=== PATIENT | male | born 1965 | race Caucasian/White ===

== ENCOUNTER → 2020-01-16 08:22 | Outpatient (BNVA) | payer MEDICARE, SELFPAY | PROVIDERS: PCP Family Medicine; Referring Provider Family Medicine; Visit Provider Anesthesiology Pain Medicine | DX: M50.90 Cervical disc disorder, unspecified, unspecified cervical region (principal); M43.12 Spondylolisthesis, cervical region; M54.12 Radiculopathy, cervical region; M54.16 Radiculopathy, lumbar region; K59.03 Drug induced constipation; T40.2X5A Adverse effect of other opioids, initial encounter; X58.XXXA Exposure to other specified factors, initial encounter; G37.3 Acute transverse myelitis in demyelinating disease of central nervous system; Z79.891 Long term (current) use of opiate analgesic | CPT/HCPCS: 99205 ==

== ENCOUNTER → 2020-02-06 08:55 | Outpatient (BNVA) | payer MEDICARE, SELFPAY | PROVIDERS: PCP Family Medicine; Visit Provider Anesthesiology Pain Medicine | DX: M54.12 Radiculopathy, cervical region (principal); M50.90 Cervical disc disorder, unspecified, unspecified cervical region; M54.42 Lumbago with sciatica, left side; M54.41 Lumbago with sciatica, right side; M54.16 Radiculopathy, lumbar region; G37.3 Acute transverse myelitis in demyelinating disease of central nervous system; K59.03 Drug induced constipation; T40.2X5A Adverse effect of other opioids, initial encounter; X58.XXXA Exposure to other specified factors, initial encounter; Z79.891 Long term (current) use of opiate analgesic | CPT/HCPCS: 99213 ==

== ENCOUNTER 2020-02-12 11:24 | Outpatient (RCR) | payer MEDICARE, SELFPAY | END 2020-02-17 23:59 | disposition home or self-care (01) | LOC: SPT 11:24 | PROVIDERS: PCP Family Medicine; Referring Provider Anesthesiology Pain Medicine; Visit Provider Anesthesiology Pain Medicine | DX: G37.3 Acute transverse myelitis in demyelinating disease of central nervous system (principal) | CPT/HCPCS: 97110; 97162 ==

== ENCOUNTER 2020-02-18 06:00 | Outpatient (RCR) | payer MEDICARE, SELFPAY | END 2020-03-19 23:59 | disposition home or self-care (01) | LOC: SPT 06:00 | PROVIDERS: PCP Family Medicine; Referring Provider Anesthesiology Pain Medicine; Visit Provider Anesthesiology Pain Medicine | DX: G37.3 Acute transverse myelitis in demyelinating disease of central nervous system (principal) | CPT/HCPCS: 97110 ==

== ENCOUNTER 2020-03-04 08:31 | Outpatient (CLI) | payer MEDICARE, SELFPAY ==
--- NOTE | 2020-03-04 08:45 | MR_ITS ---
WS: [id number] MRI CERVICAL SPINE HISTORY: M54.12 - Radiculopathy, cervical region COMPARISON: None available. Straightening of the normal cervical lordosis. 2 mm retrolisthesis of C3. Prior anterior cervical fusion from C5 to C7. Anterior fusion with complete ankylosis at the C5-6 dis c level. Signal within the cord is normal. No inferior displacement of cerebellar tonsils. Craniocervical junction, C1 and C2 relationship, odontoid process and soft tissues are normal. C2-C3: Normal. C3-C4: Shallow central disc protrusion with slight contact on the ventral thecal sac with no stenosis . Bilateral foraminal osteophytes resulting in mild central and bilateral foraminal stenosis. C4-C5: Mild osteophytic ridging and mild facet arthritis. Mild central and LEFT foraminal stenosis. D isc osteophyte complex slightly larger in the RIGHT foramen with moderate RIGHT foraminal narrowing. C5-C6: No significant stenosis. C6-C7: Mild annular disc bulging and osteophytic ridging. Mild bilateral foraminal narrowing. C7-T1: Mild annular disc bulging and osteophytic ridging. Mild central and bilateral foraminal stenos is. Paraspinal soft tissue are normal. MR/MR cervical spin wo con* [id number] IMPRESSION: 1. Prior anterior cervical fusion from C5 to C7. Complete ankylosis at the C5- 6 disc level. 2. No severe central or foraminal stenosis. 3. Mild central and bilateral foraminal stenosis at C3-4 predominantly due to osteophytic ridging. 4. Moderate RIGHT foraminal stenosis at C4-5 due to disc osteophyte complex. O therwise mild central LEFT foraminal stenosis at C4-5. 5. Mild bilateral foraminal stenosis at C6-7 and C7-T1. Mild central stenosis at C7-T1.
--- NOTE | 2020-03-04 09:30 | MR_ITS ---
WS: [id number] MRI LUMBAR SPINE NONCONTRAST HISTORY: M54.16 - Radiculopathy, lumbar region COMPARISON: None available. TECHNIQUE: Sagittal and axial multisequence imaging is submitted. Normal lumbar alignment with no compression fractures or marrow edema. Mild disc desiccation throughout. No fractures. Conus terminates normally at L1-2 disc level. L1-L2: Normal. L2-L3: Normal. L3-L4: Mild ligamentum flavum arthritis. Mild annular disc bulging and encroachment upon the thecal s ac. There is slight narrowing of the LEFT subarticular recess and central canal. Moderate LEFT forami nal stenosis. Mild LEFT subarticular recess and central stenosis. L4-L5: Mild annular disc bulging with moderate facet arthritis. Mild ligamentum flavum hypertrophy. M ild encroachment into the subarticular recesses resulting in mild to moderate bilateral foraminal alexandre nosis. L5-S1: Very slight annular disc bulging with facet and ligamentum flavum hypertrophy. Mild bilateral foraminal narrowing. MR/MR lumbar spine wo con* [id number] IMPRESSION: 1. No severe central or foraminal stenosis. 2. Moderate LEFT foraminal stenosis at L3-4 with mild LEFT subarticular recess and central stenosis at L3-4. 3. Mild to moderate bilateral foraminal stenosis at L4-5 and mild bilateral fo raminal stenosis at L5-S1. Stenoses predominantly due to facet and ligamentum f lavum arthritis.
== END 2020-03-04 08:32 | disposition home or self-care (01) ==
LOC: RADSHAW 08:35
PROVIDERS: PCP Family Medicine; Visit Provider Anesthesiology Pain Medicine
DX: M54.12 Radiculopathy, cervical region (principal); M54.16 Radiculopathy, lumbar region; M48.061 Spinal stenosis, lumbar region without neurogenic claudication
CPT/HCPCS: 72141; 72148

== ENCOUNTER → 2020-03-27 09:25 | Outpatient (BNVA) | payer MEDICARE, SELFPAY | PROVIDERS: PCP Family Medicine; Visit Provider Anesthesiology Pain Medicine | DX: M54.12 Radiculopathy, cervical region (principal); M50.90 Cervical disc disorder, unspecified, unspecified cervical region; G37.3 Acute transverse myelitis in demyelinating disease of central nervous system; M54.16 Radiculopathy, lumbar region; M54.9 Dorsalgia, unspecified; K59.03 Drug induced constipation; T40.2X5A Adverse effect of other opioids, initial encounter; X58.XXXA Exposure to other specified factors, initial encounter; Z79.899 Other long term (current) drug therapy; Z79.891 Long term (current) use of opiate analgesic | CPT/HCPCS: 99214; 99215 ==

== ENCOUNTER → 2020-04-24 10:59 | Outpatient (BNVA) | payer MEDICARE, SELFPAY | PROVIDERS: PCP Family Medicine; Visit Provider Anesthesiology Pain Medicine | DX: G37.3 Acute transverse myelitis in demyelinating disease of central nervous system (principal); M54.16 Radiculopathy, lumbar region; M54.12 Radiculopathy, cervical region; M50.90 Cervical disc disorder, unspecified, unspecified cervical region; M54.9 Dorsalgia, unspecified; K59.03 Drug induced constipation; T40.2X5A Adverse effect of other opioids, initial encounter; X58.XXXA Exposure to other specified factors, initial encounter; Z79.899 Other long term (current) drug therapy; Z79.891 Long term (current) use of opiate analgesic | CPT/HCPCS: 99214 ==

== ENCOUNTER 2020-06-24 10:47 | Outpatient (CLI) | payer MEDICARE, SELFPAY ==
--- NOTE | 2020-06-24 11:04 | MR_ITS ---
WS: [id number] MRI LEFT WRIST without CONTRAST. COMPARISON: None Multiplanar, multisequence imaging is performed without contrast. Marker is placed along the dorsal surface of the wrist at the area of pain. There is a small amount o f edema within the proximal scaphoid and adjacent lunate. The abnormal signal involves only focal are as of the bone. Abnormal signal also extends into the scapholunate ligament. Very mild widening of th e scapholunate interval. No additional marrow signal abnormalities. There is a small amount of soft t issue edema adjacent to the hamate. Very mild degenerative changes at the TFCC. No definite tear is identified. No appreciable fluid in t he distal radial ulnar joint. There is mild narrowing of the radiocarpal joint. MR/MR wrist LT wo con* [id number] IMPRESSION: 1. Edema in the proximal scaphoid consistent with a very small cortical fractu re with tear extending into the scapholunate ligament. 2. Small amount of marrow edema in the lunate. 3. No dislocation or separation.
== END 2020-06-24 10:48 | disposition home or self-care (01) ==
LOC: RADWPI 10:56
PROVIDERS: PCP Family Medicine; Visit Provider Nurse Practitioner Family
DX: M25.532 Pain in left wrist (principal); R60.0 Localized edema
CPT/HCPCS: 73221

== ENCOUNTER → 2020-07-08 10:07 | Outpatient (BNVA) | payer MEDICARE, SELFPAY | PROVIDERS: PCP Family Medicine; Referring Provider Nurse Practitioner Family; Visit Provider Specialist | DX: M25.532 Pain in left wrist (principal) | CPT/HCPCS: 73110 ==

== ENCOUNTER 2020-07-08 14:03 | Outpatient (CLI) | payer MEDICARE, SELFPAY | END 2020-07-08 14:04 | disposition home or self-care (01) | LOC: SPT 14:04 | PROVIDERS: PCP Family Medicine; Visit Provider Specialist | DX: Z46.89 Encounter for fitting and adjustment of other specified devices (principal); G37.3 Acute transverse myelitis in demyelinating disease of central nervous system | CPT/HCPCS: 97760; L3807 ==

== ENCOUNTER 2020-10-12 11:47 | Outpatient (RCR) | payer MEDICARE, SELFPAY | END 2020-10-17 23:59 | disposition home or self-care (01) | LOC: SOT 11:47 | PROVIDERS: PCP Family Medicine; Visit Provider Orthopaedic Surgery Hand Surgery | DX: S62.002D Unspecified fracture of navicular [scaphoid] bone of left wrist, subsequent encounter for fracture with routine healing (principal); X58.XXXD Exposure to other specified factors, subsequent encounter | CPT/HCPCS: 97110; 97165; 97530 ==

== ENCOUNTER 2020-10-18 06:00 | Outpatient (RCR) | payer MEDICARE, SELFPAY | END 2020-11-17 23:59 | disposition home or self-care (01) | LOC: SOT 06:00 | PROVIDERS: PCP Family Medicine; Visit Provider Orthopaedic Surgery Hand Surgery | DX: S62.002D Unspecified fracture of navicular [scaphoid] bone of left wrist, subsequent encounter for fracture with routine healing (principal); X58.XXXD Exposure to other specified factors, subsequent encounter | CPT/HCPCS: 97110; 97530 ==

== ENCOUNTER → 2021-05-06 08:49 | Outpatient (BNVA) | payer MEDICARE, SELFPAY | PROVIDERS: PCP Family Medicine; Visit Provider Internal Medicine | DX: E66.9 Obesity, unspecified (principal); Z68.42 Body mass index [BMI] 45.0-49.9, adult; Z87.891 Personal history of nicotine dependence | CPT/HCPCS: 99204; 99214 ==

== ENCOUNTER → 2021-05-24 10:19 | Outpatient (BNVA) | payer MEDICARE, SELFPAY | PROVIDERS: PCP Family Medicine; Visit Provider Podiatrist Foot & Ankle Surgery | DX: M79.671 Pain in right foot (principal); M77.31 Calcaneal spur, right foot | CPT/HCPCS: 73630 ==

== ENCOUNTER → 2021-06-21 09:44 | Outpatient (BNVA) | payer MEDICARE, SELFPAY | PROVIDERS: PCP Family Medicine; Visit Provider Podiatrist Foot & Ankle Surgery | DX: M21.621 Bunionette of right foot (principal); Z87.891 Personal history of nicotine dependence | CPT/HCPCS: 99214; 99215 ==

== ENCOUNTER 2021-06-25 08:59 | Day surgery (SDC) | payer MEDICARE, SELFPAY ==
[2021-06-24 14:28] VITALS: BMI 46.0
[2021-06-25] VITALS (9 sets, daily range): BP systolic 104–127; BP diastolic 51–82; PULSE 45–62; RESP 13–20; TEMP 36.1–36.6; O2SAT 95–99
--- NOTE | 2021-06-25 | SCC_ITS ---
Procedure done: Right tailor's bunionectomy CPT code 60773 1 seconds of fluoroscopic guidance, for a cumulative dose of 0.02mGy, was provided to Dr. Lange by the radiology department. C-arm images of the RIGHT foot were saved for the patient's permanent record. JUAN ANTONIO
[2021-06-25] MEDS: sodium chloride 0.9% 1,000 ML 30 ML IV (10:01)
[2021-06-25] MEDS: CELEcoxib 200 mg Capsule 400 MG PO (10:02)
--- NOTE | 2021-06-25 10:14 | ANES.PREANE2 ---
Pre-Anesthetic Assessment Height/Weight: Height 1.68 m Weight 129.274 kg Temp Pulse Resp BP Pulse Ox 97.5 F L 52 L 18 127/81 95 06/25/21 09:38 06/25/21 09:38 06/25/21 09:38 06/25/21 09:38 06/25/21 09:38 Preop Diagnosis: Painful right tailor's bunion Operation Date: 06/25/21 10:45 Proposed Procedures p Bunionectomy Tailors [id number]/[id number](Right) - Leon Lange DPM s Hammertoe Correction(Right) - Leon Lange DPM Familial anesthetic complications: none Was Beta Lori taken within 24 hours: Yes Was Clonidine taken within 24 hours: N/A Last intake: Intake Last Liquid Date 06/24/21 Last Liquid Time 20:00 Last Solid Date 06/24/21 Last Solid Time 20:00 Social Tobacco (chews) and No alcohol Exam alert, oriented x 3, clear to auscultation bilaterally and regular rate & rhythm Airway Mallampati: Class III Dentition: other (missing) Pulmonary Sleep Apnea (severe) CV/HEM Atrial Fibrillation and Hypertension s/p ablation GI Gastroesophageal Reflux Disease Metabolic Morbid Obesity Neuropsych transverse myelitis Anesthetic Plan ASA status: 3 Anesthesia: MAC Risk of > 500 ml blood loss (7ml/kg in children): No Medications/Allergies Home Medications Medication Instructions Recorded Confirmed Last Taken Type albuterol sulfate 90 mcg/actuation 2 puff INHALATION Q6H PRN 01/16/20 06/25/21 1 Day Ago History aerosol inhaler (Ventolin HFA) ~06/24/21 baclofen 5 mg tablet 20 mg PO DAILY 01/16/20 06/25/21 1 Day Ago History ~06/24/21 epinephrine 0.3 mg/0.3 mL 0.3 mg IM Q15M PRN 01/16/20 06/24/21 Unknown History injection, auto-injector ezetimibe 10 mg tablet 10 mg PO DAILY 01/16/20 06/25/21 1 Day Ago History ~06/24/21 fluticasone propionate 50 2 spray INTRANASAL DAILY 01/16/20 06/25/21 1 Day Ago History mcg/actuation nasal ~06/24/21 spray,suspension (Allergy Relief (fluticasone)) levocetirizine 5 mg tablet 5 mg PO DAILY 01/16/20 06/25/21 1 Day Ago History ~06/24/21 multivitamin with iron-mineral 1 tab PO DAILY 01/16/20 06/25/21 1 Day Ago History ~06/24/21 olopatadine 0.2 % eye drops 1 drop OPHTHALMIC (EYE) DAILY 01/16/20 06/25/21 2 Days Ago History ~06/23/21 pantoprazole 40 mg granules 40 mg PO DAILY 01/16/20 06/25/21 1 Day Ago History delayed-release for susp in packet ~06/24/21 sennosides 8.6 mg-docusate sodium 1 tab-cap PO DAILY 01/16/20 06/25/21 1 Day Ago History 50 mg tablet (Senexon-S) ~06/24/21 zolpidem 10 mg tablet (Ambien) 10 mg PO .1 hs tab 02/06/20 06/25/21 1 Day Ago History ~06/24/21 FAST FORM COCK UP SPLINT #1 ea NS 07/08/20 06/21/21 Unknown Rx zinc 50 mg tablet 50 mg PO DAILY 11/17/20 06/25/21 1 Day Ago History ~06/24/21 flecainide 150 mg tablet 150 mg PO Q12H #60 tab 04/12/21 06/25/21 1 Day Ago Rx ~06/24/21 metoprolol succinate 25 mg 25 mg PO DAILY #30 tab 04/12/21 06/25/21 1 Day Ago Rx tablet,extended release 24 hr ~06/24/21 meloxicam 15 mg tablet 15 mg PO DAILY 05/06/21 06/25/21 1 Day Ago History ~06/24/21 pen needle, diabetic 31 gauge x #100 ea 05/06/21 06/21/21 Unknown Rx 1/4 pregabalin 100 mg capsule (Lyrica) 150 mg PO BID 06/24/21 06/25/21 1 Day Ago History ~06/24/21 Allergies Allergy/AdvReac Type Severity Reaction Status Date / Time insect venom Allergy Severe ALGY-Anaphy Verified 06/25/21 09:48 laxis mirtazapine Allergy Intermediate ITCHING Verified 06/25/21 09:48 gabapentin Allergy UNKNOWN Verified 06/25/21 09:48 Current Medications Generic Name Dose Route Start Last Admin Trade Name Kendall PRN Reason Stop Dose Admin Sodium Chloride 1,000 mls @ 30 mls/hr 06/25/21 09:45 06/25/21 10:01 Sodium Chloride 0.9% IV 06/26/21 09:44 30 mls/hr .Q24H MARGE Administration PFSH Anesthesia Medical History Combined hyperlipidemia JESUS (generalized anxiety disorder) GERD (gastroesophageal reflux disease) History of myelitis HTN (hypertension) Low back pain Obesity Sleep apnea Surgical History History of cardiac radiofrequency ablation (RFA) History of cholecystectomy Hx of hernia repair Family History Sister Cancer Father Cancer Diabetes Mother CAD (coronary artery disease) Diabetes Sister Diabetes Social History Smoking and tobacco status: former smoker Quit status (tobacco): has quit using tobacco Second hand smoke exposure: No Smoking risk assessment/counseling performed?: No Alcohol intake: current Alcohol intake frequency: holidays/special occasions only Alcohol type: beer and hard liquor Desire information about alcohol rehabilitation?: No Counseling given: No Desire information about substance/drug rehabilitation?: No Counseling given: No Adopted: No Caregiver/support person: No Lives independently: Yes Household members: spouse Housing: House Marital status: Number of children: 2 Highest education level completed: High School Graduate service: No Current occupational status: disabled Pets and animals: Yes History of recent travel: No Leisure activites: hunting and fishing Sexually active: Yes Current gender identity: Male Fabby/Congregational: Muslim Special fabby needs: No Agree to transfusion: Yes Data Anesthesia Cardiac Studies: Cardiac Event Monitor 11/18/20
--- NOTE | 2021-06-25 11:03 | W.PM.OPSUD ---
Surgery/Procedure H&P Update DATE OF PROCEDURE: June 25, 2021 DATE H&P PERFORMED: 06/21/21 CHANGES TO PREVIOUS DOCUMENTATION: None PREOP DIAGNOSIS: Painful right tailor's bunion PLANNED PROCEDURE: Operation Date: 06/25/21 10:45 Proposed Procedures p Bunionectomy Tailors [id number]/m79.673(Right) - Leon Lange DPM s Hammertoe Correction(Right) - Leon Lange DPM
[2021-06-25] MEDS: ceFAZolin 3,000 MG in sodium chloride 0.9% (100 ml) 100 ML 200 MG IV (11:10)
--- NOTE | 2021-06-25 11:53 | P.OP_ITS ---
Operative Report Date of procedure: June 25, 2021 Pre-op diagnosis: Right tailor's bunion Post-op diagnosis: Same Procedure done: Right tailor's bunionectomy CPT code 68603 Implants: Right medical now [place] ProStep Specimens removed/disposition: None Pathology: None Surgeon: Leon Lange D.P.M. Smash Fixer: Shana Estimated blood loss: 5 23 IV fluids: 0 Urine output: None Complications: None Brief History: Progressive pain at the right lateral foot associated with the patient's mao's bunion, has a sharp stabbing pain on a daily basis no longer alleviated by wide accommodative shoes, padding, bracing and anti-inflammatories or activity modification. Would like to proceed with surgical correction with efforts of reducing his pain. Risks include pain, bleeding, numbness, infection, hardware failure, hardware rotation, delayed union, malunion, nonunion, recurrence of deformity, overcorrection deformity, failure to correct formally, chronic swelling, paresthesias, permanent numbness. Deep vein thrombosis, heart attack, stroke and . Patient is agreeable wishes to proceed. Informed consent signed by patient and myself. Patient n.p.o. since midnight. I initialed his right foot. No guarantees written, expressed or implied. Procedure: Under mild sedation the patient was brought to the operating room and remained on the gurney in supine position. A timeout was performed. Anesthesia was then administered by the anesthesia service. Local anesthesia injected by myself consisting of 20 cc of 0.25% Marcaine plain and a reverse Huizar block fashion to the right foot. Well-padded pneumatic tourniquet applied to the right ankle. The right lower extremity was then scrubbed, prepped and draped utilizing normal aseptic technique. Right foot was exanguinated with an Esmarch bandage and the tourniquet inflated to 250 mmHg. Attention was directed to the dorsal lateral aspect of the right fifth metatarsal phalangeal joint where a linear longitudinal incision was made medial and parallel to the extensor tendons. Dissection was carried down through the skin and subcutaneous tissue with care taken to retract and preserve neurovascular and tendinous structures. All bleeders were ligated and cauterized as necessary. Head of the fifth metatarsal dorsally, laterally and medially was freed from its soft tissue attachments followed by osteotomy at the metaphyseal flare in a transverse fashion and the head of the fifth metatarsal shifted medially and in more anatomically corrected position. Utilizing broaching small ProStep intramedullary implant was sized and implanted followed by fixation utilizing standard AO technique and professor of religious studies recommendations with a locking screw. Lateral shelf was transected and all rough edges were smoothed. Intraoperative fluoroscopy confirmed reduction of the intermetatarsal angle and excellent medial shift of the fifth metatarsal head which was fixated utilizing intramedullary implant and locking screw. Incision site was flushed with saline solution. Closed in a layered fashion with 3-0 Vicryl and 4-0 nylon. Exparel injected this was 10 cc of Exparel expanded with 10 cc of 0.25% Marcaine plain diffuse about the operative site in a grid like fashion subcutaneously. Incision was dressed with Adaptic, sterile 4 x 4, Kerlix, Javy wrap followed by application of a cam boot. Tourniquet was deflated and a prompt hyperemic response was noted to the distal digits of the right foot. Patient tolerated the procedure and anesthesia well and was transferred to the PACU with vital signs stable and vascular status intact. Following a period of postop monitoring he will be discharged home was prescribed oxycodone 10/325 mg to be taken every 6 hours as needed for pain. His elevate his right foot while resting. May be protected weightbearing with a cam boot. He is to keep his surgical dressing clean, dry and intact until follow-up next Monday in clinic for his first dressing change.
--- NOTE | 2021-06-25 12:07 | XR_ITS ---
WS: [id number] RIGHT FOOT: 3 VIEW(S) TECHNIQUE: AP, oblique and lateral. HISTORY: POST OP COMPARISON: 05/24/2021 Osteotomy involving the distal fifth metatarsal. Orthopedic fixation across the distal fifth metatars al ostomy site. Postoperative changes in the soft tissues. Better alignment involving the fifth metat arsal head. XR/XR foot RT min 3V* [id number] IMPRESSION: Status post fifth metatarsal osteotomy with screw and fixation across the osteo zain site.
--- NOTE | 2021-06-26 07:19 | ANE.PACU2 ---
Inpatient post-anesthesia follow up: Airway intact: Yes Vital signs: Temperature 97 F Pulse Rate 45 Respiratory Rate 18 Blood Pressure 127/82 Pulse Oximetry 98 Oxygen Delivery Me thod Room Air Oxygen Flow Rate 6.0 Fraction of Inspir ed Oxygen Hydration adequate: Yes Nausea and vomiting: No Pain level: 2 Mental status: Baseline
== END 2021-06-25 13:21 | disposition home or self-care (01) ==
PROVIDERS: PCP Family Medicine; Visit Provider Podiatrist Foot & Ankle Surgery
PROC: 0QBP0ZZ Excision of Left Metatarsal, Open Approach (ICD-10-PCS; CPT 28110; principal; 2021-06-25 10:45)
DX: M21.621 Bunionette of right foot (principal); F17.220 Nicotine dependence, chewing tobacco, uncomplicated; G47.30 Sleep apnea, unspecified; I48.91 Unspecified atrial fibrillation; I10 Essential (primary) hypertension; K21.9 Gastro-esophageal reflux disease without esophagitis; E66.01 Morbid (severe) obesity due to excess calories; Z68.42 Body mass index [BMI] 45.0-49.9, adult; E78.2 Mixed hyperlipidemia; E66.9 Obesity, unspecified; Z87.891 Personal history of nicotine dependence
CPT/HCPCS: 28110; 73630; 76000; C1713; C9290; J0690; J2250; J2704; J3010; J3490; J7030

== ENCOUNTER → 2021-07-02 09:15 | Outpatient (BNVA) | payer MEDICARE, SELFPAY | PROVIDERS: PCP Family Medicine; Visit Provider Podiatrist Foot & Ankle Surgery | DX: Z98.890 Other specified postprocedural states (principal) | CPT/HCPCS: 73630 ==

== ENCOUNTER → 2021-07-08 13:05 | Outpatient (BNVA) | payer MEDICARE, SELFPAY | PROVIDERS: PCP Family Medicine; Visit Provider Podiatrist Foot & Ankle Surgery | DX: M21.621 Bunionette of right foot (principal); Z98.890 Other specified postprocedural states | CPT/HCPCS: 73630 ==

== ENCOUNTER → 2021-07-22 13:03 | Outpatient (BNVA) | payer MEDICARE, SELFPAY | PROVIDERS: PCP Family Medicine; Visit Provider Podiatrist Foot & Ankle Surgery | DX: Z98.890 Other specified postprocedural states (principal); M21.621 Bunionette of right foot | CPT/HCPCS: 73630 ==

== ENCOUNTER → 2021-08-05 13:09 | Outpatient (BNVA) | payer MEDICARE, SELFPAY | PROVIDERS: PCP Family Medicine; Visit Provider Podiatrist Foot & Ankle Surgery | DX: Z98.890 Other specified postprocedural states (principal) | CPT/HCPCS: 73630 ==

== ENCOUNTER → 2021-08-30 10:29 | Outpatient (BNVA) | payer MEDICARE, SELFPAY | PROVIDERS: PCP Family Medicine; Visit Provider Internal Medicine Cardiovascular Disease | DX: R07.9 Chest pain, unspecified (principal); R00.2 Palpitations; I48.0 Paroxysmal atrial fibrillation; I10 Essential (primary) hypertension; E66.9 Obesity, unspecified; Z68.42 Body mass index [BMI] 45.0-49.9, adult; I45.10 Unspecified right bundle-branch block; G47.33 Obstructive sleep apnea (adult) (pediatric) | CPT/HCPCS: 93005; 99214 ==

== ENCOUNTER 2021-09-02 10:33 | Outpatient (CLI) | payer MEDICARE, SELFPAY ==
--- NOTE | 2021-09-02 10:43 | NMCV_ITS ---
NM nito perf SPECT r/s* [id number] Weeks, Cal Age: 55 Gender: M : 1965 Exam Date: 09/02/2021 12:04 Ordering Phys: Leesa Chaney MD ([email or web address]) Technologist: VIVIAN Shanks Exam Location: [facility] Indications: CHEST PAIN STRESS TEST Please see separate stress test report in [facility] for full findings IMAGE PROTOCOL Rest/Stress 1 Lexiscan Day Radiopharmaceutical Dose (mCi) Administration Site Administered by Rest: Tc-99m 11.0 IV VIVIAN Garcia Sestamibi Stress:Tc-99m 32.9 IV VIVIAN Garcia Sestamibi Rest: 02-Sep-2021 60 Discovery 630 Stress: 02-Sep-2021 30 Discovery 630 0.4mg Lexiscan. Images obtained in supine and prone position. SPECT RESULTS Technical Quality: Excellent Raw Data Analysis: Normal Image Corrections: No attenuation or motion correction applied Summed Stress Score: 6 Summed Rest Score: 3 Summed Difference Score: 3 PERFUSION FINDINGS Small size perfusion abnormality of mild severity of mid to apical inferolateral wall on rest images with reversibility in mid to apical inferior linton on supine stress images. Prone stress images with improved tracer uptake in inferior and mid inferolateral linton. FUNCTIONAL RESULTS (calculated via Gated SPECT) Stress Image LV EF (%): 67 Stress EDV (mL):153 TID: 0.95 Stress ESV (mL):51 FUNCTIONAL FINDINGS: The left ventricle is normal in size. Transient Ischemia Dilatation of 0.95. There is normal left ventricular systolic function. The left ventricular ejection fraction is normal with a value of 67%. There is normal left ventricular wall thickening. IMPRESSIONS 1. Small sized perfusion abnormality of mild severity of mid to apical inferolateral wall with reversibility in mid to apical inferior linton. 2. This may represent small area of ischemia in right coronary artery/circumflex artery territory. However, attenuation artifact cannot be completely ruled out. 3. Overall left ventricular systolic function is normal without regional wall motion abnormalities, LVEF=67%. 4. EKG portion of the study will be reported separately. Leesa Chaney MD (Electronically Signed) Final Date: 06 September 2021 15:18 S
--- NOTE | 2021-09-02 10:43 | ECG_ITS ---
[facility] Test Date: 2021-09-02 Pat Name: Cal Thapa Department: Room: Gender: Male Digital Product Manager: Marielos Ashley : 1965 Requested By: Leesa Chaney Order Number: [id number] Madhav MD: Leesa Chaney M.D. Interpretive Statements NAME OF STUDY: LEXISCAN SESTAMIBI STRESS TEST INDICATION: Chest Pain PROCEDURE: At the baseline, the blood pressure was 158/100 mmHg with a heart rate of 59 bpm. The electrocardiogram showed normal sinus rhythm with leftward axis. Incomplete right bundle branch block. Interpretation limited by baseline artifact. The Lexiscan was infused over a period of 20 seconds. A total of 0.4 milligrams of Lexiscan was infused. The stress phase was continued for a total of 5 minutes. Heart rate at the end of the stress phase was 69 bpm with a blood pressure of 151/96 mmHg. The EKG at the peak infusion revealed sinus rhythm with no significant ST-T wave changes. Sestamibi was injected 20 seconds after the Lexiscan infusion. Blood pressure at the end of the recovery phase was 152/95 mmHg with a heart rate of 65 beats per minute. CONCLUSION: 1. No significant EKG changes with the LexiScan infusion. 2. No LexiScan induced chest pain or cardiac arrhythmia. 3. Baseline hypertension with normal blood pressure and heart rate response. 4. Sestamibi/sestamibi perfusion scan pending; see separate report. Electronically Signed On 09-12-2021 12:08:06 CDT by Leesa Chaney M.D. [id number]
[2021-09-02 11:06] VITALS: BMI 45.1
[2021-09-02] MEDS: regadenoson 0.4 Mg/5 ml Syringe IVP (12:35)
[2021-09-02 12:52] VITALS: BP 152/95; PULSE 67
== END 2021-09-02 10:34 | disposition home or self-care (01) ==
PROVIDERS: PCP Family Medicine; Visit Provider Internal Medicine Cardiovascular Disease
DX: R07.9 Chest pain, unspecified (principal)
CPT/HCPCS: 78452; 93017; A9500; J2785

== ENCOUNTER → 2021-09-16 13:48 | Outpatient (BNVA) | payer MEDICARE, SELFPAY | PROVIDERS: PCP Family Medicine; Visit Provider Podiatrist Foot & Ankle Surgery | DX: Z98.890 Other specified postprocedural states (principal) | CPT/HCPCS: 73630; 99024 ==

== ENCOUNTER → 2021-09-24 08:17 | Outpatient (BNVA) | payer MEDICARE, SELFPAY | PROVIDERS: PCP Family Medicine; Visit Provider Nurse Practitioner Family | DX: R07.9 Chest pain, unspecified (principal); I10 Essential (primary) hypertension | CPT/HCPCS: 99213 ==

== ENCOUNTER → 2021-09-28 10:03 | Outpatient (BNVA) | payer MEDICARE, SELFPAY | PROVIDERS: PCP Family Medicine; Visit Provider Podiatrist Foot & Ankle Surgery | DX: Z98.890 Other specified postprocedural states (principal); M96.0 Pseudarthrosis after fusion or arthrodesis; M79.671 Pain in right foot; S92.901K Unspecified fracture of right foot, subsequent encounter for fracture with nonunion; X58.XXXD Exposure to other specified factors, subsequent encounter | CPT/HCPCS: 73610; 99214 ==

== ENCOUNTER → 2021-12-09 13:48 | Outpatient (BNVA) | payer MEDICARE, SELFPAY | PROVIDERS: PCP Family Medicine; Visit Provider Podiatrist Foot & Ankle Surgery | DX: M20.41 Other hammer toe(s) (acquired), right foot (principal); M96.89 Other intraoperative and postprocedural complications and disorders of the musculoskeletal system; T84.84XA Pain due to internal orthopedic prosthetic devices, implants and grafts, initial encounter; Y79.2 Prosthetic and other implants, materials and accessory orthopedic devices associated with adverse incidents | CPT/HCPCS: 73630; 99214 ==

== ENCOUNTER 2021-12-16 09:35 | Outpatient (CLI) | payer MEDICARE, SELFPAY ==
--- NOTE | 2021-12-16 10:15 | USCV_ITS ---
Cal Thapa Age: 55 Gender: M : 1965 Exam Date: 12/16/2021 10:28 Ordering Phys: Leesa Chaney MD ([email or web address]) Technologist: Abby Garcia Exam Location: [facility] [place] Indication: Chest Pain, HTN BP: 140 / 77 HR: 51 Rhythm: Sinus Technical Quality: Suboptimal MEASUREMENTS (Male / Female) Normal Values 2D ECHO LV Diastolic Diameter PLAX 5.3 cm 4.2 - 5.9 / 3.9 - 5.3 cm LV Systolic Diameter PLAX 3.4 cm IVS Diastolic Thickness 1.2 cm 0.6 - 1.0 / 0.6 - 0.9 cm IVS Systolic Thickness 2.1 cm LVPW Diastolic Thickness 1.1 cm 0.6 - 1.0 / 0.6 - 0.9 cm LVPW Systolic Thickness 1.4 cm LV Ejection Fraction 2D Teich 65.1 % LV Ejection Fraction MOD 2C 64.0 % LV Ejection Fraction 2C AL 65.3 % LA Diameter 3.9 cm LA Width 3.4 cm LA Height 4.5 cm RA Width 2.8 cm RA Height 5.4 cm Aorta at Sinotubular Diameter 3.6 cm IVC Diameter 2.2 cm M-MODE MV E Point Septal Separation 1.1 cm DOPPLER AV Peak Velocity 83.0 cm/s LVOT Peak Velocity 81.0 cm/s MV Peak Velocity 120.0 cm/s MV Area PHT 2.7 cm squared Mitral E to A Ratio 0.9 MV E' Velocity 48.5 cm/s Mitral E to MV E' Ratio 7.8 Mitral E to LV E' Lateral Ratio 8.0 Mitral E to LV E' Septal Ratio 7.8 TR Peak Velocity 77.0 cm/s TR Peak Gradient 2.4 mmHg Right Atrial Pressure 3.0 mmHg Pulmonary Artery Systolic Pressu 5.4 mmHg PV Peak Velocity 82.0 cm/s RV Acceleration Time 0.1 s RV Ejection Time 0.3 s RV AcT/ET 0.4 FINDINGS Left Ventricle Normal left ventricular size and systolic function. Left ventricular ejection fraction is estimated at 55-60 %. Although no diagnostic regional wall motion abnormality could be identified, this possibility cannot be completely excluded. Normal diastolic function. Right Ventricle Normal right ventricular size and systolic function. RVSP could not be calculated due to incomplete tricuspid regurgitation velocity profile. Right Atrium Right atrium not well visualized. Left Atrium Normal left atrial size. Mitral Valve Structurally normal mitral valve. No mitral valve stenosis. No mitral valve regurgitation. Aortic Valve Structurally normal trileaflet aortic valve. No aortic valve stenosis. No aortic valve regurgitation. Tricuspid Valve Tricuspid valve not well visualized. Pulmonic Valve Pulmonic valve not well visualized. Pericardium No pericardial effusion. Aorta Normal size aortic root and proximal ascending aorta. IVC Normal IVC dimension with <50% respiratory change of the inferior vena cava. CONCLUSIONS 1. Normal left ventricular size and systolic function. Left ventricular ejection fraction is estimated at 55-60 %. Although no diagnostic regional wall motion abnormality could be identified, this possibility cannot be completely excluded. Normal diastolic function. 2. Normal right ventricular size and systolic function. 3. No prior similar studies to compare. Leesa Chaney MD (Electronically Signed) Final Date: 21 December 2021 20:24 S
== END 2021-12-16 09:36 | disposition home or self-care (01) ==
PROVIDERS: PCP Family Medicine; Visit Provider Internal Medicine Cardiovascular Disease
DX: R07.9 Chest pain, unspecified (principal); I48.91 Unspecified atrial fibrillation; I10 Essential (primary) hypertension
CPT/HCPCS: 93306

== ENCOUNTER 2021-12-24 07:42 | Day surgery (SDC) | payer MEDICARE, SELFPAY ==
[2021-12-23 12:37] VITALS: BMI 41.9
[2021-12-24] VITALS (9 sets, daily range): BP systolic 112–144; BP diastolic 77–102; PULSE 66–75; RESP 16–18; TEMP 36.6–36.7; O2SAT 94–99
--- NOTE | 2021-12-24 | SCC_ITS ---
Procedure done: Deep hardware removal, fifth metatarsal head resection and fifth hammertoe correction all right foot. CPT codes 38851,87896,10014 8 seconds of fluoroscopic guidance, for a cumulative dose of 0.1 mGy, was provided to Dr. Lange by the radiology department. C-arm images of the RIGHT foot were saved for the patient's permanent record. [facility]
--- NOTE | 2021-12-24 | XR_ITS ---
WS: [id number] INTRAOPERATIVE TECHNIQUE: 2 Spot fluoroscopic images for intraoperative purposes. FLUOROSCOPY TIME: 8 seconds CLINICAL INFORMATION: Deep hardware removal, fifth metatarsal head resection and f COMPARISON: None. FINDINGS: 5th metatarsal head resection with hardware removal. 5th hammertoe correction. External fixation nicole extends through the 5th metatarsal. XR/XR foot RT 2V [id number] IMPRESSION: Images obtained for intraoperative purposes.
--- NOTE | 2021-12-24 06:13 | P.ANESASSM_ITS ---
Pre-Anesthetic Assessment Height/Weight: Height 1.68 m Weight 117.934 kg Preop Diagnosis: Painful right tailor's bunion Operation Date: 12/24/21 09:20 Proposed Procedures p Deep hardware removal, fifth metatarsal head resection and fifth hammertoe correction all right foot,[id number],12939,M20.41,T84.213A,M96.82(Right) - Leon Lange DPM s Metarsal Head Resection(Right) - ZAYDA Malhotra Hammertoe Correction(Right) - Leon Lange DPM Familial anesthetic complications: None Was Beta Lori taken within 24 hours: N/A Was Clonidine taken within 24 hours: N/A Last intake: 12/23/21 Social Tobacco (Chews nothing today ) and No alcohol Exam alert, oriented x 3, clear to auscultation bilaterally and regular rate & rhythm Airway Submandibular: within normal limits Cervical ROM: within normal limits Mallampati: Class I Dentition: full History/ROS No significant complaints Pulmonary Sleep Apnea (Severe) CV/HEM Atrial Fibrillation (s/p ablation 2013) and Hypertension METS > 4 Denies CAD TTE 12/16/21 CONCLUSIONS ?1. Normal left ventricular size and systolic function. Left ?ventricular ejection fraction is estimated at 55-60 %. Although ?no diagnostic regional wall motion abnormality could be ?identified, this possibility cannot be completely excluded. ?Normal diastolic function. ?2. Normal right ventricular size and systolic function. ?3. No prior similar studies to compare. Stress test 08/2021 CONCLUSION: 1. No significant EKG changes with the LexiScan infusion. 2. No LexiScan induced chest pain or cardiac arrhythmia. 3. Baseline hypertension with normal blood pressure and heart rate response. 4. Sestamibi/sestamibi perfusion scan pending; see separate report. None reported Hepatic None reported GI Gastroesophageal Reflux Disease (Denies GERD , in problem hx ) Metabolic Hyperlipidemia and Morbid Ob[place] [facility] [place] None reported Neuropsych Anxiety Hx of transverse myelitis Anesthetic Plan ASA status: 3 Anesthesia: Anesthesia Evaluation and General Other: We discussed risk and benefits of general anesthesia including PONV, sore throat (sometimes severe), corneal abrasion, positioning and peripheral nerve injuries, life threatening allergic reaction, post operative ICU admission requiring prolonged intubation, stroke, heart attack, , and rare incidences of recall. Patient consents to proceed with general anesthesia. Risk of > 500 ml blood loss (7ml/kg in children): No Medications/Allergies Home Medications Medication Instructions Recorded Confirmed Last Taken Type albuterol sulfate 90 mcg/actuation 2 puff inhalation Q6H PRN sob 01/16/20 12/23/21 1 Day Ago History aerosol inhaler (Ventolin HFA) ~06/24/21 baclofen 5 mg tablet 20 mg PO DAILY 01/16/20 12/24/21 12/23/21 History epinephrine 0.3 mg/0.3 mL 0.3 mg IM Q15M PRN Allergic 01/16/20 12/23/21 Unknown History injection, auto-injector Reaction ezetimibe 10 mg tablet 10 mg PO DAILY 01/16/20 12/24/21 12/23/21 History fluticasone propionate 50 2 spray intranasal DAILY 01/16/20 12/24/21 12/23/21 History mcg/actuation nasal spray,suspension (Allergy Relief (fluticasone)) levocetirizine 5 mg tablet 5 mg PO DAILY 01/16/20 12/24/21 12/23/21 History multivitamin with iron-mineral 1 tab PO DAILY 01/16/20 12/24/21 12/23/21 History olopatadine 0.2 % eye drops 1 drop ophthalmic (eye) DAILY 01/16/20 12/24/21 12/23/21 History pantoprazole 40 mg granules 40 mg PO DAILY 01/16/20 12/24/21 12/23/21 History delayed-release for susp in packet zolpidem 10 mg tablet (Ambien) 10 mg PO .1 hs 02/06/20 12/24/21 12/23/21 History zinc 50 mg tablet 50 mg PO DAILY 11/17/20 12/23/21 1 Day Ago History ~06/24/21 meloxicam 15 mg tablet 15 mg PO DAILY 05/06/21 12/24/21 12/23/21 History pregabalin 100 mg capsule (Lyrica) 150 mg PO BID radicular pain 06/24/21 12/24/21 12/23/21 History flecainide 150 mg tablet 150 mg PO Q12H #180 tabs 07/23/21 12/24/21 12/24/21 Rx ibuprofen 200 mg tablet 200 mg PO Q6H PRN Pain 08/30/21 12/23/21 Unknown History lidocaine 4 % topical gel 1 applic topical BID PRN Pain 08/30/21 12/23/21 Unknown History nitroglycerin 0.4 mg sublingual 0.4 mg sublingual Q5M PRN chest 08/30/21 12/23/21 Unknown Rx tablet (Nitrostat) pain #25 tabs sennosides 8.6 mg-docusate sodium 1 tab-cap PO DAILY PRN Constipation 08/30/21 12/24/21 12/23/21 History 50 mg tablet (Senexon-S) buspirone 5 mg tablet 5 mg PO TID #272 tabs 09/24/21 12/24/21 12/23/21 Rx metoprolol succinate 25 mg 25 mg PO DAILY 09/24/21 12/24/21 12/23/21 History tablet,extended release 24 hr hydrocodone 5 mg-acetaminophen 325 1 tab PO Q8H PRN pain 7 days #21 11/04/21 12/23/21 Unknown Rx mg tablet tabs Allergies Allergy/AdvReac Type Severity Reaction Status Date / Time insect venom Allergy Severe ALGY-Anaphy Verified 11/03/21 08:26 laxis mirtazapine Allergy Intermediate ITCHING Verified 11/03/21 08:26 gabapentin Allergy UNKNOWN Verified 11/03/21 08:26 [facility] Anesthesia Medical History Combined hyperlipidemia JESUS (generalized anxiety disorder) GERD (gastroesophageal reflux disease) History of myelitis HTN (hypertension) Left arm numbness Left shoulder pain Low back pain Obesity Sleep apnea Surgical History History of cardiac radiofrequency ablation (RFA) History of cholecystectomy Hx of hernia repair S/P foot surgery Family History Sister Cancer Father Cancer Diabetes Mother CAD (coronary artery disease) Diabetes Sister Diabetes Social History Smoking and tobacco status: never smoked Quit status (tobacco): has quit using tobacco Second hand smoke exposure: No Smoking risk assessment/counseling performed?: No Alcohol intake: current Alcohol intake frequency: holidays/special occasions only Alcohol type: beer and hard liquor Desire information about alcohol rehabilitation?: No Counseling given: No Desire information about substance/drug rehabilitation?: No Counseling given: No Adopted: No Caregiver/support person: No Lives independently: Yes Household members: spouse Housing: House Marital status: Number of children: 2 Highest education level completed: High School Graduate service: No Current occupational status: disabled Pets and animals: Yes History of recent travel: No Leisure activites: hunting and fishing Sexually active: Yes Current gender identity: Male Fabby/Jainism: Spiritism Special fabby needs: No Agree to transfusion: Yes Data Anesthesia Cardiac Studies: Echocardiogram 12/16/21 Sestamibi Stress Test (Cardiology) 09/02 Cardiac Event Monitor 11/18/20
[2021-12-24] MEDS: CELEcoxib 200 mg Capsule 400 MG PO (08:50)
[2021-12-24] MEDS: sodium chloride 0.9% 1,000 ML 30 ML IV (08:50)
[2021-12-24] MEDS: ceFAZolin 3,000 MG in sodium chloride 0.9% (100 ml) 100 ML 200 MG IV (09:12)
--- NOTE | 2021-12-24 09:16 | W.PM.OPSUD ---
Surgery/Procedure H&P Update DATE OF PROCEDURE: December 24, 2021 DATE H&P PERFORMED: 12/09/21 CHANGES TO PREVIOUS DOCUMENTATION: none PREOP DIAGNOSIS: Painful hardware, fifth hammertoe, nonunion all right foot PLANNED PROCEDURE: Operation Date: 12/24/21 09:20 Proposed Procedures p Deep hardware removal, fifth metatarsal head resection and fifth hammertoe correction all right foot,[id number],M20.41,T84.213A,M96.82(Right) - Leon Lange DPM s Metarsal Head Resection(Right) - Leon Lange DPM s Hammertoe Correction(Right) - Leon Lange DPM
[2021-12-24 09:30] LABS: Alanine Aminotransferase 61 U/L (0-41); Albumin Level 3.7 g/dL (3.5-5.2); Alkaline Phosphatase 99 U/L (40-130); Blood Urea Nitrogen 14 mg/dL (6-20); Calcium 8.4 mg/dL (8.5-10.5); Carbon Dioxide 25 mmol/L (22-29); Chloride 109 mmol/L (98-107); Globulin 2.8 g/dL (1.3-4.6); Glomerular Filtration Rate 139.4 mL/min (90-130); Glucose 114 mg/dL (65-115); Osmolality Calculated 297 mOsm/kg (285-295); Sodium 143 mmol/L (136-145); Total Bilirubin 0.2 mg/dL (0.15-1.2); Total Protein 6.5 g/dL (6.6-8.7)
[2021-12-24 09:33] LABS: Anion Gap 13.4 (5-19); Aspartate Amino Transferase 37 U/L (0-40); Potassium 4.4 mmol/L (3.5-5.1)
[2021-12-24] MEDS: fentaNYL 50 mcg/mL INJ 2mL IVP (10:40)
[2021-12-24] MEDS: oxyCODONE-APAP 10-325 mg Tablet 1 TAB PO (11:33)
--- NOTE | 2021-12-24 15:27 | ANE.PACU2 ---
Inpatient post-anesthesia follow up: Airway intact: Yes Vital signs: Temperature 97.8 F Pulse Rate 72 Respiratory Rate 18 Blood Pressure 124/78 Pulse Oximetry 96 Oxygen Delivery Me thod Room Air Oxygen Flow Rate 3 Fraction of Inspir ed Oxygen Hydration adequate: Yes Nausea and vomiting: No Pain level: 4 Mental status: Baseline
--- NOTE | 2021-12-24 16:19 | PM.OP ---
Operative Report Date of procedure: December 24, 2021 Pre-op diagnosis: Preop Diagnosis Painful hardware, fifth hammertoe, nonunion all right foot Post-op diagnosis: Same Procedure done: Deep hardware removal, fifth metatarsal head resection and fifth hammertoe correction all right foot. CPT codes 33391,56352,48202 Implants: 0.062 K wire, 4-0 Vicryl, 4-0 nylon, 0.25% Marcaine plain total of 20 cc, 10 cc of Exparel Specimens removed/disposition: Rachel Varela Surgeon: Leon Lange D.P.M. Brewing Director: Bethany Estimated blood loss: 5 See intraoperative documentation IV fluids: None Urine output: None Complications: None Findings: Nonunion right fifth met tarsal Brief History: Patient is a pleasant 55-year-old male who has had persistent pain to the right fifth metatarsal, fifth metatarsal phalangeal joint and hammertoe deformity.? I performed a tailor's bunionectomy June 25, 2021, unfortunately his osteotomy failed to go on to bony union.? Underwent a extensive period of immobilization with Cam boot, [id number] supplementation of vitamin C, D3 and calcium, also utilized a bone stimulator for greater than 6 weeks.? He continues to have a symptomatic nonunion that causes pain with standing, walking and everyday activities this affects his overall quality of life.? He also has pain at the hardware and a painful transverse plane dominant hammertoe deformity of the right fifth toe.? X-rays taken at today's visit 12/09/2021 right foot 3 view shows resorption at the osteotomy site without bony callus formation or interval of osseous healing at the osteotomy right fifth metatarsal head metaphyseal region.? There is lucency at the screw fixation within the head of the right fifth metatarsal and medullary canal down the right fifth metatarsal.? Transverse plane dominant with deviation medially at the right fifth toe. Discussed a variety of surgical options both conservative and nonconservative treatments were discussed.? Patient would like to proceed with surgical intervention feels like he is only getting worse.? I reviewed at length with the patient, the risks, potential complications, benefits, alternatives, expectations, and typical outcomes associated with the surgery. The risks and potential complications were explained in detail, including but not limited to infection, wound dehiscence or soft tissue complications, bleeding and hematoma, chronic edema, neuritis or nerve damage producing numbness or chronic pain, CRPS, failure to relieve pain or worsening pain, thick / painful / unsightly scar, limited motion / stiffness, malposition, delayed union, malunion, or nonunion, fracture, reaction to implants, anesthetic complications, venous thromboembolism, and deformity recurrence.? I discussed the notion of no regrets with the patient as it pertains to complications and outcomes. The patient seemed to understand the nature of the proposed care and required convalescence. They asked appropriate questions, answered to their satisfaction. They are aware no guarantees can be made as to a satisfactory outcome and they understand there may be other possible unforeseen complications or outcomes not listed here that will be treated accordingly if they arise. There were no written or implied guarantees given to the patient. They gave informed consent to proceed.? Recommended hardware removal, resection of the right fifth metatarsal head, right fifth hammertoe correction with K wire fixation planning on 6 weeks postoperatively.? Procedure: It wasUnder mild sedation the patient was brought to the operating room and remained on the gurney in supine position. A timeout was performed. Anesthesia was then administered by the anesthesia service. Local anesthesia was then injected by myself consisting of 20 cc of 0.25% Marcaine plain in a reverse Huizar block fashion to the right foot. Well-padded pneumatic tourniquet was applied to the right ankle. The right lower extremity was then scrubbed, prepped and draped utilizing normal aseptic technique. Exsanguinated with an Esmarch bandage and the tourniquet inflated to 250 mmHg. Attention was then directed to the previous cicatrix of the right foot dorsal lateral aspect of the right fifth metatarsal phalangeal joint, directly over the previous incision and #15 blade was utilized to incise skin with dissection carried down through subcutaneous tissue to the layer of hardware and fifth metatarsal, joint capsule. Care was taken to retract and preserve neurovascular and tendinous structures. All bleeders were ligated and cauterized as necessary. Titanium intramedullary implant, locking screw were explanted and passed from the operative field in toto without any remaining hardware. Of note a nonunion was appreciated with incomplete osseous healing at the fifth metatarsal. The incision was flushed with copious amounts of sterile skin solution. Attention was then directed to the head of the right fifth metatarsal which was freed from its soft tissue and capsular attachments and excised in total and passed from the operative field. Attention was then directed to the proximal interphalangeal joint dorsally at the right fifth toe where 2 semielliptical incisions were performed converging over the dorsal aspect of the right proximal interphalangeal joint, skin bridge was excised and passed off the field. Transverse capsulotomy and tenotomy was performed of the extensor tendons to gain access to the proximal to phalangeal joint, the head of the fifth toe proximal phalanx was transected and passed from operative field. The incision was flushed with saline solution and a 0.062 K wire was driven from proximal to distal starting at the base of the intermediate phalanx at the distal aspect of the right fifth toe and then driven from distal to proximal through the proximal phalanx and into the fifth metatarsal. While doing so fifth toe was held rectus in all 3 planes. Incisions were then flushed with copious amounts of sterile saline solution. Extensor tendon at the right fifth toe was reapproximated with 4-0 Vicryl. Joint capsule and periosteum at the right lateral forefoot incision was reapproximated utilizing 4-0 Vicryl. Subcutaneous tissue reapproximated utilizing 4-0 Vicryl and skin with 4-0 nylon. A Sergei ball was applied to the K wire distally. The incisions were then dressed with Adaptic, sterile 4 x 4, Kerlix and Javy wrap. Cam boot was applied. Tourniquet was then deflated and a prompt hyperemic response was noted to the distal digits of the right foot. Patient tolerated the procedure and anesthesia well and was transferred to the PACU with vital signs stable and vascular status intact. Following a period of postoperative monitoring he will be discharged home may be weightbearing as tolerated in the cam boot. Was given a prescription for hydrocodone 10/325 mg to be taken judiciously as needed every 6 hours as needed for pain. Was given at home care instructions and follow-up.
[2021-12-29 12:22] LABS: Vit D 1,25 (Oh)2, Total 43 pg/mL (18-72); Vit D2 1,25 (Oh)2 10 pg/mL; Vit D3 1,25 (Oh)2 33 pg/mL
== END 2021-12-24 11:50 | disposition home or self-care (01) ==
PROVIDERS: PCP Family Medicine; Visit Provider Podiatrist Foot & Ankle Surgery
PROC: (CPT 20680; principal; 2021-12-24 09:10)
PROC: (CPT 20680; 2021-12-24 09:10)
PROC: (CPT 28285; 2021-12-24 09:10)
DX: T84.84XA Pain due to internal orthopedic prosthetic devices, implants and grafts, initial encounter (principal); S92.901K Unspecified fracture of right foot, subsequent encounter for fracture with nonunion; M96.0 Pseudarthrosis after fusion or arthrodesis; F17.220 Nicotine dependence, chewing tobacco, uncomplicated; G47.30 Sleep apnea, unspecified; I48.91 Unspecified atrial fibrillation; I10 Essential (primary) hypertension; K21.9 Gastro-esophageal reflux disease without esophagitis; E78.5 Hyperlipidemia, unspecified; E66.01 Morbid (severe) obesity due to excess calories; Z68.41 Body mass index [BMI] 40.0-44.9, adult; F41.9 Anxiety disorder, unspecified
CPT/HCPCS: 20680; 28113; 28285; 73620; 76000; 80053; 82652; C1713; C9290; J0690; J1100; J2370; J2405; J2704; J3010; J3490; J7030

== ENCOUNTER → 2021-12-29 10:21 | Outpatient (BNVA) | payer MEDICARE, SELFPAY | PROVIDERS: PCP Family Medicine; Visit Provider Specialist | DX: S62.035A Nondisplaced fracture of proximal third of navicular [scaphoid] bone of left wrist, initial encounter for closed fracture (principal); S63.592A Other specified sprain of left wrist, initial encounter; X58.XXXA Exposure to other specified factors, initial encounter | CPT/HCPCS: 73130; 99214 ==

== ENCOUNTER 2022-01-06 08:09 | Outpatient (CLI) | payer MEDICARE, SELFPAY ==
--- NOTE | 2022-01-06 09:00 | MR_ITS ---
WS: [id number] MRI LEFT HAND without CONTRAST. COMPARISON: Prior wrist MRI 06/24/2020. Hand radiographs 12/29/2021 Multiplanar, multisequence imaging is performed without contrast. Extremely limited evaluation of the LEFT hand. Significant motion artifact. Patient was unable to rem ain still for this examination. Mild interphalangeal joint space narrowing throughout the hand. No fractures or dislocations. Limited evaluation of the carpal bones due to the motion artifact. There are a few small subchondral cysts n oted throughout the bones of the wrist including the trapezium, trapezoid, navicular, capitate and barclay mate. The lunate is poorly visualized. It would be difficult to exclude fractures or collapse. No soft tissue edema or hematoma is identified. The flexor tendons and sheaths appear appropriately p osition. No retraction of the tendons. The extensor tendons as visualized also appear normal course. There is a marker placed along the dorsal surface of the hand at the level of the proximal metacarpal s. No abnormality is noted within the extensor tendon sheath at this location. MR/MR hand LT wo con* [id number] IMPRESSION: 1. Significantly compromised MRI of the LEFT hand due to motion artifact. Jami ent was unable to remain still for this examination. 2. The flexor and extensor tendons and sheaths appear appropriate. There is no retraction or edema or tear identified on the imaging submitted. 3. Degenerative changes in the carpal bones from subchondral cystic changes an d joint space narrowing. 4. No significant amount of soft tissue edema. No Nena synovitis.
== END 2022-01-06 08:10 | disposition home or self-care (01) ==
LOC: RAD 08:10
PROVIDERS: PCP Family Medicine; Visit Provider Specialist
DX: M79.642 Pain in left hand (principal); Z98.890 Other specified postprocedural states; M20.41 Other hammer toe(s) (acquired), right foot; M96.89 Other intraoperative and postprocedural complications and disorders of the musculoskeletal system; T84.84XA Pain due to internal orthopedic prosthetic devices, implants and grafts, initial encounter; Y79.2 Prosthetic and other implants, materials and accessory orthopedic devices associated with adverse incidents
CPT/HCPCS: 73218; 73630; 99024

== ENCOUNTER → 2022-01-26 11:49 | Outpatient (BNVA) | payer MEDICARE, SELFPAY | PROVIDERS: PCP Family Medicine; Referring Provider Orthopaedic Surgery Hand Surgery; Visit Provider Specialist | DX: M54.12 Radiculopathy, cervical region (principal); M50.90 Cervical disc disorder, unspecified, unspecified cervical region | CPT/HCPCS: 95908; 95910 ==

== ENCOUNTER → 2022-02-02 09:58 | Outpatient (BNVA) | payer MEDICARE, SELFPAY | PROVIDERS: PCP Family Medicine; Visit Provider Specialist | DX: M77.8 Other enthesopathies, not elsewhere classified (principal); S62.03 Fracture of proximal third of navicular [scaphoid] bone of wrist; S63.592S Other specified sprain of left wrist, sequela; X58.XXXS Exposure to other specified factors, sequela | CPT/HCPCS: 20610; 99214; J1100; J2795; J3301 ==

== ENCOUNTER → 2022-02-03 13:57 | Outpatient (BNVA) | payer MEDICARE, SELFPAY | PROVIDERS: PCP Family Medicine; Visit Provider Podiatrist Foot & Ankle Surgery | DX: T84.84XA Pain due to internal orthopedic prosthetic devices, implants and grafts, initial encounter (principal); Y79.2 Prosthetic and other implants, materials and accessory orthopedic devices associated with adverse incidents; M20.41 Other hammer toe(s) (acquired), right foot; M96.89 Other intraoperative and postprocedural complications and disorders of the musculoskeletal system | CPT/HCPCS: 73630; 99024 ==

== ENCOUNTER → 2022-03-04 10:38 | Outpatient (BNVA) | payer MEDICARE, SELFPAY | PROVIDERS: PCP Family Medicine; Visit Provider Otolaryngology | DX: H72.01 Central perforation of tympanic membrane, right ear (principal) | CPT/HCPCS: 99203 ==

== ENCOUNTER → 2022-03-15 10:39 | Outpatient (BNVA) | payer MEDICARE, SELFPAY | PROVIDERS: PCP Family Medicine; Visit Provider Family Medicine Adult Medicine | DX: R68.89 Other general symptoms and signs (principal); B34.9 Viral infection, unspecified | CPT/HCPCS: 87400 ==

== ENCOUNTER 2022-03-28 12:38 | Emergency (ER) | payer MEDICARE, SELFPAY ==
[2022-03-28 14:06] VITALS: BP 155/93; PULSE 55; RESP 16; TEMP 36.7; O2SAT 97; BMI 44.4
== END 2022-03-28 14:57 | disposition left against medical advice (07) ==
PROVIDERS: Emergency Provider Physician Assistant; PCP Family Medicine
DX: Z53.21 Procedure and treatment not carried out due to patient leaving prior to being seen by health care provider (principal)

== ENCOUNTER → 2022-03-31 08:36 | Outpatient (BNVA) | payer MEDICARE, SELFPAY | PROVIDERS: PCP Family Medicine; Referring Provider Specialist; Visit Provider Specialist | DX: M54.12 Radiculopathy, cervical region (principal); M43.22 Fusion of spine, cervical region | CPT/HCPCS: 95860; 99202 ==

== ENCOUNTER → 2022-04-14 13:00 | Outpatient (BNVA) | payer MEDICARE, SELFPAY | PROVIDERS: PCP Family Medicine; Visit Provider Podiatrist Foot & Ankle Surgery | DX: Z98.890 Other specified postprocedural states (principal); M20.41 Other hammer toe(s) (acquired), right foot; M96.89 Other intraoperative and postprocedural complications and disorders of the musculoskeletal system | CPT/HCPCS: 99024 ==

== ENCOUNTER 2022-05-26 08:35 | Outpatient (CLI) | payer MEDICARE, SELFPAY ==
--- NOTE | 2022-05-26 09:30 | MR_ITS ---
WS: [id number] MRI CERVICAL SPINE NONCONTRAST HISTORY: M54.12 - Radiculopathy, cervical region, LEFT radiculopathy. COMPARISON: 03/04/2020 Technique: Multiplanar, multisequence noncontrast imaging of the cervical spine. Mild straightening of the normal cervical lordosis. Prior anterior cervical fusion from C5 to C7. Int erbody spacer at C5-6. Signal within the cervical cord is normal. Visualized posterior fossa is unremarkable. Craniocervical junction, C1 and C2 relationship, odontoid process and soft tissues are normal. C2-C3: Normal. C3-C4: Increasing annular disc bulging and central protrusion. There is now contact with mild deformi ty on the ventral cervical cord. Moderate central and bilateral foraminal stenosis, RIGHT greater darleen n LEFT. C4-C5: Mild osteophytic ridging and annular disc bulge. Small disc osteophyte complexes and the neura l foramina. Moderate central and bilateral foraminal stenosis, RIGHT greater than LEFT. C5-C6: Mild osteophytic ridging with mild central and foraminal stenosis. C6-C7: Mild osteophytic ridging with mild facet disease. Mild central and foraminal narrowing predomi nantly due to osteophyte ridging. C7-T1: Mild central and bilateral foraminal stenosis. Small disc osteophytes in the neural foramina. Paraspinal soft tissue are normal. MR/MR cervical spin wo con* [id number] IMPRESSION: 1. Interval progression of stenosis at C3-4. Increasing disc osteophyte contac t on the ventral cervical cord with slight displacement. Moderate central and b ilateral foraminal stenosis, RIGHT greater than LEFT. 2. Anterior cervical fusion from C5 to C7 is unchanged. 3. Moderate central and bilateral frontal stenosis, RIGHT greater than LEFT at C4-5. Mild progression since the prior study. 4. Mild central and foraminal stenosis at C5-6, C6-7 and C7-T1.
== END 2022-05-26 08:36 | disposition home or self-care (01) ==
LOC: RAD 08:38
PROVIDERS: PCP Family Medicine; Visit Provider Specialist
DX: M54.12 Radiculopathy, cervical region (principal); G37.3 Acute transverse myelitis in demyelinating disease of central nervous system; M50.90 Cervical disc disorder, unspecified, unspecified cervical region; M48.02 Spinal stenosis, cervical region; M43.22 Fusion of spine, cervical region; M48.03 Spinal stenosis, cervicothoracic region
CPT/HCPCS: 72141

== ENCOUNTER → 2022-08-19 07:59 | Outpatient (BNVA) | payer MEDICARE, SELFPAY | PROVIDERS: PCP Family Medicine; Visit Provider Otolaryngology | DX: H66.91 Otitis media, unspecified, right ear (principal); H72.01 Central perforation of tympanic membrane, right ear | CPT/HCPCS: 99213 ==

== ENCOUNTER → 2022-08-26 10:38 | Outpatient (BNVA) | payer MEDICARE, SELFPAY | PROVIDERS: PCP Family Medicine; Visit Provider Internal Medicine | DX: R00.2 Palpitations (principal); I48.0 Paroxysmal atrial fibrillation; I10 Essential (primary) hypertension; Z68.42 Body mass index [BMI] 45.0-49.9, adult; E66.9 Obesity, unspecified; G47.33 Obstructive sleep apnea (adult) (pediatric) | CPT/HCPCS: 99214 ==

== ENCOUNTER → 2022-09-13 12:53 | Outpatient (BNVA) | payer MEDICARE, SELFPAY | PROVIDERS: PCP Family Medicine; Visit Provider Podiatrist Foot & Ankle Surgery | DX: M19.172 Post-traumatic osteoarthritis, left ankle and foot (principal) | CPT/HCPCS: 73630; 99214 ==

== ENCOUNTER → 2022-09-30 11:56 | Outpatient (BNVA) | payer MEDICARE, SELFPAY | PROVIDERS: PCP Family Medicine; Visit Provider Otolaryngology | DX: H66.91 Otitis media, unspecified, right ear (principal) | CPT/HCPCS: 99212 ==

== ENCOUNTER → 2022-10-14 12:17 | Outpatient (BNVA) | payer MEDICARE, SELFPAY | PROVIDERS: PCP Family Medicine; Visit Provider Podiatrist Foot & Ankle Surgery | DX: M19.172 Post-traumatic osteoarthritis, left ankle and foot (principal) | CPT/HCPCS: 20600 ==

== ENCOUNTER 2022-10-28 13:08 | Outpatient (CLI) | payer MEDICARE, SELFPAY ==
[2022-11-02 16:21] LABS: Rocky Mountain IgG DETECTED; Rocky Mountain IgM NOT DETECTED
== END 2022-10-28 13:09 | disposition home or self-care (01) ==
PROVIDERS: PCP Family Medicine; Visit Provider Family Medicine
DX: T14.8XXA Other injury of unspecified body region, initial encounter (principal); W57.XXXA Bitten or stung by nonvenomous insect and other nonvenomous arthropods, initial encounter
CPT/HCPCS: 86618; 86666; 86757

== ENCOUNTER → 2022-11-16 14:00 | Outpatient (BNVA) | payer MEDICARE, SELFPAY | PROVIDERS: PCP Family Medicine; Visit Provider Dermatology | DX: D17.22 Benign lipomatous neoplasm of skin and subcutaneous tissue of left arm (principal); B07.8 Other viral warts; L72.0 Epidermal cyst; L57.0 Actinic keratosis; L57.8 Other skin changes due to chronic exposure to nonionizing radiation; Z85.828 Personal history of other malignant neoplasm of skin | CPT/HCPCS: 10060; 17000; 17110; 99213 ==

== ENCOUNTER → 2023-01-12 09:58 | Outpatient (BNVA) | payer MEDICARE, SELFPAY | PROVIDERS: PCP Family Medicine; Visit Provider Podiatrist Foot & Ankle Surgery | DX: M19.172 Post-traumatic osteoarthritis, left ankle and foot; M19.072 Primary osteoarthritis, left ankle and foot | CPT/HCPCS: 99213 ==

== ENCOUNTER → 2023-02-20 08:16 | Outpatient (BNVA) | payer MEDICARE, SELFPAY | PROVIDERS: PCP Family Medicine; Referring Provider Family Medicine; Visit Provider Surgery | DX: K21.9 Gastro-esophageal reflux disease without esophagitis (principal); R10.9 Unspecified abdominal pain | CPT/HCPCS: 99204 ==

== ENCOUNTER 2023-03-07 09:35 | Outpatient (CLI) | payer MEDICARE, SELFPAY ==
[2023-03-07 10:58] LABS: 25 Hydroxy Vitamin D 33 ng/mL (30-100); Chol HDL Ratio 5.26 mg/dL (1.0-5.00); Cholesterol 200 mg/dL (0-200); HDL Cholesterol 38 mg/dL (60-100); LDL Cholesterol Calculated 152 mg/dL (50-129); Triglycerides 52 mg/dL (0-150); Vitamin B12 1062 pg/mL (232-1245)
[2023-03-07 11:19] LABS: Prostate Specific Antigen Scr 0.61 ng/mL (0-4)
== END 2023-03-07 09:36 | disposition home or self-care (01) ==
PROVIDERS: PCP Family Medicine; Visit Provider Family Medicine
DX: E55.9 Vitamin D deficiency, unspecified (principal); E78.2 Mixed hyperlipidemia; Z12.5 Encounter for screening for malignant neoplasm of prostate; R53.83 Other fatigue
CPT/HCPCS: 36415; 80061; 82306; 82607; G0103

== ENCOUNTER 2023-03-15 05:40 | Day surgery (SDC) | payer MEDICARE, SELFPAY ==
[2023-03-15 06:13] VITALS: BP 137/89; PULSE 59; RESP 18; TEMP 36.4; O2SAT 97; BMI 40.3
[2023-03-15] MEDS: sodium chloride 0.9% 1,000 ML 30 ML IV (06:25)
--- NOTE | 2023-03-15 06:25 | P.HPUD_ITS ---
Surgery/Procedure H&P Update DATE OF PROCEDURE: March 15, 2023 DATE H&P PERFORMED: 02/20/23 H&P UPDATE INFORMATION: I have reviewed H&P completed within last 30 days, I have examined patient prior to procedure, No changes to prior documentation and H&P is in [facility] [place] EMR on date indicated PLANNED PROCEDURE: Operation Date: 03/15/23 07:00 Proposed Procedures p [id number] egd 13432 colon G0121 screen colon A risk K21.9,R10.9(Not Applicable) - Jerman De Guzman MD s Colonoscopy(Not Applicable) - Jerman De Guzman MD
--- NOTE | 2023-03-15 06:53 | ANES.PREANE2 ---
Pre-Anesthetic Assessment Height/Weight: Height 1.68 m Weight 113.398 kg Temp Pulse Resp BP Pulse Ox O2 Del Method 97.6 F 59 L 18 137/89 97 Room Air 03/15/23 06:13 03/15/23 06:13 03/15/23 06:13 03/15/23 06:13 03/15/23 06:13 03/15/23 06:13 Preop Diagnosis: Abd pain Operation Date: 03/15/23 07:00 Proposed Procedures p [id number] egd [id number] colon G0121 screen colon A risk K21.9,R10.9(Not Applicable) - Jerman De Guzman MD s Colonoscopy(Not Applicable) - Jerman De Guzman MD Was Beta Lori taken within 24 hours: N/A Was Clonidine taken within 24 hours: N/A Last intake: Intake Last Liquid Date 03/14/23 Last Liquid Time 22:00 Last Solid Date 03/13/23 Last Solid Time 16:00 Social Tobacco Chews and THC Exam alert, oriented x 3, clear to auscultation bilaterally and regular rate & rhythm Airway Submandibular: within normal limits Cervical ROM: within normal limits Mallampati: Class II Dentition: full History/ROS No significant history except as noted and No significant complaints Pulmonary Sleep Apnea CV/HEM Hypertension None reported Hepatic None reported GI Gastroesophageal Reflux Disease Metabolic Morbid Obesity Musc/skel Lower Back Pain and Osteoarthritis/DJD Neuropsych Anxiety and Depression Anesthetic Plan ASA status: 3 Anesthesia: Anesthesia Evaluation and MAC Risk of > 500 ml blood loss (7ml/kg in children): No Medications/Allergies Home Medications Medication Instructions Recorded Confirmed Last Taken Type albuterol sulfate 90 mcg/actuation 2 puff inhalation Q6H PRN sob 01/16/20 03/09/23 03/08/23 History aerosol inhaler (Ventolin HFA) baclofen 5 mg tablet 20 mg PO BID 01/16/20 03/09/23 03/14/23 History epinephrine 0.3 mg/0.3 mL 0.3 mg IM Q15M PRN Allergic 01/16/20 03/09/23 Unknown History injection, auto-injector Reaction ezetimibe 10 mg tablet (Zetia) 10 mg PO DAILY 01/16/20 03/09/23 03/14/23 History multivitamin with iron-mineral 1 tab PO DAILY 01/16/20 03/09/23 03/14/23 History zolpidem 10 mg tablet (Ambien) 10 mg PO .1 hs 02/06/20 03/09/23 03/14/23 History meloxicam 15 mg tablet 15 mg PO DAILY 05/06/21 03/09/23 03/14/23 History ibuprofen 200 mg tablet 200 mg PO Q6H PRN Pain 08/30/21 03/09/23 Unknown History nitroglycerin 0.4 mg sublingual 0.4 mg sublingual Q5M PRN chest 08/30/21 03/09/23 Unknown Rx tablet (Nitrostat) pain #25 tabs sennosides 8.6 mg-docusate sodium 1 tab-cap PO DAILY 08/30/21 03/09/23 03/14/23 History 50 mg tablet (Senexon-S) hydrocodone 5 mg-acetaminophen 325 1 tab PO Q8H PRN pain 7 days #21 01/10/22 03/09/23 Unknown Rx mg tablet tabs fluticasone propionate 50 2 spray intranasal DAILY #48 grams 04/21/22 03/09/23 03/14/23 Rx mcg/actuation nasal spray,suspension (Allergy Relief (fluticasone)) buspirone 10 mg tablet 10 mg PO TID #180 tabs 09/30/22 03/09/23 03/14/23 Rx pantoprazole 40 mg tablet,delayed 40 mg PO BID 6 weeks #84 tabs 02/20/23 03/09/23 03/14/23 Rx release (Protonix) sucralfate 100 mg/mL oral 10 ml PO BID 6 weeks #840 mL 02/20/23 03/09/23 03/14/23 Rx suspension metoprolol succinate 25 mg 25 mg PO BEDTIME 03/14/23 03/14/23 03/14/23 History tablet,extended release 24 hr Allergies Allergy/AdvReac Type Severity Reaction Status Date / Time insect venom Allergy Severe ALGY-Anaphy Verified 03/09/23 09:28 laxis mirtazapine Allergy Intermediate ITCHING Verified 03/09/23 09:28 gabapentin Allergy UNKNOWN Verified 03/09/23 09:28 alphagal Allergy upset GI Uncoded 03/09/23 09:28 Current Medications Generic Name Dose Route Start Last Admin Trade Name Freq PRN Reason Stop Dose Admin Sodium Chloride 1,000 mls @ 30 mls/hr 03/15/23 06:15 03/15/23 06:25 Sodium Chloride 0.9% IV 03/16/23 06:14 30 mls/hr .Q24H MARGE Administration PFSH Anesthesia Medical History Acute viral syndrome Left shoulder pain Left arm numbness Combined hyperlipidemia Obesity Low back pain History of myelitis Sleep apnea HTN (hypertension) GERD (gastroesophageal reflux disease) JESUS (generalized anxiety disorder) Surgical History (Updated 02/20/23 @ 08:36 by Freida Malik, CT) Hx of nasal sinusotomy History of placement of ear tubes S/P foot surgery Hx of hernia repair History of cardiac radiofrequency ablation (RFA) History of cholecystectomy Family History Sister Cancer Father Cancer Diabetes Mother CAD (coronary artery disease) Diabetes Sister Diabetes Social History (Updated 02/20/23 @ 08:[address]) Smoking and tobacco/nicotine status: never used tobacco/nicotine Quit status (tobacco/nicotine): has quit using Second hand smoke exposure: No Alcohol intake: current Alcohol intake frequency: holidays/special occasions only Alcohol type: beer and hard liquor Substance/Drug Use: current Adopted: No Caregiver/support person: No Lives independently: Yes Household members: spouse Housing: House Marital status: Number of children: 2 Highest education level completed: High School Graduate service: No Current occupational status: disabled Pets and animals: Yes Leisure activites: hunting and fishing Sexually active: Yes Do you think of yourself as: Straight/Heterosexual Current gender identity: Male Fabby/Oriental Orthodox: Mormonism Special fabby needs: No Agree to transfusion: Yes Data Anesthesia Cardiac Studies: Echocardiogram 12/16/21 Sestamibi Stress Test (Cardiology) 09/02/21 Cardiac Event Monitor 11/18/20
[2023-03-15 07:35] VITALS: BP 152/95; PULSE 68; RESP 16; TEMP 36.2; O2SAT 94
[2023-03-15 07:48] VITALS: BP 134/86; PULSE 61; RESP 16; O2SAT 96
--- NOTE | 2023-03-15 08:00 | ANE.PACU2 ---
Inpatient post-anesthesia follow up: Airway intact: Yes Vital signs: Temperature 97.1 F Pulse Rate 61 Respiratory Rate 16 Blood Pressure 134/86 Pulse Oximetry 96 Oxygen Delivery Me thod Room Air Oxygen Flow Rate Fraction of Inspir ed Oxygen Hydration adequate: Yes Nausea and vomiting: No Pain level: 1 Mental status: Baseline
== END 2023-03-15 08:07 | disposition home or self-care (01) ==
PROVIDERS: PCP Family Medicine; Visit Provider Surgery
PROC: 0DJ08ZZ Inspection of Upper Intestinal Tract, Via Natural or Artificial Opening Endoscopic (ICD-10-PCS; CPT 43235; principal; 2023-03-15 07:00)
PROC: 0DJD8ZZ Inspection of Lower Intestinal Tract, Via Natural or Artificial Opening Endoscopic (ICD-10-PCS; CPT 45378; 2023-03-15 07:00)
DX: Z12.11 Encounter for screening for malignant neoplasm of colon (principal); K21.9 Gastro-esophageal reflux disease without esophagitis; K29.50 Unspecified chronic gastritis without bleeding; K31.7 Polyp of stomach and duodenum; D12.3 Benign neoplasm of transverse colon; K62.1 Rectal polyp; K44.9 Diaphragmatic hernia without obstruction or gangrene; G47.30 Sleep apnea, unspecified; I10 Essential (primary) hypertension; E66.01 Morbid (severe) obesity due to excess calories; Z68.41 Body mass index [BMI] 40.0-44.9, adult
CPT/HCPCS: 43239; 45380; 45385; 88305; 88342; J7030

== ENCOUNTER 2023-03-20 15:13 | Emergency (ER) | payer MEDICARE, MEDICAID, SELFPAY ==
[2023-03-20 15:30] VITALS: BP 167/99; PULSE 78; RESP 18; TEMP 36.7; O2SAT 98; BMI 42.3
--- NOTE | 2023-03-20 18:16 | ED_ITS ---
HPI - Skin/Abscess/Foreign Bdy General: Chief complaint: Skin/Abscess/Foreign Body Stated complaint: knot of right side of face Time Seen by Provider: 03/20/23 17:48 Source: patient Mode of arrival: ambulatory Limitations: no limitations History of Present Illness: 57-year-old male who had a sebaceous cys t to his right cheek that was drained 1 month ago he states that it is back its doubled in size he is having pain over the site he denies any fevers denies any worsening improving factors. Associated symptoms: Deny chills, fever(s), nausea or vomiting Review of Systems Const: Denies: fever(s), chills, body aches or change in appetite ENMT: Denies: throat pain or dental pain Card: Denies: chest pain Resp: Denies: dyspnea GI: Denies: abdominal pain, nausea, vomiting or diarrhea Musc: Denies: neck pain or back pain Skin/Breast: Denies: rash Neuro: Denies: headache(s) PFSH ED PFSH: Medical History Acute viral syndrome Left shoulder pain Left arm numbness Combined hyperlipidemia Obesity Low back pain History of myelitis Sleep apnea HTN (hypertension) GERD (gastroesophageal reflux disease) JESUS (generalized anxiety disorder) Surgical History Hx of nasal sinusotomy History of placement of ear tubes S/P foot surgery Hx of hernia repair History of cardiac radiofrequency ablation (RFA) History of cholecystectomy Family History Sister Cancer Father Cancer Diabetes Mother CAD (coronary artery disease) Diabetes Sister Diabetes Social History Smoking and tobacco/nicotine status: never used tobacco/nicotine Quit status (tobacco/nicotine): has quit using Second hand smoke exposure: No Alcohol intake: current Alcohol intake frequency: holidays/special occasions only Alcohol type: beer and hard liquor Substance/Drug Use: current Adopted: No Caregiver/support person: No Lives independently: Yes Household members: spouse Housing: House Marital status: Number of children: 2 Highest education level completed: High School Graduate service: No Current occupational status: disabled Pets and animals: Yes Leisure activites: hunting and fishing Sexually active: Yes Do you think of yourself as: Straight/Heterosexual Current gender identity: Male Fabby/Gnosticist: Yazidi Special fabby needs: No Agree to transfusion: Yes Physical Exam Const: COMMON NORMALS: no acute distress, patient oriented x3 and healthy appearing HENMT: COMMON NORMALS: normocephalic and atraumatic HEAD & SCALP: normocephalic and atraumatic OTHER: Sebaceous cyst noted to right side of the face Eye: COMMON NORMALS: Equal, round and reactive pupils present and EOMs intact bilaterally PUPIL: Yes Equal, round and reactive pupils present Neck/C-Spine: COMMON NORMALS: supple Chest: COMMONS NORMALS: normal inspection of the chest Resp: COMMON NORMALS: normal respiratory effort Cardio: COMMON NORMALS: regular rate, regular rhythm and No murmurs present (Cardio) RATE: regular rate RHYTHM: regular rhythm Extremity: COMMON NORMALS: normal to inspection and full ROM Neuro: COMMON NORMALS: patient oriented x3, moves all extremities and no focal motor deficits Psych: COMMON NORMALS: mental status grossly normal, Normal thought process present and cooperative THOUGHT PROCESS: Normal thought process present Skin: COMMON NORMALS: no rashes or lesions noted GENERAL SKIN EXAM: no rashes or lesions noted Procedures Abscess I/D Site: face Side (if applicable): right Local Anesthetic: lidocaine 1% Amount of anesthesia used (mL): 6 Technique: incised with #11 blade Irrigation: No Packing used?: none Course Vital Signs: Vital signs: Vital Signs Temperature 98.1 F 03/20/23 15:30 Pulse Rate 78 03/20/23 15:30 Respiratory Rate 18 03/20/23 15:30 Blood Pressure 167/99 03/20/23 15:30 Pulse Oximetry 98 03/20/23 15:30 Oxygen Delivery Me thod Room Air 03/20/23 15:30 MDM - Skin/Abscess/Foreign Bdy Medicial Decision Making Patient presents here with a sebaceous cyst I did incise and drain did have some purulent material there as well we will start him on Bactrim he has follow-up with Dr. Pollard in 2 weeks of dermatology follow-up as scheduled return if worsening he understands agrees to plan No radiology studies performed this visit Discharge Plan Discharge Patient Disposition: Home Clinical Impression: Sebaceous cyst Condition: Stable Prescriptions: New hydrocodone-acetaminophen 5-325 mg tablet 1 tab PO Q6H PRN (Reason: pain) Qty: 14 0RF Bactrim DS 800-160 mg tablet 1 tab PO BID 10 Days Qty: 20 0RF No Action zolpidem [Ambien] 10 mg tablet 10 mg PO .1 hs nitroglycerin [Nitrostat] 0.4 mg tablet, sublingual 0.4 mg sublingual Q5M PRN (Reason: chest pain) Qty: 25 3RF Rx Instructions: do not exceed 3 doses per episode baclofen 5 mg tablet 20 mg PO BID ezetimibe [Zetia] 10 mg tablet 10 mg PO DAILY albuterol sulfate [Ventolin HFA] 90 mcg/actuation HFA aerosol inhaler 2 puff INHALATION Q6H PRN (Reason: sob) epinephrine 0.3 mg/0.3 mL auto-injector 0.3 mg IM Q15M PRN (Reason: Allergic Reaction) Rx Instructions: for 2 doses multivitamin with iron-mineral Tablet 1 tab PO DAILY sennosides-docusate sodium [Senexon-S] 8.6-50 mg tablet 1 tab-cap PO DAILY meloxicam 15 mg tablet 15 mg PO DAILY pantoprazole [Protonix] 40 mg tablet,delayed release (DR/EC) 40 mg PO BID 42 Days Qty: 84 0RF sucralfate 100 mg/mL suspension 10 ml PO BID 42 Days Qty: 840 0RF hydrocodone-acetaminophen 5-325 mg tablet 1 tab PO Q8H PRN (Reason: pain) 7 Days Qty: 21 0RF fluticasone propionate [Allergy Relief (fluticasone)] 50 mcg/actuation spray,suspension 2 spray INTRANASAL DAILY Qty: 48 0RF Rx Instructions: administer into each nostril buspirone 10 mg tablet 10 mg PO TID Qty: 180 2RF metoprolol succinate 25 mg tablet extended release 24 hr 25 mg PO BEDTIME Rx Instructions: MUST have follow-up for further refills Discharge Orders: Discharge ED (Routine); Ordered 03/20/23 Ordered By: Stephen Mcguire Referrals: Andrés Cohn [Primary Care Provider] - Lisa Pollard DO [Physician] - 1-3 days Discharge Diet: Advance as tolerated Discharge Activity: Resume usual activity Patient Instructions: Dermal Cyst Excision (DC), Cyst (ED), Opioid Safety Coding Level of Care Code ED 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
== END 2023-03-20 18:23 | disposition home or self-care (01) ==
PROVIDERS: Emergency Provider Emergency Medicine; PCP Family Medicine
DX: L72.3 Sebaceous cyst (principal); E78.2 Mixed hyperlipidemia; I10 Essential (primary) hypertension
CPT/HCPCS: 10060; 99283

== ENCOUNTER → 2023-03-21 16:30 | Outpatient (BNVA) | payer MEDICARE, SELFPAY | PROVIDERS: PCP Family Medicine; Visit Provider Dermatology | DX: L72.9 Follicular cyst of the skin and subcutaneous tissue, unspecified (principal) | CPT/HCPCS: 10060; 87070; 99213 ==

== ENCOUNTER → 2023-03-23 13:07 | Outpatient (BNVA) | payer MEDICARE, SELFPAY | PROVIDERS: PCP Family Medicine; Visit Provider Dermatology | DX: L72.0 Epidermal cyst (principal) | CPT/HCPCS: 10060; 99213 ==

== ENCOUNTER → 2023-03-27 11:12 | Outpatient (BNVA) | payer MEDICARE, SELFPAY | PROVIDERS: PCP Family Medicine; Visit Provider Dermatology | DX: L72.0 Epidermal cyst (principal) | CPT/HCPCS: 10060 ==

== ENCOUNTER → 2023-04-04 10:01 | Outpatient (BNVA) | payer MEDICARE, SELFPAY | PROVIDERS: PCP Family Medicine; Visit Provider Surgery | DX: Z09 Encounter for follow-up examination after completed treatment for conditions other than malignant neoplasm (principal) | CPT/HCPCS: 99213 ==

== ENCOUNTER → 2023-07-13 11:04 | Outpatient (BNVA) | payer MEDICARE, SELFPAY | PROVIDERS: PCP Family Medicine; Visit Provider Specialist | DX: R20.0 Anesthesia of skin (principal); R20.2 Paresthesia of skin; G24.3 Spasmodic torticollis; M50.90 Cervical disc disorder, unspecified, unspecified cervical region | CPT/HCPCS: 95860; 95885; 95910; 99202 ==

== ENCOUNTER → 2023-08-02 10:15 | Outpatient (BNVA) | payer MEDICARE, SELFPAY | PROVIDERS: PCP Family Medicine; Visit Provider Surgery | DX: Z09 Encounter for follow-up examination after completed treatment for conditions other than malignant neoplasm (principal) | CPT/HCPCS: 99213 ==

== ENCOUNTER 2023-08-06 10:13 | Emergency (ER) | payer MEDICARE, SELFPAY ==
[2023-08-06 10:18] VITALS: BP 181/102; PULSE 73; RESP 16; TEMP 36.6; O2SAT 95
[2023-08-06 11:58] LABS: Basophils % 0.6 %; Eosinophils # 0.2 10^3/uL (0.0-0.8); Eosinophils % 2.6 %; Hematocrit 46.5 % (37-53); Lymphocytes # 2.7 10^3/uL (0.8-4.8); Lymphocytes % 38.4 %; Mean Corpuscular HGB Conc 33.3 g/dL (30-55); Mean Corpuscular Hemoglobin 30.5 pg (27-33); Mean Corpuscular Volume 91.5 fl (82-101); Mean Platelet Volume 9.9 fL (7.4-10.4); Monocytes # 0.8 10^3/uL (0.2-0.9); Monocytes % 10.8 %; Neutrophils # 3.31 10^3/uL (1.8-7.7); Nucleated Red Blood Cells % 0 %; Platelet Count 224 10^3/cmm (157-399); Red Blood Count 5.08 10^6/uL (3.85-5.65); Red Cell Distribution Width 12.9 % (12.1-15.1); White Blood Count 7.03 10^3/uL (3.29-11.43)
[2023-08-06 12:03] LABS: Erythrocyte Sedimentation Rate 8 mm/hr (0-10)
[2023-08-06 12:16] LABS: Lactic Sepsis W/Reflex 1.2 mmol/L (0.5-2.2)
[2023-08-06 12:17] LABS: Alanine Aminotransferase 35 U/L (0-41); Albumin Level 4.1 g/dL (3.5-5.2); Alkaline Phosphatase 88 U/L (40-130); Anion Gap 12.2 (5-19); Aspartate Amino Transferase 23 U/L (0-40); Blood Urea Nitrogen 10 mg/dL (6-20); Calcium 8.5 mg/dL (8.5-10.5); Carbon Dioxide 27 mmol/L (22-29); Chloride 109 mmol/L (98-107); Creatine Phosphokinase 87 U/L (39-308); Globulin 2.8 g/dL (1.3-4.6); Glomerular Filtration Rate 138.9 mL/min (90-130); Glucose 101 mg/dL (65-115); Osmolality Calculated 297 mOsm/kg (285-295); Potassium 4.2 mmol/L (3.5-5.1); Sodium 144 mmol/L (136-145); Total Bilirubin 0.3 mg/dL (0.15-1.2); Total Protein 6.9 g/dL (6.6-8.7)
[2023-08-06 12:18] LABS: Creatinine Clr Calc Pharmacy 160.6957
[2023-08-06 12:59] VITALS: BP 132/125; PULSE 69; RESP 18; O2SAT 97
--- NOTE | 2023-08-06 13:25 | XRR_ITS ---
PROCEDURE INFORMATION: Exam: XR Right Knee Exam date and time: 08/06/2023 1:39 PM Age: 57 years old Clinical indication: Pain; Knee; Right; Additional info: Knee pain TECHNIQUE: Imaging protocol: Radiologic exam of the right knee. Views: 3 views. COMPARISON: CR XR foot RT min 3V* [id number] 02/03/2022 1:59 PM FINDINGS: Bones/joints: Normal bony mineralization. There are moderate degenerative changes of the knee joint, predominantly involving the medial joint compartment. Soft tissues: Normal. XR/XR knee RT 3V* [id number] IMPRESSION: No acute fracture or subluxation.
--- NOTE | 2023-08-06 13:25 | W.ED.EXTPRO ---
HPI - Extremity Problem General: Chief complaint: Extremity Problem,Nontraumatic Stated complaint: leg pains Time Seen by Provider: 08/06/23 13:20 History of Present Illness: 57-year-old man history of anxiety, GERD, hypertension and hyperlipidemia who presents the emergency room with right leg pain. He says he has pain from his knee down to his calf. Says it is so severe he can barely straighten his leg. He says he did have an injury about 2 weeks ago but does not think this is related necessarily. No back pain. No abdominal pain. No chest pain. No nausea or vomiting. No altered mental status. is concerned he had a couple of tick bites in this last week, however he is already on doxycycline being treated for a tick disease. Review of Systems Narrative: Constitutional symptoms: Negative except as documented in HPI. Skin symptoms: Negative except as documented in HPI. Eye symptoms: Negative except as documented in HPI. ENMT symptoms: Negative except as documented in HPI. Respiratory symptoms: Negative except as documented in HPI. Cardiovascular symptoms: Negative except as documented in HPI. Gastrointestinal symptoms: Negative except as documented in HPI. Genitourinary symptoms: Negative except as documented in HPI. Musculoskeletal symptoms: Negative except as documented in HPI. Neurologic symptoms: Negative except as documented in HPI. Psychiatric symptoms: Negative except as documented in HPI. Endocrine symptoms: Negative except as documented in HPI. [facility] ED PFSH: Medical History Acute viral syndrome Left shoulder pain Left arm numbness Combined hyperlipidemia Obesity Low back pain History of myelitis Sleep apnea HTN (hypertension) GERD (gastroesophageal reflux disease) JESUS (generalized anxiety disorder) Surgical History Hx of nasal sinusotomy History of placement of ear tubes S/P foot surgery Hx of hernia repair History of cardiac radiofrequency ablation (RFA) History of cholecystectomy Family History Sister Cancer Father Cancer Diabetes Mother CAD (coronary artery disease) Diabetes Sister Diabetes Social History Smoking and tobacco/nicotine status: never used tobacco/nicotine Quit status (tobacco/nicotine): has quit using Second hand smoke exposure: No Alcohol intake: current Alcohol intake frequency: holidays/special occasions only Alcohol type: beer and hard liquor Substance/Drug Use: current Adopted: No Caregiver/support person: No Lives independently: Yes Household members: spouse Housing: House Marital status: Number of children: 2 Highest education level completed: High School Graduate service: No Current occupational status: disabled Pets and animals: Yes Leisure activites: hunting and fishing Sexually active: Yes Do you think of yourself as: Straight/Heterosexual Current gender identity: Male Fabby/Shinto: Yarsani Special fabby needs: No Agree to transfusion: Yes Physical Exam Narrative: EXAM NARRATIVE: General: Alert, no acute distress. Skin: warm and dry Head: Normocephalic Neck: Trachea midline Eye: Extraocular movements are intact. Ears, nose, mouth and throat: Oral mucosa moist Respiratory: Respirations are non-labored Musculoskeletal: limited range of motion of his right leg as he will not extend it completely and it remains in slight flexion secondary to pain. No obvious deformity. No swelling. No redness. Neurological: Alert and oriented, No focal neurological deficit observed. Psychiatric: Cooperative, appropriate mood & affect. Course Vital Signs: Vital signs: Vital Signs Temperature 97.8 F 08/06/23 10:18 Pulse Rate 69 08/06/23 12:59 Respiratory Rate 17 08/06/23 14:34 Blood Pressure 132/125 08/06/23 12:59 Pulse Oximetry 97 08/06/23 14:34 Oxygen Delivery Me thod Room Air 08/06/23 12:59 MDM - Extremity (Nontraumatic) Medical Decision Making Medical decision making: Differential diagnosis including but not limited to and based on the above HPI, review of systems and physical exam: Rule out any kind of fractures with an x-ray. DVT with a ultrasound. Electrolyte abnormalities and rhabdo with lab work. Orders placed to evaluate differential diagnosis based on the above differential, HPI and physical exam Lab Review: Laboratory results were reviewed and interpreted by myself the emergency room physician. CK is negative. White count is normal. No renal failure. No electrolyte abnormalities. Ultrasound of lower extremity shows no DVT. X-ray of the knee shows no fractures or dislocations. I reviewed the patient's medical record. Reexamination: Patient still having some pain but he has straighten his leg out. He says he feels very cold after receiving fluids. Dilaudid only helped a little bit. No increased work of breathing. No altered mental status. No focal motor deficits. Assessment and plan: Leg pain Dehydration -IV fluids, IV Dilaudid reviewed wound. Then p.o. oxycodone and Flexeril. - Discharged home - Discussed findings and plan with patient. Answered any questions. - All laboratory values were reviewed and interpreted personally by myself, the ER physician - All imaging was reviewed and interpreted personally by myself, the ER physician. - Evaluation and treatment of this problem were appropriate in the emergency setting Lab Data 08/06/23 11:48 08/06/23 11:48 Radiology Impressions Knee X-Ray 08/06/23 13:25 IMPRESSION: No acute fracture or subluxation. Venous Duplex 08/06/23 13:26 IMPRESSION: No evidence of deep vein thrombosis. Laboratory Results WBC 7.03 10^3/uL (3.29-11.43) 08/06/23 11:48 RBC 5.08 10^6/uL (3.85-5.65) 08/06/23 11:48 Hgb 15.50 g/dL (11.27-16.99) 08/06/23 11:48 Hct 46.5 % (37-53) 08/06/23 11:48 MCV 91.5 fl (82-101) 08/06/23 11:48 MCH 30.5 pg (27-33) 08/06/23 11:48 MCHC 33.3 g/dL (30-55) 08/06/23 11:48 RDW 12.9 % (12.1-15.1) 08/06/23 11:48 Plt Count 224 10^3/cmm (157-399) 08/06/23 11:48 MPV 9.9 fL (7.4-10.4) 08/06/23 11:48 Neut % (Auto) 47.0 % 08/06/23 11:48 Lymph % (Auto) 38.4 % 08/06/23 11:48 Barton % (Auto) 10.8 % 08/06/23 11:48 Eos % (Auto) 2.6 % 08/06/23 11:48 Baso % (Auto) 0.6 % 08/06/23 11:48 Neut # (Auto) 3.31 10^3/uL (1.8-7.7) 08/06/23 11:48 Lymph # (Auto) 2.7 10^3/uL (0.8-4.8) 08/06/23 11:48 Barton # (Auto) 0.8 10^3/uL (0.2-0.9) 08/06/23 11:48 Eos # (Auto) 0.2 10^3/uL (0.0-0.8) 08/06/23 11:48 Baso # (Auto) 0.0 10^3/uL (0.0-0.1) 08/06/23 11:48 Nucleated RBC % (auto) 0 % 08/06/23 11:48 Nucleated RBCs # 0.0 /100WBC 08/06/23 11:48 ESR 8 mm/hr (0-10) 08/06/23 11:48 Sodium 144 mmol/L (136-145) 08/06/23 11:48 Potassium 4.2 mmol/L (3.5-5.1) 08/06/23 11:48 Chloride 109 mmol/L (98-107) H 08/06/23 11:48 Carbon Dioxide 27 mmol/L (22-29) 08/06/23 11:48 Anion Gap 12.2 (5-19) 08/06/23 11:48 BUN 10 mg/dL (6-20) 08/06/23 11:48 Creatinine 0.6 mg/dL (0.7-1.2) L 08/06/23 11:48 GFR Calculation 138.9 mL/min (90-130) H 08/06/23 11:48 Glucose 101 mg/dL (65-115) 08/06/23 11:48 Calculated Osmolality 297 mOsm/kg (285-295) H 08/06/23 11:48 Lactic Acid 1.2 mmol/L (0.5-2.2) 08/06/23 11:48 Calcium 8.5 mg/dL (8.5-10.5) 08/06/23 11:48 Total Bilirubin 0.3 mg/dL (0.15-1.2) 08/06/23 11:48 AST 23 U/L (0-40) 08/06/23 11:48 ALT 35 U/L (0-41) 08/06/23 11:48 Alkaline Phosphatase 88 U/L (40-130) 08/06/23 11:48 Creatine Kinase 87 U/L (39-308) 08/06/23 11:48 C-Reactive Protein 3.0 mg/L (0.0-4.9) 08/06/23 11:48 Total Protein 6.9 g/dL (6.6-8.7) 08/06/23 11:48 Albumin 4.1 g/dL (3.5-5.2) 08/06/23 11:48 Globulin 2.8 g/dL (1.3-4.6) 08/06/23 11:48 All radiology interpretation(s) finalized by discharge Discharge Plan Discharge Patient Disposition: Home Clinical Impression: Leg pain Condition: Stable Prescriptions: New oxycodone 5 mg tablet 5 mg PO Q8H PRN (Reason: pain) Qty: 20 0RF cyclobenzaprine 10 mg tablet 10 mg PO Q8H Qty: 20 0RF dexamethasone 6 mg tablet 6 mg PO DAILY 5 Days Qty: 5 0RF diclofenac sodium 50 mg tablet,delayed release (DR/EC) 50 mg PO Q12H Qty: 20 0RF No Action zolpidem [Ambien] 10 mg tablet 10 mg PO .1 hs nitroglycerin [Nitrostat] 0.4 mg tablet, sublingual 0.4 mg sublingual Q5M PRN (Reason: chest pain) Qty: 25 3RF Rx Instructions: do not exceed 3 doses per episode baclofen 5 mg tablet 20 mg PO BID ezetimibe [Zetia] 10 mg tablet 10 mg PO DAILY albuterol sulfate [Ventolin HFA] 90 mcg/actuation HFA aerosol inhaler 2 puff INHALATION Q6H PRN (Reason: sob) epinephrine 0.3 mg/0.3 mL auto-injector 0.3 mg IM Q15M PRN (Reason: Allergic Reaction) Rx Instructions: for 2 doses multivitamin with iron-mineral Tablet 1 tab PO DAILY sennosides-docusate sodium [Senexon-S] 8.6-50 mg tablet 1 tab-cap PO DAILY meloxicam 15 mg tablet 15 mg PO DAILY Botox 100 unit recon soln 200 unit IM Q90D Qty: 2 0RF sucralfate 100 mg/mL suspension 10 ml PO BID 42 Days Qty: 840 0RF hydrocodone-acetaminophen 5-325 mg tablet 1 tab PO Q8H PRN (Reason: pain) 7 Days Qty: 21 0RF fluticasone propionate [Allergy Relief (fluticasone)] 50 mcg/actuation spray,suspension 2 spray INTRANASAL DAILY Qty: 48 0RF Rx Instructions: administer into each nostril buspirone 10 mg tablet 10 mg PO TID Qty: 90 3RF pantoprazole [Protonix] 40 mg tablet,delayed release (DR/EC) 40 mg PO QAM 180 Days Qty: 180 0RF diltiazem HCl [Cardizem] 30 mg tablet 30 mg PO BID PRN (Reason: palpitaions) Qty: 90 3RF hydrocodone-acetaminophen 5-325 mg tablet 1 tab PO Q6H PRN (Reason: pain) Qty: 14 0RF Discharge Orders: Discharge ED (Routine); Ordered 08/06/23 Ordered By: Zayda Valdivia Referrals: Andrés Cohn [Primary Care Provider] - Discharge Diet: Usual diet Discharge Activity: Increase activity as tolerated Patient Instructions: Opioid Safety, Pain Management Activity Restrictions/Additional Instructions: Thank you for choosing [facility] for your healthcare needs today. Please realize this is an emergency room and that we are providing you with a medical screening exam and this may not be complete and all inclusive of all the testing and or work up that you may need to determine your ailment or severity of your illness. You have been screened and evaluated and felt safe for discharge. Health conditions do change or evolve sometimes and as such it is important that you follow up with your Primary Doctor to be re checked, 3-5 days is a general good time frame for follow up. 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
--- NOTE | 2023-08-06 13:26 | USR_ITS ---
PROCEDURE INFORMATION: Exam: US Duplex Right Lower Extremity Veins, Limited Exam date and time: 08/06/2023 2:14 PM Age: 57 years old Clinical indication: Pain; Leg, lower; Right; Additional info: Right-sided calf pain and swelling. Concern for dvt TECHNIQUE: Imaging protocol: Real-time duplex ultrasound of the right extremity with 2-D meadows scale, color Doppler flow and spectral waveform analysis including responses to compression and other maneuvers (when performed) with image documentation. Limited exam was focused on the right lower extremity veins. COMPARISON: CR (LOW EXM, ) 08/06/2023 1:39 PM FINDINGS: Right deep veins: Unremarkable. The common femoral, femoral, proximal profunda femoral and popliteal veins are patent without thrombus. Normal Doppler waveforms. Normal compressibility and/or augmentation response. Superficial veins: Greater saphenous vein at the saphenofemoral junction is patent without thrombus. Soft tissues: Unremarkable. US/[place] [id number] IMPRESSION: No evidence of deep vein thrombosis.
[2023-08-06] MEDS: ketorolac 30 mg/mL INJ IVP (14:28)
[2023-08-06] MEDS: dexamethasone 10 mg/mL INJ IVP (14:28)
[2023-08-06] MEDS: sodium chloride 0.9% 1,000 ML 999 ML IV (14:29)
[2023-08-06 14:34] VITALS: RESP 17; O2SAT 97
[2023-08-06] MEDS: HYDROmorphone 1 mg/mL INJ 1 mL IVP (14:34)
[2023-08-06] MEDS: cyclobenzaprine 10 mg Tablet PO (15:30)
[2023-08-06] MEDS: oxyCODONE 5 mg IR Tab/Cap 10 MG PO (15:30)
[2023-08-06 15:54] VITALS: BP 157/93; PULSE 67; RESP 16; TEMP 36.6; O2SAT 98
== END 2023-08-06 15:55 | disposition home or self-care (01) ==
PROVIDERS: Emergency Provider Emergency Medicine; PCP Family Medicine
DX: M79.604 Pain in right leg (principal)
CPT/HCPCS: 36415; 73562; 80053; 82550; 83605; 85025; 85651; 86140; 93971; 96361; 96374; 96375; 99285; J1100; J1170; J1885; J7030

== ENCOUNTER 2023-10-05 09:48 | Day surgery (SDC) | payer MEDICARE, SELFPAY ==
[2023-10-05 10:05] VITALS: BP 166/93; PULSE 58; RESP 18; TEMP 36.5; O2SAT 97
[2023-10-05 10:06] VITALS: BMI 39.5
[2023-10-05] MEDS: sodium chloride 0.9% 1,000 ML 30 ML IV (10:14)
--- NOTE | 2023-10-05 10:15 | ANES.PREANE2 ---
Pre-Anesthetic Assessment Height/Weight: Height 1.68 m Weight 111.13 kg Temp Pulse Resp BP Pulse Ox O2 Del Method 97.7 F 58 L 18 166/93 97 Room Air 10/05/23 10:10/05/23 10:10/05/23 10:05 10/05/23 10:05 10/05/23 10:10/05/23 10:05 Preop Diagnosis: barretts esophagus Operation Date: 10/05/23 11:00 Proposed Procedures p EGD 21615, K22.70,(Not Applicable) - Jerman De Guzman MD Was Beta Lori taken within 24 hours: N/A Was Clonidine taken within 24 hours: N/A Last intake: Intake Last Liquid Date 10/04/23 Last Liquid Time 22:00 Last Solid Date 10/04/23 Last Solid Time 21:00 Social Tobacco (chew) and No alcohol Exam alert, oriented x 3, clear to auscultation bilaterally and regular rate & rhythm Airway Submandibular: within normal limits Cervical ROM: within normal limits Mallampati: Class I Dentition: full Pulmonary Asthma and Sleep Apnea CV/HEM Atrial Fibrillation (ablation 2015) and Hypertension None reported Hepatic None reported GI Gastroesophageal Reflux Disease Metabolic Hyperlipidemia and Morbid Obesity [facility] [place] Lower Back Pain Neuropsych None reported Anesthetic Plan ASA status: 3 Anesthesia: MAC Risk of > 500 ml blood loss (7ml/kg in children): No Medications/Allergies Home Medications Medication Instructions Recorded Confirmed Last Taken Type albuterol sulfate 90 mcg/actuation 2 puff inhalation Q6H PRN sob 01/16/20 10/03/23 10/03/23 History aerosol inhaler (Ventolin HFA) baclofen 5 mg tablet 20 mg PO BID 01/16/20 10/03/23 10/03/23 History epinephrine 0.3 mg/0.3 mL 0.3 mg IM Q15M PRN Allergic 01/16/20 10/03/23 Unknown History injection, auto-injector Reaction ezetimibe 10 mg tablet (Zetia) 10 mg PO DAILY 01/16/20 10/03/23 10/03/23 History multivitamin with iron-mineral 1 tab PO DAILY 01/16/20 10/03/23 10/03/23 History zolpidem 10 mg tablet (Ambien) 10 mg PO .1 hs 11/10/03/23 10/03/23 History meloxicam 15 mg tablet 15 mg PO DAILY 05/06/21 10/03/23 10/03/23 History nitroglycerin 0.4 mg sublingual 0.4 mg sublingual Q5M PRN chest 08/30/21 10/03/23 10/03/23 Rx tablet (Nitrostat) pain #25 tabs sennosides 8.6 mg-docusate sodium 1 tab-cap PO DAILY 08/30/21 10/03/23 10/03/23 History 50 mg tablet (Senexon-S) hydrocodone 5 mg-acetaminophen 325 1 tab PO Q8H PRN pain 7 days #21 01/10/22 10/03/23 10/03/23 Rx mg tablet tabs fluticasone propionate 50 2 spray intranasal DAILY #48 grams 04/21/22 10/03/23 10/03/23 Rx mcg/actuation nasal spray,suspension (Allergy Relief (fluticasone)) sucralfate 100 mg/mL oral 10 ml PO BID 6 weeks #840 mL 02/20/23 10/03/23 10/03/23 Rx suspension pantoprazole 40 mg tablet,delayed 40 mg PO QAM 6 months #180 tabs 05/17/23 10/03/23 10/03/23 Rx release (Protonix) diltiazem HCl 30 mg tablet 30 mg PO BID PRN palpitaions #90 06/19/23 10/03/23 10/03/23 Rx (Cardizem) tabs cyclobenzaprine 10 mg tablet 10 mg PO Q8H #20 tabs 08/06/23 10/03/23 10/03/23 Rx diclofenac sodium 50 mg 50 mg PO Q12H #20 tabs 08/06/23 10/03/23 10/03/23 Rx tablet,delayed release losartan 50 mg tablet 50 mg PO DAILY #90 tabs 08/09/23 10/03/23 10/03/23 Rx buspirone 10 mg tablet 10 mg PO BID 10/03/23 10/03/23 10/03/23 History Allergies Allergy/AdvReac Type Severity Reaction Status Date / Time insect venom Allergy Severe ALGY-Anaphy Verified 10/03/23 13:01 laxis mirtazapine Allergy Intermediate ITCHING Verified 10/03/23 13:01 gabapentin Allergy UNKNOWN Verified 10/03/23 13:01 alphagal Allergy upset GI Uncoded 10/03/23 13:01 Current Medications Generic Name Dose Route Start Last Admin Trade Name Kendall PRN Reason Stop Dose Admin Sodium Chloride 1,000 mls @ 30 mls/hr 10/05/23 10:00 10/05/23 10:14 Sodium Chloride 0.9% IV 10/06/23 09:59 30 mls/hr .Q24H MARGE Administration PFSH Anesthesia Medical History Acute viral syndrome Left shoulder pain Left arm numbness Combined hyperlipidemia Obesity Low back pain History of myelitis Sleep apnea HTN (hypertension) GERD (gastroesophageal reflux disease) JESUS (generalized anxiety disorder) Surgical History Hx of nasal sinusotomy History of placement of ear tubes S/P foot surgery Hx of hernia repair History of cardiac radiofrequency ablation (RFA) History of cholecystectomy Family History Sister Cancer Father Cancer Diabetes Mother CAD (coronary artery disease) Diabetes Sister Diabetes Social History Smoking and tobacco/nicotine status: never used tobacco/nicotine Quit status (tobacco/nicotine): has quit using Second hand smoke exposure: No Alcohol intake: current Alcohol intake frequency: holidays/special occasions only Alcohol type: beer and hard liquor Substance/Drug Use: current Adopted: No Caregiver/support person: No Lives independently: Yes Household members: spouse Housing: House Marital status: Number of children: 2 Highest education level completed: High School Graduate service: No Current occupational status: disabled Pets and animals: Yes Leisure activites: hunting and fishing Sexually active: Yes Do you think of yourself as: Straight/Heterosexual Current gender identity: Male Fabby/Nondenominational: Jew Special fabby needs: No Agree to transfusion: Yes Data Anesthesia Cardiac Studies: Echocardiogram 12/16/21 Sestamibi Stress Test (Cardiology) 09/02/21 Cardiac Event Monitor 11/18/20
--- NOTE | 2023-10-05 10:22 | P.HP_ITS ---
Same Day Surgery H&P Indication for Procedure/HPI DATE OF PROCEDURE: October 05, 2023 CHIEF COMPLAINT/INDICATIONFOR SURGICAL PROCEDURE: history of barrets PREOP DIAGNOSIS: barretts esophagus PLANNED PROCEDURE: Operation Date: 10/05/23 11:00 Proposed Procedures p EGD 25248, K22.70,(Not Applicable) - Jerman De Guzman MD Medications/Allergies* Home Medications Medication Instructions Recorded Confirmed Type albuterol sulfate 90 mcg/actuation 2 puff inhalation Q6H PRN sob 01/16/20 10/03/23 History aerosol inhaler (Ventolin HFA) baclofen 5 mg tablet 20 mg PO BID 01/16/20 10/03/23 History epinephrine 0.3 mg/0.3 mL 0.3 mg IM Q15M PRN Allergic 01/16/20 10/03/23 History injection, auto-injector Reaction ezetimibe 10 mg tablet (Zetia) 10 mg PO DAILY 01/16/20 10/03/23 History multivitamin with iron-mineral 1 tab PO DAILY 01/16/20 10/03/23 History zolpidem 10 mg tablet (Ambien) 10 mg PO .1 hs 02/06/20 10/03/23 History meloxicam 15 mg tablet 15 mg PO DAILY 05/06/21 10/03/23 History sennosides 8.6 mg-docusate sodium 1 tab-cap PO DAILY 08/30/21 10/03/23 History 50 mg tablet (Senexon-S) buspirone 10 mg tablet 10 mg PO BID 10/03/23 10/03/23 History Allergies/Adverse Reactions Allergy/AdvReac Type Severity Reaction Status Date / Time insect venom Allergy Severe ALGY-Anaphy Verified 10/03/23 13:01 laxis mirtazapine Allergy Intermediate ITCHING Verified 10/03/23 13:01 gabapentin Allergy UNKNOWN Verified 10/03/23 13:01 alphagal Allergy upset GI Uncoded 10/03/23 13:01 Current Medications: Generic Name Dose Route Start Last Admin Trade Name Freq PRN Reason Stop Dose Admin Sodium Chloride 1,000 mls @ 30 mls/hr 10/05/23 10:00 10/05/23 10:14 Sodium Chloride 0.9% IV 10/06/23 09:59 30 mls/hr .Q24H MARGE Administration Pertinent History/Comorbid Conditions* Medical History (Updated 08/14/23 @ 00:00 by HERMINIO Vivas) Acute viral syndrome Left shoulder pain Left arm numbness Combined hyperlipidemia Obesity Low back pain History of myelitis Sleep apnea HTN (hypertension) GERD (gastroesophageal reflux disease) JESUS (generalized anxiety disorder) Surgical History (Updated 03/04/22 @ 11:14 by Unruly Lee MD) Hx of nasal sinusotomy History of placement of ear tubes S/P foot surgery Hx of hernia repair History of cardiac radiofrequency ablation (RFA) History of cholecystectomy Family History (Updated 11/17/20 @ 13:14 by Charla Grewal LPN) Diabetes Father Mother Sister CAD (coronary artery disease) Mother Cancer Sister Father Social History Smoking and tobacco/nicotine status: never used tobacco/nicotine Quit status (tobacco/nicotine): has quit using Second hand smoke exposure: No Alcohol intake: current Alcohol intake frequency: holidays/special occasions only Alcohol type: beer and hard liquor Substance/Drug Use: current Adopted: No Caregiver/support person: No Lives independently: Yes Household members: spouse Housing: House Marital status: Number of children: 2 Highest education level completed: High School Graduate service: No Current occupational status: disabled Pets and animals: Yes Leisure activites: hunting and fishing Sexually active: Yes Do you think of yourself as: Straight/Heterosexual Current gender identity: Male Fabby/Uatsdin: Nondenominational Special fabby needs: No Agree to transfusion: Yes Pertinent Exam Findings alert, oriented x 3, clear to auscultation bilaterally and regular rate & rhythm Recommendations Surgery/Procedure today Coding Level of Care Code Acute Code for Skipg Fwd
[2023-10-05 10:48] VITALS: BP 137/77; PULSE 68; RESP 16; TEMP 36.6; O2SAT 96
[2023-10-05 11:01] VITALS: BP 115/83; PULSE 59; RESP 18; O2SAT 96
[2023-10-05 11:19] VITALS: BP 135/83; PULSE 54; RESP 18; O2SAT 97
--- NOTE | 2023-10-05 11:20 | ANE.PACU2 ---
Inpatient post-anesthesia follow up: Airway intact: Yes Vital signs: Temperature 98 F Pulse Rate 54 Respiratory Rate 18 Blood Pressure 135/83 Pulse Oximetry 97 Oxygen Delivery Me thod Room Air Oxygen Flow Rate 4 Fraction of Inspir ed Oxygen Hydration adequate: Yes Nausea and vomiting: No Pain level: 1 Mental status: Baseline
== END 2023-10-05 11:20 | disposition home or self-care (01) ==
PROVIDERS: PCP Family Medicine; Visit Provider Surgery
PROC: 0DJ08ZZ Inspection of Upper Intestinal Tract, Via Natural or Artificial Opening Endoscopic (ICD-10-PCS; CPT 43235; principal; 2023-10-05 11:00)
DX: K22.70 Barrett's esophagus without dysplasia (principal); K29.50 Unspecified chronic gastritis without bleeding; K21.00 Gastro-esophageal reflux disease with esophagitis, without bleeding; F17.220 Nicotine dependence, chewing tobacco, uncomplicated; I48.91 Unspecified atrial fibrillation; I10 Essential (primary) hypertension; E78.5 Hyperlipidemia, unspecified; E66.01 Morbid (severe) obesity due to excess calories; Z68.39 Body mass index [BMI] 39.0-39.9, adult; F41.1 Generalized anxiety disorder
CPT/HCPCS: 43239; 88305; 88342; J2704; J7030

== ENCOUNTER → 2023-11-08 07:58 | Outpatient (BNVA) | payer MEDICARE, SELFPAY | PROVIDERS: PCP Family Medicine; Visit Provider Podiatrist Foot & Ankle Surgery | DX: M79.672 Pain in left foot (principal); M19.072 Primary osteoarthritis, left ankle and foot; M19.172 Post-traumatic osteoarthritis, left ankle and foot; Z09 Encounter for follow-up examination after completed treatment for conditions other than malignant neoplasm | CPT/HCPCS: 73630; 99213 ==

== ENCOUNTER → 2023-11-16 08:51 | Outpatient (BNVA) | payer MEDICARE, SELFPAY | PROVIDERS: PCP Family Medicine; Visit Provider Nurse Practitioner Family | DX: D48.5 Neoplasm of uncertain behavior of skin (principal); L72.0 Epidermal cyst; L91.8 Other hypertrophic disorders of the skin; D17.22 Benign lipomatous neoplasm of skin and subcutaneous tissue of left arm; L57.0 Actinic keratosis; L57.8 Other skin changes due to chronic exposure to nonionizing radiation | CPT/HCPCS: 10060; 11102; 17000; 17110; 99213 ==

== ENCOUNTER → 2023-11-29 14:48 | Outpatient (BNVA) | payer MEDICARE, SELFPAY | PROVIDERS: PCP Family Medicine; Visit Provider Dermatology | DX: D03.59 Melanoma in situ of other part of trunk (principal) | CPT/HCPCS: 11603; 13101 ==

== ENCOUNTER 2023-12-24 09:47 | Emergency (ER) | payer MEDICARE, SELFPAY ==
[2023-12-24] VITALS (11 sets, daily range): BP systolic 115–152; BP diastolic 66–103; PULSE 47–70; RESP 3–21; TEMP 36.8; O2SAT 92–98; BMI 41.9
--- NOTE | 2023-12-24 09:53 | XRR_ITS ---
PROCEDURE INFORMATION: Exam: XR Chest Exam date and time: 12/24/2023 10:26 AM Age: 58 years old Clinical indication: Chest pressure; Prior surgery; Surgery date: 6+ months; Surgery type: Cardiac ablation; Patient HX: PT C/O left side chest pain since yesterday, PT states pain/numbness travels down left arm. PT has HX a-fib. PT rates chest pain 08/27. PT states he has taken all home meds. PT C/O left side neck pain and into back. TECHNIQUE: Imaging protocol: Radiologic exam of the chest. Views: 1 view. Total images: 658 COMPARISON: MR cervical spin wo con* [id number] 05/26/2022 10:01 AM FINDINGS: Lungs: Unremarkable. No consolidation. Pleural spaces: Unremarkable. No pleural effusion. No pneumothorax. Heart/Mediastinum: Unremarkable. No cardiomegaly. Vasculature: Mild atherosclerotic disease burden is evident. Bones/joints: Spinal fusion hardware noted. XR/XR chest 1V portable [id number] IMPRESSION: No acute cardiopulmonary process.
--- NOTE | 2023-12-24 09:53 | ECG_ITS ---
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 Measurements Intervals [place] Rate: 55 P: 62 NV: 193 QRS: -69 QRSD: 125 T: 10 QT: 403 QTc: 387 Interpretive Statements SINUS BRADYCARDIA RIGHT BUNDLE BRANCH BLOCK [120+ ms QRS DURATION, UPRIGHT V1, 40+ ms S IN I/aVL/V4/V5/V6] LEFT ANTERIOR FASCICULAR BLOCK [QRS AXIS <= -45, QR IN I, RS IN II] POSSIBLE SEPTAL MYOCARDIAL INFARCTION , PROBABLY OLD [30 ms Q WAVE IN V1/V2] No previous ECG available for comparison Electronically Signed On 12-24-2023 22:37:53 CDT by Judah Leija M.D. [id number]
--- NOTE | 2023-12-24 10:08 | W.ED.CHESTPA ---
HPI - Chest Pain General: Chief Complaint: Chest Pain Stated Complaint: CP Time Seen by Provider: 12/24/23 09:53 History of Present Illness: He presents to the ER with left-sided chest pain that goes down to his arm and up into his neck. Patient rates his pain a 6 out of 10 it is worse when he moves all his extremities and neck. Thinks may be muscle spasm however he does have a cardiac history with history of A-fib and ablation. Patient rates his pain a 6 out of 10 currently. Patient [place] any nausea vomiting diaphoresis or shortness of breath. Related Data Home Medications Medication Instructions Recorded Confirmed albuterol sulfate 90 mcg/actuation 2 puff inhalation Q6H PRN sob 01/16/20 11/08/23 aerosol inhaler (Ventolin HFA) baclofen 5 mg tablet 20 mg PO BID 01/16/20 11/08/23 epinephrine 0.3 mg/0.3 mL 0.3 mg IM Q15M PRN Allergic 01/16/20 11/08/23 injection, auto-injector Reaction ezetimibe 10 mg tablet (Zetia) 10 mg PO DAILY 01/16/20 11/08/23 multivitamin with iron-mineral 1 tab PO DAILY 01/16/20 11/08/23 zolpidem 10 mg tablet (Ambien) 10 mg PO .1 hs 02/06/20 11/08/23 meloxicam 15 mg tablet 15 mg PO DAILY 05/06/21 11/08/23 buspirone 10 mg tablet 10 mg PO BID 10/03/23 11/08/23 levocetirizine 5 mg tablet mg PO ONCE 11/08/23 11/08/23 magnesium glycinate mg PO .1PO daily 11/08/23 11/08/23 turmeric 400 mg capsule mg PO .1POD 11/08/23 11/08/23 Previous Rx's Medication Instructions Recorded nitroglycerin 0.4 mg sublingual 0.4 mg sublingual Q5M PRN chest 08/30/21 tablet (Nitrostat) pain #25 tabs hydrocodone 5 mg-acetaminophen 325 1 tab PO Q8H PRN pain 7 days #21 01/10/22 mg tablet tabs fluticasone propionate 50 2 spray intranasal DAILY #48 grams 04/21/22 mcg/actuation nasal spray,suspension (Allergy Relief (fluticasone)) sucralfate 100 mg/mL oral 10 ml PO BID 6 weeks #840 mL 02/20/23 suspension diltiazem HCl 30 mg tablet 30 mg PO BID PRN palpitaions #90 06/19/23 (Cardizem) tabs cyclobenzaprine 10 mg tablet 10 mg PO Q8H #20 tabs 08/06/23 losartan 50 mg tablet 50 mg PO DAILY #90 tabs 08/09/23 pantoprazole 40 mg tablet,delayed 40 mg PO BID #60 tabs 10/05/23 release cyclobenzaprine 5 mg tablet 5 mg PO TID PRN muscle spasm #14 12/24/23 tabs meloxicam 7.5 mg tablet 7.5 mg PO .Twice daily #14 tabs 12/24/23 Allergies Allergy/AdvReac Type Severity Reaction Status Date / Time insect venom Allergy Severe ALGY-Anaphy Verified 11/08/23 08:45 laxis mirtazapine Allergy Intermediate ITCHING Verified 11/08/23 08:45 gabapentin Allergy UNKNOWN Verified 11/08/23 08:45 alphagal Allergy upset GI Uncoded 11/08/23 08:45 Review of Systems General: Reports: 10 or more systems reviewed and unremarkable except in HPI and below PFSH ED PFSH: Medical History Acute viral syndrome Left shoulder pain Left arm numbness Combined hyperlipidemia Obesity Low back pain History of myelitis Sleep apnea HTN (hypertension) GERD (gastroesophageal reflux disease) JESUS (generalized anxiety disorder) Surgical History Hx of nasal sinusotomy History of placement of ear tubes S/P foot surgery Hx of hernia repair History of cardiac radiofrequency ablation (RFA) History of cholecystectomy Family History Sister Cancer Father Cancer Diabetes Mother CAD (coronary artery disease) Diabetes Sister Diabetes Social History Smoking and tobacco/nicotine status: never used tobacco/nicotine Quit status (tobacco/nicotine): has quit using Second hand smoke exposure: No Alcohol intake: current Alcohol intake frequency: holidays/special occasions only Alcohol type: beer and hard liquor Substance/Drug Use: current Adopted: No Caregiver/support person: No Lives independently: Yes Household members: spouse Housing: House Marital status: Number of children: 2 Highest education level completed: High School Graduate service: No Current occupational status: disabled Pets and animals: Yes Leisure activites: hunting and fishing Sexually active: Yes Do you think of yourself as: Straight/Heterosexual Current gender identity: Male Fabby/Jainism: Rastafari Special fabby needs: No Agree to transfusion: Yes Physical Exam Const: COMMON NORMALS: no acute distress, average body habitus, patient oriented x3, no limitations, healthy appearing, alert and well nourished HENMT: COMMON NORMALS: normocephalic, atraumatic, hearing grossly normal bilaterally, external ears normal, Normal external nose present and moist oral mucous membranes HEAD & SCALP: normocephalic and atraumatic NOSE: Normal external nose present EXTERNAL EAR: Yes external ears normal Eye: COMMON NORMALS: Equal, round and reactive pupils present, EOMs intact bilaterally, conjunctivae normal and no scleral icterus CONJUNCTIVA: Yes conjunctivae normal PUPIL: Yes Equal, round and reactive pupils present Neck/C-Spine: COMMON NORMALS: full ROM, no lymphadenopathy, supple, no meningeal signs, no JVD and Thyroid normal THYROID: Thyroid normal Chest: COMMONS NORMALS: normal inspection of the chest; negative for normal palpation of entire chest wall (Tenderness to palpation over left anterior chest wall reproduces pain) Resp: COMMON NORMALS: normal respiratory effort, No retractions, No use of accessory muscles and clear to auscultation bilaterally AUSCULTATION: clear to auscultation bilaterally Cardio: COMMON NORMALS: no JVD, regular rate, regular rhythm, S1 normal heart sound present, S2 normal heart sound present, No gallops present (Cardio), No clicks present (Cardio), No murmurs present (Cardio) and No rub (Cardio) RATE: regular rate RHYTHM: regular rhythm HEART SOUNDS: S1 normal heart sound present and S2 normal heart sound present GI: COMMON NORMALS: Normal to inspection, nondistended, normoactive bowel sounds present, Soft to palpation, non-tender, No hepatosplenomegaly present and no masses PALPATION: Yes Soft to palpation and Yes No hepatosplenomegaly present Neuro: COMMON NORMALS: patient oriented x3 SENSORIUM/ORIENTATION: Yes alert MENINGEAL SIGNS: Yes no meningeal signs Course Vital Signs: Vital signs: Vital Signs Temperature 98.2 F 12/24/23 09:52 Pulse Rate 49 L 12/24/23 13:00 Respiratory Rate 10 L 12/24/23 13:00 Blood Pressure 115/66 12/24/23 13:00 Pulse Oximetry 93 12/24/23 13:00 Oxygen Delivery Me thod Room Air 12/24/23 09:52 MDM - Chest Pain Medical Decision Making Initial troponin was 9, 2-hour troponin was 7.7 for negative delta of 1.2, lab work other than that unremarkable, chest x-ray no acute process, patient will be discharged home to follow-up with his PCP. Probably more musculoskeletal. Differential Diagnosis Unlikely acute massive pulmonary embolism, acute respiratory failure, acute myocardial infarction, cardiac arrest or sudden cardiac Medical Records I reviewed the patient's medical records. Lab Data 12/24/23 10:09 12/24/23 10:09 Radiology Impressions Chest X-Ray 12/24/23 09:53 IMPRESSION: No acute cardiopulmonary process. Laboratory Results WBC 7.48 10^3/uL (3.29-11.43) 12/24/23 10:09 RBC 5.17 10^6/uL (3.85-5.65) 12/24/23 10:09 Hgb 15.70 g/dL (11.27-16.99) 12/24/23 10:09 Hct 47.1 % (37-53) 12/24/23 10:09 MCV 91.1 fl (82-101) 12/24/23 10:09 MCH 30.4 pg (27-33) 12/24/23 10:09 MCHC 33.3 g/dL (30-55) 12/24/23 10:09 RDW 12.5 % (12.1-15.1) 12/24/23 10:09 Plt Count 196 10^3/cmm (157-399) 12/24/23 10:09 MPV 10.1 fL (7.4-10.4) 12/24/23 10:09 Neut % (Auto) 46.8 % 12/24/23 10:09 Lymph % (Auto) 37.7 % 12/24/23 10:09 Mclennan % (Auto) 10.6 % 12/24/23 10:09 Eos % (Auto) 4.1 % 12/24/23 10:09 Baso % (Auto) 0.4 % 12/24/23 10:09 Neut # (Auto) 3.50 10^3/uL (1.8-7.7) 12/24/23 10:09 Lymph # (Auto) 2.8 10^3/uL (0.8-4.8) 12/24/23 10:09 Mclennan # (Auto) 0.8 10^3/uL (0.2-0.9) 12/24/23 10:09 Eos # (Auto) 0.3 10^3/uL (0.0-0.8) 12/24/23 10:09 Baso # (Auto) 0.0 10^3/uL (0.0-0.1) 12/24/23 10:09 Nucleated RBC % (auto) 0 % 12/24/23 10:09 Nucleated RBCs # 0.0 /100WBC 12/24/23 10:09 PT 12.30 SECONDS (12.1-14.9) 12/24/23 10:09 INR 0.89 (0.8-1.2) 12/24/23 10:09 Sodium 140 mmol/L (136-145) 12/24/23 10:09 Potassium 4.5 mmol/L (3.5-5.1) 12/24/23 10:09 Chloride 105 mmol/L (98-107) 12/24/23 10:09 Carbon Dioxide 27 mmol/L (22-29) 12/24/23 10:09 Anion Gap 12.5 (5-19) 12/24/23 10:09 BUN 10 mg/dL (6-20) 12/24/23 10:09 Creatinine 0.7 mg/dL (0.7-1.2) 12/24/23 10:09 GFR Calculation 115.8 mL/min (90-130) 12/24/23 10:09 Glucose 136 mg/dL (65-115) H 12/24/23 10:09 Calculated Osmolality 291 mOsm/kg (285-295) 12/24/23 10:09 Calcium 8.6 mg/dL (8.5-10.5) 12/24/23 10:09 Total Bilirubin 0.2 mg/dL (0.15-1.2) 12/24/23 10:09 AST 26 U/L (0-40) 12/24/23 10:09 ALT 40 U/L (0-41) 12/24/23 10:09 Alkaline Phosphatase 110 U/L (40-130) 12/24/23 10:09 Troponin T Baseline 9 ng/L (0-15) 12/24/23 10:09 Troponin T 120 Minute 7.78 ng/L (0-15) 12/24/23 12:34 Delta Troponin T -1.22 ABS# (0-10) L 12/24/23 12:34 Total Protein 6.2 g/dL (6.6-8.7) L 12/24/23 10:09 Albumin 4.0 g/dL (3.5-5.2) 12/24/23 10:09 Globulin 2.2 g/dL (1.3-4.6) 12/24/23 10:09 No radiology studies performed this visit Discharge Plan Discharge Patient Disposition: Home Clinical Impression: Atypical chest pain Condition: Stable Prescriptions: New meloxicam 7.5 mg tablet 7.5 mg PO .Twice daily Qty: 14 0RF cyclobenzaprine 5 mg tablet 5 mg PO TID PRN (Reason: muscle spasm) Qty: 14 0RF No Action zolpidem [Ambien] 10 mg tablet 10 mg PO .1 hs nitroglycerin [Nitrostat] 0.4 mg tablet, sublingual 0.4 mg sublingual Q5M PRN (Reason: chest pain) Qty: 25 3RF Rx Instructions: do not exceed 3 doses per episode baclofen 5 mg tablet 20 mg PO BID ezetimibe [Zetia] 10 mg tablet 10 mg PO DAILY albuterol sulfate [Ventolin HFA] 90 mcg/actuation HFA aerosol inhaler 2 puff INHALATION Q6H PRN (Reason: sob) epinephrine 0.3 mg/0.3 mL auto-injector 0.3 mg IM Q15M PRN (Reason: Allergic Reaction) Rx Instructions: for 2 doses multivitamin with iron-mineral Tablet 1 tab PO DAILY meloxicam 15 mg tablet 15 mg PO DAILY turmeric 400 mg capsule PO .1POD magnesium glycinate 100 mg magnesium capsule PO .1PO daily levocetirizine 5 mg tablet PO ONCE sucralfate 100 mg/mL suspension 10 ml PO BID 42 Days Qty: 840 0RF hydrocodone-acetaminophen 5-325 mg tablet 1 tab PO Q8H PRN (Reason: pain) 7 Days Qty: 21 0RF fluticasone propionate [Allergy Relief (fluticasone)] 50 mcg/actuation spray,suspension 2 spray INTRANASAL DAILY Qty: 48 0RF Rx Instructions: administer into each nostril diltiazem HCl [Cardizem] 30 mg tablet 30 mg PO BID PRN (Reason: palpitaions) Qty: 90 3RF losartan 50 mg tablet 50 mg PO DAILY Qty: 90 3RF cyclobenzaprine 10 mg tablet 10 mg PO Q8H Qty: 20 0RF buspirone 10 mg tablet 10 mg PO BID pantoprazole 40 mg tablet,delayed release (DR/EC) 40 mg PO BID Qty: 60 5RF Discharge Orders: Discharge ED (Routine); Ordered 12/24/23 Ordered By: Dung Gleason Referrals: Andrés Cohn [Primary Care Provider] - 1 week Patient Instructions: Chest Pain - Chest Wall Activity Restrictions/Additional Instructions: Thank you for choosing [facility] for your healthcare needs today. Please realize that you were seen in the emergency department and that we are providing you with an emergency medical screening exam and this may not be a complete and all exclusive of all testing and/or medical workup we may need to determine your element or severity of your illness. It is very important that you follow-up as instructed with your primary care provider or specialist for the additional evaluation and to discuss your medical treatment plan. You may return to the emergency department should you have concerns or if your condition changes or worsens in any way. Coding Level of Care Code ED Local Delivery Truck Driver for Lazarus Meyers
[2023-12-24 10:17] LABS: Basophils % 0.4 %; Eosinophils # 0.3 10^3/uL (0.0-0.8); Eosinophils % 4.1 %; Hematocrit 47.1 % (37-53); Lymphocytes # 2.8 10^3/uL (0.8-4.8); Lymphocytes % 37.7 %; Mean Corpuscular HGB Conc 33.3 g/dL (30-55); Mean Corpuscular Hemoglobin 30.4 pg (27-33); Mean Corpuscular Volume 91.1 fl (82-101); Mean Platelet Volume 10.1 fL (7.4-10.4); Monocytes # 0.8 10^3/uL (0.2-0.9); Monocytes % 10.6 %; Neutrophils % 46.8 %; Nucleated Red Blood Cells % 0 %; Platelet Count 196 10^3/cmm (157-399); Red Blood Count 5.17 10^6/uL (3.85-5.65); Red Cell Distribution Width 12.5 % (12.1-15.1); White Blood Count 7.48 10^3/uL (3.29-11.43)
[2023-12-24 10:27] LABS: INR 0.89 (0.8-1.2)
[2023-12-24] MEDS: aspirin 81 mg Chew Tablet 324 MG PO (10:27)
[2023-12-24] MEDS: ketorolac 30 mg/mL INJ IVP (10:27)
[2023-12-24 10:33] LABS: Troponin(5th) Baseline 9 ng/L (0-15)
[2023-12-24 10:36] LABS: Alanine Aminotransferase 40 U/L (0-41); Alkaline Phosphatase 110 U/L (40-130); Aspartate Amino Transferase 26 U/L (0-40); Blood Urea Nitrogen 10 mg/dL (6-20); Calcium 8.6 mg/dL (8.5-10.5); Carbon Dioxide 27 mmol/L (22-29); Chloride 105 mmol/L (98-107); Creatinine Clr Calc Pharmacy 139.0317; Globulin 2.2 g/dL (1.3-4.6); Glomerular Filtration Rate 115.8 mL/min (90-130); Glucose 136 mg/dL (65-115); Osmolality Calculated 291 mOsm/kg (285-295); Sodium 140 mmol/L (136-145); Total Bilirubin 0.2 mg/dL (0.15-1.2); Total Protein 6.2 g/dL (6.6-8.7)
[2023-12-24 10:38] LABS: Anion Gap 12.5 (5-19); Potassium 4.5 mmol/L (3.5-5.1)
[2023-12-24] MEDS: ondansetron 2 mg/ML SDV 2 mL 4 MG IVP (10:40)
[2023-12-24] MEDS: morphine 4 mg/mL SDV 1 mL IVP (10:41)
--- NOTE | 2023-12-24 11:53 | ECG_ITS ---
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 Measurements Intervals [place] Rate: 50 P: 67 SD: 198 QRS: -64 QRSD: 121 T: 1 QT: 393 QTc: 358 Interpretive Statements SINUS BRADYCARDIA RIGHT BUNDLE BRANCH BLOCK [120+ ms QRS DURATION, UPRIGHT V1, 40+ ms S IN I/aVL/V4/V5/V6] LEFT ANTERIOR FASCICULAR BLOCK [QRS AXIS <= -45, QR IN I, RS IN II] POSSIBLE SEPTAL MYOCARDIAL INFARCTION , PROBABLY OLD [30 ms Q WAVE IN V1/V2] No previous ECG available for comparison Electronically Signed On 12-24-2023 22:57:35 CDT by Judah Leija M.D. [email or web address] lady [email or web address] mercy [id number]
[2023-12-24] MEDS: orphenadrine 30 mg/mL Inj 2 mL 60 MG IVP (12:19)
[2023-12-24] MEDS: dexamethasone 10 mg/mL INJ IVP (12:19)
[2023-12-24 12:56] LABS: Troponin 5 2HR 7.78 ng/L (0-15)
[2023-12-24 12:58] LABS: Troponin 5 2HR Delta -1.22 ABS# (0-10)
== END 2023-12-24 13:59 | disposition home or self-care (01) ==
PROVIDERS: Emergency Provider Emergency Medicine; PCP Family Medicine
DX: R07.89 Other chest pain (principal); Z87.891 Personal history of nicotine dependence; E78.2 Mixed hyperlipidemia; I10 Essential (primary) hypertension
CPT/HCPCS: 71045; 80053; 84484; 85025; 85610; 93005; 96374; 96375; 99285; J1100; J1885; J2270; J2360; J2405

== ENCOUNTER 2024-01-12 09:07 | Day surgery (SDC) | payer MEDICARE, SELFPAY ==
[2024-01-12] VITALS (12 sets, daily range): BP systolic 110–137; BP diastolic 71–93; PULSE 59–92; RESP 12–21; TEMP 36.1–36.7; O2SAT 93–97; BMI 41.9
--- NOTE | 2024-01-12 09:56 | P.OP_ITS ---
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 Procedure done: Left subtalar joint fusion. 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 Left foot 3 views x-rays taken in clinic at today's visit shows significant joint space narrowing greater than 50% joint loss with subchondral sclerosis, enthesophytes and juxta articular erosions of the posterior, middle and anterior facet of the left subtalar joint. Well- healed fusion site with retained screw traversing tibiotalar joint. Patient has failed to respond any longer to anti-inflammatories, active modifications, bracing, orthotics in the amount of pain that he experiences daily affects his overall quality of life he would like to discuss surgical options. Recommended left subtalar joint fusion. I reviewed at length with the patient, the risks, potential complications, benefits, alternatives, expectations, and typical outcomes associated with the surgery. The risks and potential complications were explained in detail, including but not limited to infection, wound dehiscence or soft tissue complications, bleeding and hematoma, chronic edema, neuritis or nerve damage producing numbness or chronic pain, CRPS, failure to relieve pain or worsening pain, thick / painful / unsightly scar, limited motion / stiffness, malposition, delayed union, malunion, or nonunion, fracture, reaction to implants, anesthetic complications, venous thromboembolism, and deformity recurrence. I discussed the notion of no regrets with the patient as it pertains to complications and outcomes. The patient seemed to understand the nature of the proposed care and required convalescence. They asked appropriate questions, answered to their satisfaction. They are aware no guarantees can be made as to a satisfactory outcome and they understand there may be other possible unforeseen complications or outcomes not listed here that will be treated accordingly if they arise. There were no written or implied guarantees given to the patient. They gave informed consent to proceed. Scheduled for left subtalar joint fusion 01/12/2024 outpatient, general anesthetic with popliteal block, supine, operating table, C arm, Leland, 60 minutes Procedure: Under mild sedation the patient was brought to the operating room and placed onto the operating table in supine position. A timeout was performed. Anesthesia was then administered by the anesthesia service. Of note left popliteal block was performed preoperatively per anesthesia service. Well- padded pneumatic tourniquet applied to the left high calf. Left lower extremity was scrubbed, prepped and draped utilizing normal aseptic technique. Left foot and ankle were exanguinated with Esmarch bandage and tourniquet inflated to 250 mmHg. Attention was directed to the left sinus tarsi where a sinus tarsi incision was performed through skin with a #15 blade with dissection carried down through subcutaneous tissue to the extensor digitorum brevis muscle origin and the sinus tarsi which was reflected was identified and tagged to be replaced later in the procedure. Sinus tarsi was further evacuated and subtalar joint entered and with lamina informatics specialist, eburnation was appreciated with joint space loss and cartilage loss at the subtalar joint. Remaining cartilage was removed, subchondral plate penetrated and fenestrated with osteotome both superiorly and inferiorly at the subtalar joint which was then held in neutral and fixated utilizing Leland 28 7 mm screw short thread cannulated and near parallel fashion, these were advanced utilizing standard AO technique. AP of the ankle confirmed screw placement to be excellent in the talar body, lateral view showed near parallel screw fixation and calcaneal axial demonstrated excellent placement within the calcaneal body. Any voids packed with DBM provided by Leland. Incision was irrigated skin solution. Intraoperative C arm confirmed excellent placement and slight valgus position of the calcaneus. Incision was closed with extensor digitorum brevis reapproximated within the sinus tarsi with 3-0 Vicryl, deep fascia with 3-0 Vicryl, subcutaneous tissue with 4-0 Vicryl and skin with 4-0 nylon. Incision was dressed with Adaptic, sterile 4 x 4's, Kerlix and Javy wrap followed by application of a posterior splint. Tourniquet was deflated and a prompt hyperemic response is noted to the distal digits of the left foot. Patient tolerated the procedure and anesthesia well and was trans ferred to the PACU with vital signs stable and vascular status intact. Following a period of postoperative monitoring be discharged home without home care instructions and scheduled follow-up.
[2024-01-12] MEDS: sodium chloride 0.9% 1,000 ML 30 ML IV (10:01)
--- NOTE | 2024-01-12 10:47 | P.ANESASSM_ITS ---
Pre-Anesthetic Assessment Height/Weight: Height 1.68 m Weight 117.934 kg Temp Pulse Resp BP Pulse Ox O2 Del Method 97.2 F L 62 20 H 136/79 97 Room Air 01/12/24 09:30 01/12/24 10:34 01/12/24 10:34 01/12/24 10:34 01/12/24 10:34 01/12/24 10:34 Preop Diagnosis: Left subtalar joint arthritis Operation Date: 01/12/24 10:50 Proposed Procedures p Subtalar Joint Fusion(Left) - Leon Lange DPM Familial anesthetic complications: None Was Beta Lori taken within 24 hours: N/A Was Clonidine taken within 24 hours: N/A Last intake: Intake Last Liquid Date 01/11/24 Last Liquid Time 21:00 Last Solid Date 01/11/24 Last Solid Time 18:30 Social Tobacco and No alcohol Exam alert, oriented x 3, clear to auscultation bilaterally and regular rate & rhythm Airway Mallampati: Class IV Dentition: full Pulmonary Asthma and Sleep Apnea CV/HEM Atrial Fibrillation and Hypertension GI Gastroesophageal Reflux Disease Metabolic Hyperlipidemia and Morbid Obesity Neuropsych hx transverse myelitis Anesthetic Plan ASA status: 3 Anesthesia: General and Regional (specify below) Risk of > 500 ml blood loss (7ml/kg in children): No Medications/Allergies Home Medications Medication Instructions Recorded Confirmed Last Taken Type albuterol sulfate 90 mcg/actuation 2 puff inhalation Q6H PRN sob 01/16/20 01/11/24 10/04/23 History aerosol inhaler (Ventolin HFA) baclofen 5 mg tablet 20 mg PO BID 01/16/20 01/11/24 01/11/24 History epinephrine 0.3 mg/0.3 mL 0.3 mg IM Q15M PRN Allergic 01/16/20 01/11/24 Unknown History injection, auto-injector Reaction ezetimibe 10 mg tablet (Zetia) 10 mg PO DAILY 01/16/20 01/11/24 01/11/24 History multivitamin with iron-mineral 1 tab PO DAILY 01/16/20 01/11/24 10/04/23 History zolpidem 10 mg tablet (Ambien) 10 mg PO .1 hs 02/06/20 01/11/24 10/04/23 History nitroglycerin 0.4 mg sublingual 0.4 mg sublingual Q5M PRN chest 08/30/21 01/11/24 Unknown Rx tablet (Nitrostat) pain #25 tabs fluticasone propionate 50 2 spray intranasal DAILY #48 grams 04/21/22 01/11/24 10/04/23 Rx mcg/actuation nasal spray,suspension (Allergy Relief (fluticasone)) cyclobenzaprine 10 mg tablet 10 mg PO Q8H #20 tabs 08/06/23 01/11/24 01/11/24 Rx losartan 50 mg tablet 50 mg PO DAILY #90 tabs 08/09/23 01/11/24 01/11/24 Rx buspirone 10 mg tablet 10 mg PO BID 10/03/23 01/11/24 01/11/24 History pantoprazole 40 mg tablet,delayed 40 mg PO BID #60 tabs 10/05/23 01/11/24 01/11/24 Rx release levocetirizine 5 mg tablet 5 mg PO DAILY 11/08/23 01/11/24 01/11/24 History magnesium glycinate mg PO .1PO daily 11/08/23 11/08/23 Unknown History cyclobenzaprine 5 mg tablet 5 mg PO TID PRN muscle spasm #14 12/24/23 01/11/24 Unknown Rx tabs diltiazem HCl 30 mg tablet See Rx Instructions .Route 01/09/24 01/11/24 01/10/24 Rx .COMPLEX #120 tabs hydrocodone 10 mg-acetaminophen 1 tab PO Q6H PRN pain 7 days #28 01/12/24 Unknown Rx 325 mg tablet tabs ondansetron HCl 8 mg tablet 8 mg PO Q8H PRN nausea and 01/12/24 Unknown Rx vomiting 7 days #21 tabs Allergies Allergy/AdvReac Type Severity Reaction Status Date / Time insect venom Allergy Severe ALGY-Anaphy Verified 01/11/24 09:09 laxis mirtazapine Allergy Intermediate ITCHING Verified 01/11/24 09:09 gabapentin Allergy UNKNOWN Verified 01/11/24 09:09 alphagal Allergy upset GI Uncoded 01/11/24 09:09 Current Medications Generic Name Dose Route Start Last Admin Trade Name Freq PRN Reason Stop Dose Admin Sodium Chloride 1,000 mls @ 30 mls/hr 01/12/24 09:30 01/12/24 10:01 Sodium Chloride 0.9% IV 01/13/24 09:29 30 mls/hr .Q24H MARGE Administration PFSH Anesthesia Medical History Acute viral syndrome Left shoulder pain Left arm numbness Combined hyperlipidemia Obesity Low back pain History of myelitis Sleep apnea HTN (hypertension) GERD (gastroesophageal reflux disease) JESUS (generalized anxiety disorder) Surgical History Hx of nasal sinusotomy History of placement of ear tubes S/P foot surgery Hx of hernia repair History of cardiac radiofrequency ablation (RFA) History of cholecystectomy Family History Sister Cancer Father Cancer Diabetes Mother CAD (coronary artery disease) Diabetes Sister Diabetes Social History Smoking and tobacco/nicotine status: never used tobacco/nicotine Quit status (tobacco/nicotine): has quit using Second hand smoke exposure: No Alcohol intake: current Alcohol intake frequency: holidays/special occasions only Alcohol type: beer and hard liquor Substance/Drug Use: current Adopted: No Caregiver/support person: No Lives independently: Yes Household members: spouse Housing: House Marital status: Number of children: 2 Highest education level completed: High School Graduate service: No Current occupational status: disabled Pets and animals: Yes Leisure activites: hunting and fishing Sexually active: Yes Do you think of yourself as: Straight/Heterosexual Current gender identity: Male Fabby/Jehovah'S Witness: Jainism Special fabby needs: No Agree to transfusion: Yes Data Anesthesia Cardiac Studies: Echocardiogram 12/16/21 Sestamibi Stress Test (Cardiology) 09/02 Cardiac Event Monitor 11/18/20
--- NOTE | 2024-01-12 10:49 | ANES.PROC ---
Anesthesia Procedures Procedure/Date: 01/12/24 Nerve Block ^: Nerve Block 1: Main Anesthesia: general anesthesia Time Out Performed: Yes Consent: requested by attending/covering physician, from patient, from other, risks and benefits reviewed and patient agrees to proceed Nerve block location: popliteal (L) Anesthesia monitors applied: pulse oximetry, EKG and BP cuff Nerve block position: supine Anesthetic Used: ropivicaine 0.5% (30 ml) and with decadron (4 mg) Ultrasound used to: recognize landmarks Nerve Stimulator Used?: No Interscalene/Femoral BLK: 4 stimuplex 21 g needle used for position and inplane approach, visualize local anesthetic spread and no vascular puncture identified Injection: neg aspiration of heme Patient Tolerated Procedure: well Complications: none
--- NOTE | 2024-01-12 10:50 | XR_ITS ---
WS: [id number] Exam: XR foot LT 2V [id number] Date/Time of Exam: 01/12/2024 10:50 AM Reason For Exam: OR PICS LEFT SUBTALAR JOINT FUSION Intraoperative C-arm images of the LEFT hindfoot depict internal fixation of the posterior subtalar j oint with 2 orthopedic screws. Images were obtained for intraoperative purposes.
--- NOTE | 2024-01-12 10:56 | P.HPUD_ITS ---
Surgery/Procedure H&P Update DATE OF PROCEDURE: January 12, 2024 DATE H&P PERFORMED: 01/12/24 H&P UPDATE INFORMATION: I have reviewed H&P completed within last 30 days, I have examined patient prior to procedure, No changes to prior documentation and H&P is in [facility] on date indicated PREOP DIAGNOSIS: Left subtalar joint arthritis PLANNED PROCEDURE: Operation Date: 01/12/24 10:50 Proposed Procedures p Subtalar Joint Fusion(Left) - Leon Lange DPM
--- NOTE | 2024-01-12 10:57 | P.HP_ITS ---
Providers/Chief Complaint Primary Care Provider: Andrés Cohn Chief Complaint: S99.922D History of Present Illness Cal Weeks is a 58 year old male patient returns to the clinic today for increased left heel pain. Patient reports no new injury. Pain is described as it feeling like his heel is being ripped off X 3 weeks. This is also causing him to fall. When the pain is at it's worst, it is rated 10/10. He was in a brace previously to attempt avoiding surgery for a fusion. Review of Systems General: Reports: 10 or more systems reviewed and unremarkable except in HPI and below Const: Denies: fever(s) or chills Eyes: Denies: change in vision Card: Denies: chest pain or palpitations Resp: Denies: dyspnea or productive cough GI: Denies: abdominal pain, nausea or vomiting : Denies: flank pain Musc: Reports: extremity pain, joint pain, joint stiffness, limited range of motion and deformity Skin/Breast: Reports: skin tenderness; Denies: rash Neuro: Reports: difficulty walking; Denies: numbness in extremities, sensory changes or frequent falls Psych: Denies: suicidal ideation [place]/Lymph: Denies: easy bruising Medications/Allergies Home Medications Medication Instructions Recorded Confirmed Last Taken Type albuterol sulfate 90 mcg/actuation 2 puff inhalation Q6H PRN sob 01/16/20 01/11/24 10/04/23 History aerosol inhaler (Ventolin HFA) baclofen 5 mg tablet 20 mg PO BID 01/16/20 01/11/24 01/11/24 History epinephrine 0.3 mg/0.3 mL 0.3 mg IM Q15M PRN Allergic 01/16/20 01/11/24 Unknown History injection, auto-injector Reaction ezetimibe 10 mg tablet (Zetia) 10 mg PO DAILY 01/16/20 01/11/24 01/11/24 History multivitamin with iron-mineral 1 tab PO DAILY 01/16/20 01/11/24 10/04/23 History zolpidem 10 mg tablet (Ambien) 10 mg PO .1 hs 02/06/20 01/11/24 10/04/23 History nitroglycerin 0.4 mg sublingual 0.4 mg sublingual Q5M PRN chest 08/30/21 01/11/24 Unknown Rx tablet (Nitrostat) pain #25 tabs fluticasone propionate 50 2 spray intranasal DAILY #48 grams 04/21/22 01/11/24 10/04/23 Rx mcg/actuation nasal spray,suspension (Allergy Relief (fluticasone)) cyclobenzaprine 10 mg tablet 10 mg PO Q8H #20 tabs 08/06/23 01/11/24 01/11/24 Rx losartan 50 mg tablet 50 mg PO DAILY #90 tabs 08/09/23 01/11/24 01/11/24 Rx buspirone 10 mg tablet 10 mg PO BID 10/03/23 01/11/24 01/11/24 History pantoprazole 40 mg tablet,delayed 40 mg PO BID #60 tabs 10/05/23 01/11/24 01/11/24 Rx release levocetirizine 5 mg tablet 5 mg PO DAILY 11/08/23 01/11/24 01/11/24 History magnesium glycinate mg PO .1PO daily 11/08/23 11/08/23 Unknown History cyclobenzaprine 5 mg tablet 5 mg PO TID PRN muscle spasm #14 12/24/23 01/11/24 Unknown Rx tabs diltiazem HCl 30 mg tablet See Rx Instructions .Route 01/09/24 01/11/24 01/10/24 Rx .COMPLEX #120 tabs hydrocodone 10 mg-acetaminophen 1 tab PO Q6H PRN pain 7 days #28 01/12/24 Unknown Rx 325 mg tablet tabs ondansetron HCl 8 mg tablet 8 mg PO Q8H PRN nausea and 01/12/24 Unknown Rx vomiting 7 days #21 tabs Allergies Allergy/AdvReac Type Severity Reaction Status Date / Time insect venom Allergy Severe ALGY-Anaphy Verified 01/11/24 09:09 laxis mirtazapine Allergy Intermediate ITCHING Verified 01/11/24 09:09 gabapentin Allergy UNKNOWN Verified 01/11/24 09:09 alphagal Allergy upset GI Uncoded 01/11/24 09:09 PFSH PFSH: Medical History Acute viral syndrome Left shoulder pain Left arm numbness Combined hyperlipidemia Obesity Low back pain History of myelitis Sleep apnea HTN (hypertension) GERD (gastroesophageal reflux disease) JESUS (generalized anxiety disorder) Surgical History Hx of nasal sinusotomy History of placement of ear tubes S/P foot surgery Hx of hernia repair History of cardiac radiofrequency ablation (RFA) History of cholecystectomy Family History Sister Cancer Father Cancer Diabetes Mother CAD (coronary artery disease) Diabetes Sister Diabetes Social History Smoking and tobacco/nicotine status: never used tobacco/nicotine Quit status (tobacco/nicotine): has quit using Second hand smoke exposure: No Alcohol intake: current Alcohol intake frequency: holidays/special occasions only Alcohol type: beer and hard liquor Substance/Drug Use: current Adopted: No Caregiver/support person: No Lives independently: Yes Household members: spouse Housing: House Marital status: Number of children: 2 Highest education level completed: High School Graduate service: No Current occupational status: disabled Pets and animals: Yes Leisure activites: hunting and fishing Sexually active: Yes Do you think of yourself as: Straight/Heterosexual Current gender identity: Male Fabby/Spiritism: Oriental Orthodox Special fabby needs: No Agree to transfusion: Yes Dietary Habits: Caffeine: Yes Caffeine intake frequency: coffee Number of coffee servings: 1 Vital Signs Vitals Signs: Last Vital Signs Temp 97.2 F L 01/12/24 09:30 Pulse 62 01/12/24 10:34 Resp 20 H 01/12/24 10:34 BP 136/79 01/12/24 10:34 Pulse Ox 97 01/12/24 10:34 O2 Del Method Room Air 01/12/24 10:34 Weight: Weight last 48 hrs Weight 260 lb Physical Exam Narrative: EXAM NARRATIVE: GENERAL: Patient is alert and oriented ?3 and in no acute distress. The following is a focused left lower extremity exam. VASCULAR: Dorsalis pedis and posterior tibial arteries palpable +2. Capillary refill time less than 3 seconds to the distal hallux bilaterally. Calf is supple and nontender proximally and distally. NEUROLOGICAL: Protective sensation intact to light touch. DERMATOLOGICAL: Well-healed cicatrix to the right lower extremity, nylon stitch still visible. MUSCULOSKELETAL: Pain to palpation left foot sinus tarsi. Pain with range of motion along with crepitus left subtalar joint. No motion at left ankle secondary to arthrodesis. No significant valgus or varus deformity of the right foot. CARDIOVASCULAR: S1, S2, normal rate, normal rhythm. Dorsalis pedis and posterior tibial arteries palpable. LUNGS: Clear to auscltation, no use of acessory muscles, no crackles or wheezes. 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 Left foot 3 views x-rays taken in clinic at today's visit shows significant joint space narrowing greater than 50% joint loss with subchondral sclerosis, enthesophytes and juxta articular erosions of the posterior, middle and anterior facet of the left subtalar joint. Well- healed fusion site with retained screw traversing tibiotalar joint. Patient has failed to respond any longer to anti-inflammatories, active modifications, bracing, orthotics in the amount of pain that he experiences daily affects his overall quality of life he would like to discuss surgical options. Recommended left subtalar joint fusion. I reviewed at length with the patient, the risks, potential complications, benefits, alternatives, expectations, and typical outcomes associated with the surgery. The risks and potential complications were explained in detail, including but not limited to infection, wound dehiscence or soft tissue complications, bleeding and hematoma, chronic edema, neuritis or nerve damage producing numbness or chronic pain, CRPS, failure to relieve pain or worsening pain, thick / painful / unsightly scar, limited motion / stiffness, malposition, delayed union, malunion, or nonunion, fracture, reaction to implants, anesthetic complications, venous thromboembolism, and deformity recurrence. I discussed the notion of no regrets with the patient as it pertains to complications and outcomes. The patient seemed to understand the nature of the proposed care and required convalescence. They asked appropriate questions, answered to their satisfaction. They are aware no guarantees can be made as to a satisfactory outcome and they understand there may be other possible unforeseen complications or outcomes not listed here that will be treated accordingly if they arise. There were no written or implied guarantees given to the patient. They gave informed consent to proceed. Scheduled for left subtalar joint fusion 01/12/2024 outpatient, general anesthetic with popliteal block, supine, operating table, C arm, [place], 60 minutes Coding Level of Care Code Acute Code for Chg Fwd Diagnoses Arthritis of subtalar joint M19.079
[2024-01-12] MEDS: ceFAZolin 2,000 mg SDV 2000 MG IVP (11:09)
--- NOTE | 2024-01-12 12:21 | P.BOP_ITS ---
Date of Procedure: 06/02/23 Surgeon: Leon Lange DPM [employer] Control(s): Willie Fu JAMA Procedure(s) performed: Left subtalar joint fusion. Findings of the procedure(s): None Estimated blood loss: 5 mL Specimen(s) removed: None Post-operative diagnosis: Posttraumatic arthritis left subtalar joint 48-minute tourniquet time popliteal block was performed preoperatively.
--- NOTE | 2024-01-12 13:35 | ANE.PACU2 ---
Inpatient post-anesthesia follow up: Airway intact: Yes Vital signs: Temperature 97.0 F Pulse Rate 61 Respiratory Rate 17 Blood Pressure 127/72 Pulse Oximetry 95 Oxygen Delivery Me thod Room Air Oxygen Flow Rate Fraction of Inspir ed Oxygen Hydration adequate: Yes Nausea and vomiting: No Pain level: 1 Mental status: Baseline
== END 2024-01-12 13:35 | disposition home or self-care (01) ==
PROVIDERS: PCP Family Medicine; Visit Provider Podiatrist Foot & Ankle Surgery
PROC: (CPT 28725; principal; 2024-01-12 10:40)
DX: M19.072 Primary osteoarthritis, left ankle and foot (principal); Z91.81 History of falling; E66.01 Morbid (severe) obesity due to excess calories; Z68.41 Body mass index [BMI] 40.0-44.9, adult; G47.30 Sleep apnea, unspecified; I10 Essential (primary) hypertension; K21.9 Gastro-esophageal reflux disease without esophagitis; F41.1 Generalized anxiety disorder; E78.5 Hyperlipidemia, unspecified
CPT/HCPCS: 28725; 73620; 76000; C1713; C1762; J0690; J1100; J1200; J2250; J2405; J2795; J3010; J7030

== ENCOUNTER → 2024-01-25 15:00 | Outpatient (BNVA) | payer MEDICARE, SELFPAY | PROVIDERS: PCP Family Medicine; Visit Provider Podiatrist Foot & Ankle Surgery | DX: Z98.890 Other specified postprocedural states; M19.072 Primary osteoarthritis, left ankle and foot | CPT/HCPCS: 73630; 99024 ==

== ENCOUNTER → 2024-02-22 13:55 | Outpatient (BNVA) | payer MEDICARE, SELFPAY | PROVIDERS: PCP Family Medicine; Visit Provider Podiatrist Foot & Ankle Surgery | DX: Z98.890 Other specified postprocedural states (principal); M19.072 Primary osteoarthritis, left ankle and foot | CPT/HCPCS: 73630; 99024 ==

== ENCOUNTER → 2024-02-26 12:46 | Outpatient (BNVA) | payer MEDICARE, SELFPAY | PROVIDERS: PCP Family Medicine; Visit Provider Internal Medicine | DX: I48.0 Paroxysmal atrial fibrillation (principal); R00.2 Palpitations; I10 Essential (primary) hypertension; E66.9 Obesity, unspecified; G47.33 Obstructive sleep apnea (adult) (pediatric); F17.220 Nicotine dependence, chewing tobacco, uncomplicated; Z68.41 Body mass index [BMI] 40.0-44.9, adult | CPT/HCPCS: 99214 ==

== ENCOUNTER 2024-03-05 11:01 | Emergency (ER) | payer MEDICARE, SELFPAY ==
[2024-03-05 11:23] VITALS: BP 126/85; PULSE 99; RESP 18; TEMP 36.9; O2SAT 96; BMI 41.9
[2024-03-05 11:30] VITALS: BP 126/85; PULSE 99; RESP 18; TEMP 36.9; O2SAT 96
--- NOTE | 2024-03-05 11:38 | ED_ITS ---
HPI - Extremity Problem 2 General: Chief complaint: Extremity Problem,Nontraumatic Stated complaint: send by Dr. Lange Time Seen by Provider: 03/05/24 11:10 Source: patient and family Mode of arrival: wheelchair Limitations: no limitations History of Present Illness: Patient is a 58-year-old male who presents to ED today with a complaint of pain to his left lower extremity. Patient underwent left subtalar joint effusion by Dr. Lange towards the end of December. He has been following up with Dr. Lange since the surgery. He last saw him approximately a week and a half ago. Patient has been compliant with all of his postop instructions. He reportedly began noticing some redness to the anterior lower leg today. states she reached out to Dr. Lange who recommended coming to the emergency department for DVT rule out and possibly some blood work. Patient has had pain since the surgery. He does have a small area of wound dehiscence to his surgical incision that Dr. Lange has been watching. states they are currently putting mupirocin ointment on it. MD Complaint: extremity pain Pain Consistency: constant Location: left and lower extremity Radiation: none Associated symptoms: Reports no associated symptoms; Deny chest pain or fever(s) Context: recent surgery/procedure Related Data Home Medications Medication Instructions Recorded Confirmed albuterol sulfate 90 mcg/actuation 2 puff inhalation Q6H PRN sob 01/16/20 03/05/24 aerosol inhaler (Ventolin HFA) epinephrine 0.3 mg/0.3 mL 0.3 mg IM Q15M PRN Allergic 01/16/20 03/05/24 injection, auto-injector Reaction ezetimibe 10 mg tablet (Zetia) 10 mg PO DAILY 01/16/20 03/05/24 zolpidem 10 mg tablet (Ambien) 10 mg PO .1 hs 02/06/20 03/05/24 levocetirizine 5 mg tablet 5 mg PO DAILY 11/08/23 03/05/24 amitriptyline 10 mg tablet 10 mg PO QPM 03/05/24 03/05/24 azelastine 137 mcg (0.1 %) nasal 2 spray intranasal BID 03/05/24 03/05/24 spray baclofen 20 mg tablet 20 mg PO TID 03/05/24 03/05/24 ibuprofen 800 mg tablet 800 mg PO DAILY 03/05/24 03/05/24 modafinil 100 mg tablet 100 mg PO DAILY 03/05/24 03/05/24 Previous Rx's Medication Instructions Recorded nitroglycerin 0.4 mg sublingual 0.4 mg sublingual Q5M PRN chest 08/30/21 tablet (Nitrostat) pain #25 tabs fluticasone propionate 50 2 spray intranasal DAILY #48 grams 04/21/22 mcg/actuation nasal spray,suspension (Allergy Relief (fluticasone)) cyclobenzaprine 10 mg tablet 10 mg PO Q8H #20 tabs 08/06/23 pantoprazole 40 mg tablet,delayed 40 mg PO BID #60 tabs 10/05/23 release oxycodone-acetaminophen 7.5 mg-325 1 tab PO Q8H PRN pain 1 week #21 02/22/24 mg tablet (Percocet) tabs buspirone 10 mg tablet 10 mg PO BID #180 tabs 02/26/24 diltiazem HCl 30 mg tablet 30 mg PO BID #180 tabs 02/26/24 losartan 50 mg tablet 50 mg PO DAILY #90 tabs 02/26/24 cyclobenzaprine 10 mg tablet 10 mg PO TID PRN muscle spasm #30 02/27/24 tabs Allergies Allergy/AdvReac Type Severity Reaction Status Date / Time insect venom Allergy Severe ALGY-Anaphy Verified 02/26/24 13:49 laxis mirtazapine Allergy Intermediate ITCHING Verified 02/26/24 13:49 gabapentin Allergy UNKNOWN Verified 02/26/24 13:49 alphagal Allergy upset GI Uncoded 02/26/24 13:49 Review of Systems 2 Const: Denies: fever(s), chills, body aches, fatigue or malaise Card: Denies: chest pain Resp: Denies: dyspnea Musc: Reports: extremity pain; Denies: neck pain, back pain, extremity swelling or joint redness Skin/Breast: Reports: erythema (anterior L lower leg) PFSH ED 2 PFSH: Medical History Acute viral syndrome Left shoulder pain Left arm numbness Combined hyperlipidemia Obesity Low back pain History of myelitis Sleep apnea HTN (hypertension) GERD (gastroesophageal reflux disease) JESUS (generalized anxiety disorder) Surgical History Hx of nasal sinusotomy History of placement of ear tubes S/P foot surgery Hx of hernia repair History of cardiac radiofrequency ablation (RFA) History of cholecystectomy Family History Sister Cancer Father Cancer Diabetes Mother CAD (coronary artery disease) Diabetes Sister Diabetes Social History Smoking and tobacco/nicotine status: current every day tobacco/nicotine user (chewing tabacco) Quit status (tobacco/nicotine): has quit using Second hand smoke exposure: No Alcohol intake: current Alcohol intake frequency: holidays/special occasions only Alcohol type: beer and hard liquor Substance/Drug Use: current Adopted: No Caregiver/support person: No Lives independently: Yes Household members: spouse Housing: House Marital status: Number of children: 2 Highest education level completed: High School Graduate service: No Current occupational status: disabled Pets and animals: Yes Leisure activites: hunting and fishing Sexually active: Yes Do you think of yourself as: Straight/Heterosexual Current gender identity: Male Fabby/Muslim: Roman Catholic Special fabby needs: No Agree to transfusion: Yes Physical Exam 2 Const: COMMON NORMALS: no acute distress, patient oriented x3, no limitations, alert and well nourished GENERAL APPEARANCE: cooperative NUTRITIONAL APPEARANCE: obese (BMI 42.0) Resp: COMMON NORMALS: normal respiratory effort and clear to auscultation bilaterally AUSCULTATION: clear to auscultation bilaterally Cardio: COMMON NORMALS: regular rate and regular rhythm RATE: regular rate RHYTHM: regular rhythm Extremity: COMMON NORMALS: capillary refill normal GENERAL: Yes normal exam except as noted LEFT LOWER EXTREMITY: Yes lower leg, Yes ankle joint and Yes foot & digits OTHER: pt surgical incision overall looks well-small area of wound dehiscence present; he has erythema localized to anterior portion with clear demarcation on both sides of L LE that does not appear cellulitic; he thinks this was from his CAM boot being too tight-this actually did subside on repeat examination; NV intact; skin is tender to touch; ROM testing to ankle not performed due to him being post operative Neuro: COMMON NORMALS: patient oriented x3, moves all extremities, no focal motor deficits and no sensory deficits noted SENSORIUM/ORIENTATION: Yes alert Course 2 Vital Signs: Vital signs: Vital Signs Temperature 98.4 F 03/05/24 11:30 Pulse Rate 86 03/05/24 13:37 Respiratory Rate 18 03/05/24 11:30 Blood Pressure 120/89 03/05/24 13:37 Pulse Oximetry 99 03/05/24 13:37 Oxygen Delivery Me thod Room Air 03/05/24 11:30 MDM - Extremity (Nontraumatic) Medical Decision Making Ultrasound per tech was negative for DVT. His vital signs are normal. Blood work showing a normal white count and normal CRP. The redness to his anterior lower leg subsided and probably related to the CAM walker and did not represent cellulitis. states they have a follow-up appoint with Dr. Lange on . Medical Records I reviewed the patient's medical records. Lab Data I reviewed the patient's lab results. 03/05/24 12:02 03/05/24 12:02 Laboratory Results WBC 6.99 10^3/uL (3.29-11.43) 03/05/24 12:02 RBC 4.86 10^6/uL (3.85-5.65) 03/05/24 12:02 Hgb 14.80 g/dL (11.27-16.99) 03/05/24 12:02 Hct 44.4 % (37-53) 03/05/24 12:02 MCV 91.4 fl (82-101) 03/05/24 12:02 MCH 30.5 pg (27-33) 03/05/24 12:02 MCHC 33.3 g/dL (30-55) 03/05/24 12:02 RDW 13.2 % (12.1-15.1) 03/05/24 12:02 Plt Count 207 10^3/cmm (157-399) 03/05/24 12:02 MPV 10.1 fL (7.4-10.4) 03/05/24 12:02 Neut % (Auto) 47.3 % 03/05/24 12:02 Lymph % (Auto) 38.8 % 03/05/24 12:02 [place] % (Auto) 10.6 % 03/05/24 12:02 Eos % (Auto) 2.6 % 03/05/24 12:02 Baso % (Auto) 0.4 % 03/05/24 12:02 Neut # (Auto) 3.31 10^3/uL (1.8-7.7) 03/05/24 12:02 Lymph # (Auto) 2.7 10^3/uL (0.8-4.8) 03/05/24 12:02 York # (Auto) 0.7 10^3/uL (0.2-0.9) 03/05/24 12:02 Eos # (Auto) 0.2 10^3/uL (0.0-0.8) 03/05/24 12:02 Baso # (Auto) 0.0 10^3/uL (0.0-0.1) 03/05/24 12:02 Nucleated RBC % (auto) 0 % 03/05/24 12:02 Nucleated RBCs # 0.0 /100WBC 03/05/24 12:02 Sodium 140 mmol/L (136-145) 03/05/24 12:02 Potassium 4.4 mmol/L (3.5-5.1) 03/05/24 12:02 Chloride 107 mmol/L (98-107) 03/05/24 12:02 Carbon Dioxide 21 mmol/L (22-29) L 03/05/24 12:02 Anion Gap 16.4 (5-19) 03/05/24 12:02 BUN 9 mg/dL (6-20) 03/05/24 12:02 Creatinine 0.6 mg/dL (0.7-1.2) L 03/05/24 12:02 GFR Calculation 138.4 mL/min (90-130) H 03/05/24 12:02 Glucose 115 mg/dL (65-115) 03/05/24 12:02 Calculated Osmolality 290 mOsm/kg (285-295) 03/05/24 12:02 Calcium 8.7 mg/dL (8.5-10.5) 03/05/24 12:02 Total Bilirubin 0.2 mg/dL (0.15-1.2) 03/05/24 12:02 AST 27 U/L (0-40) 03/05/24 12:02 ALT 47 U/L (0-41) H 03/05/24 12:02 Alkaline Phosphatase 82 U/L (40-130) 03/05/24 12:02 C-Reactive Protein 3.0 mg/L (0.0-4.9) 03/05/24 12:02 Total Protein 6.3 g/dL (6.6-8.7) L 03/05/24 12:02 Albumin 4.0 g/dL (3.5-5.2) 03/05/24 12:02 Globulin 2.3 g/dL (1.3-4.6) 03/05/24 12:02 XR interpretation done by ED provider, pending radiology final review (negative per US tech) Discharge Plan Discharge Patient Disposition: Home Clinical Impression: Leg pain, left Condition: Stable Prescriptions: No Action zolpidem [Ambien] 10 mg tablet 10 mg PO .1 hs nitroglycerin [Nitrostat] 0.4 mg tablet, sublingual 0.4 mg sublingual Q5M PRN (Reason: chest pain) Qty: 25 3RF Rx Instructions: do not exceed 3 doses per episode ezetimibe [Zetia] 10 mg tablet 10 mg PO DAILY albuterol sulfate [Ventolin HFA] 90 mcg/actuation HFA aerosol inhaler 2 puff INHALATION Q6H PRN (Reason: sob) epinephrine 0.3 mg/0.3 mL auto-injector 0.3 mg IM Q15M PRN (Reason: Allergic Reaction) Rx Instructions: for 2 doses levocetirizine 5 mg tablet 5 mg PO DAILY buspirone 10 mg tablet 10 mg PO BID Qty: 180 3RF diltiazem HCl 30 mg tablet 30 mg PO BID Qty: 180 3RF losartan 50 mg tablet 50 mg PO DAILY Qty: 90 3RF oxycodone-acetaminophen [Percocet] 7.5-325 mg tablet 1 tab PO Q8H PRN (Reason: pain) 7 Days Qty: 21 0RF fluticasone propionate [Allergy Relief (fluticasone)] 50 mcg/actuation spray,suspension 2 spray INTRANASAL DAILY Qty: 48 0RF Rx Instructions: administer into each nostril cyclobenzaprine 10 mg tablet 10 mg PO TID PRN (Reason: muscle spasm) Qty: 30 0RF cyclobenzaprine 10 mg tablet 10 mg PO Q8H Qty: 20 0RF pantoprazole 40 mg tablet,delayed release (DR/EC) 40 mg PO BID Qty: 60 5RF ibuprofen 800 mg tablet 800 mg PO DAILY baclofen 20 mg tablet 20 mg PO TID amitriptyline 10 mg tablet 10 mg PO QPM azelastine 137 mcg (0.1 %) spray,non-aerosol 2 spray INTRANASAL BID modafinil 100 mg tablet 100 mg PO DAILY Discharge Orders: Discharge ED (Routine); Ordered 03/05/24 Ordered By: Emeli Oviedo Referrals: Andrés Cohn [Primary Care Provider] - Activity Restrictions/Additional Instructions: Follow-up with Dr. Lange as scheduled on . Coding Level of Care Code ED Bottom Filler for Lazarus Meyers
--- NOTE | 2024-03-05 11:52 | USCV_ITS ---
Cal Thapa Age: 58 Gender: M : 1965 Exam Date: 03/05/2024 12:48 Ordering Phys: Emeli Oviedo Technologist: ENA Exam Location: [facility] [place]_ Indication: left leg pain PROCEDURES: Venous duplex imaging was performed in only the left lower extremity. The following venous structures were evaluated: common femoral vein, profunda vein, proximal portion of the greater saphenous vein, superficial femoral vein, and the popliteal vein. In addition, the posterior tibial and peroneal trunk were evaluated. FINDINGS: No evidence of DVT seen in any vessel visualized at this time. CONCLUSIONS No evidence of left lower extremity DVT. Hadley Fry MD (Electronically Signed) Final Date: 05 March 2024 17:02 S
[2024-03-05 12:11] LABS: Basophils % 0.4 %; Eosinophils # 0.2 10^3/uL (0.0-0.8); Eosinophils % 2.6 %; Hematocrit 44.4 % (37-53); Lymphocytes # 2.7 10^3/uL (0.8-4.8); Lymphocytes % 38.8 %; Mean Corpuscular HGB Conc 33.3 g/dL (30-55); Mean Corpuscular Hemoglobin 30.5 pg (27-33); Mean Corpuscular Volume 91.4 fl (82-101); Mean Platelet Volume 10.1 fL (7.4-10.4); Monocytes # 0.7 10^3/uL (0.2-0.9); Monocytes % 10.6 %; Neutrophils # 3.31 10^3/uL (1.8-7.7); Neutrophils % 47.3 %; Nucleated Red Blood Cells % 0 %; Platelet Count 207 10^3/cmm (157-399); Red Blood Count 4.86 10^6/uL (3.85-5.65); Red Cell Distribution Width 13.2 % (12.1-15.1); White Blood Count 6.99 10^3/uL (3.29-11.43)
[2024-03-05 12:28] LABS: Alanine Aminotransferase 47 U/L (0-41); Alkaline Phosphatase 82 U/L (40-130); Anion Gap 16.4 (5-19); Aspartate Amino Transferase 27 U/L (0-40); Blood Urea Nitrogen 9 mg/dL (6-20); Calcium 8.7 mg/dL (8.5-10.5); Carbon Dioxide 21 mmol/L (22-29); Chloride 107 mmol/L (98-107); Creatinine Clr Calc Pharmacy 162.2036; Globulin 2.3 g/dL (1.3-4.6); Glomerular Filtration Rate 138.4 mL/min (90-130); Glucose 115 mg/dL (65-115); Osmolality Calculated 290 mOsm/kg (285-295); Potassium 4.4 mmol/L (3.5-5.1); Sodium 140 mmol/L (136-145); Total Bilirubin 0.2 mg/dL (0.15-1.2); Total Protein 6.3 g/dL (6.6-8.7)
[2024-03-05] MEDS: morphine 4 mg/mL SDV 1 mL IM (13:33)
[2024-03-05 13:37] VITALS: BP 120/89; PULSE 86; O2SAT 99
[2024-03-05 14:06] VITALS: BP 120/89; PULSE 86; O2SAT 98
== END 2024-03-05 14:07 | disposition home or self-care (01) ==
PROVIDERS: Emergency Provider Physician Assistant; PCP Family Medicine
DX: M79.605 Pain in left leg (principal); F17.220 Nicotine dependence, chewing tobacco, uncomplicated; E78.2 Mixed hyperlipidemia; I10 Essential (primary) hypertension
CPT/HCPCS: 17000; 36415; 80053; 85025; 86140; 93971; 96372; 99213; 99284; J2270

== ENCOUNTER → 2024-03-07 15:29 | Outpatient (BNVA) | payer MEDICARE, SELFPAY | PROVIDERS: PCP Family Medicine; Visit Provider Podiatrist Foot & Ankle Surgery | DX: Z98.890 Other specified postprocedural states (principal); M19.072 Primary osteoarthritis, left ankle and foot | CPT/HCPCS: 73630; 99024 ==

== ENCOUNTER → 2024-04-04 15:19 | Outpatient (BNVA) | payer MEDICARE, SELFPAY | PROVIDERS: PCP Family Medicine; Visit Provider Podiatrist Foot & Ankle Surgery | DX: Z98.890 Other specified postprocedural states (principal); Z98.1 Arthrodesis status; M72.2 Plantar fascial fibromatosis; M19.072 Primary osteoarthritis, left ankle and foot; M21.6X2 Other acquired deformities of left foot | CPT/HCPCS: 73630; 99213 ==

== ENCOUNTER 2024-04-22 09:05 | Outpatient (CLI) | payer MEDICARE, SELFPAY ==
--- NOTE | 2024-04-22 09:30 | MRR_ITS ---
PROCEDURE INFORMATION: Exam: MR Left Lower Extremity Joint Without Contrast; Ankle Exam date and time: 04/22/2024 9:43 AM Age: 58 years old Clinical indication: Prior surgery; Surgery date: 1-6 months; Surgery type: Ankle fusion, December 2023; Left ankle pain since surgery in December, PT states most pain is posterior around achilles exam limited by hardware in pts foot, ; additional info: M72.2 - plantar fascial fibromatosis, eval plantar fascia TECHNIQUE: Imaging protocol: Magnetic resonance imaging of the left lower extremity without contrast. Exam focused on the ankle. COMPARISON: CR XR foot LT min 3V* [id number] 04/04/2024 3:27 PM FINDINGS: Limitations: Metallic artifact Bones/joints: Metallic artifact associated with screws traversing the calcaneus and posterior subtalar joint are noted. No definitive evidence of osseous union across the posterior subtalar joint. Moderate osteophyte formation arising from the calcaneus at the posterior subtalar joint, where there is developmental prominence of the posterior talar process. A screw traverses the tibiotalar joint, where there appears to be diffuse mature osseous fusion across the joint space, which is partially obscured by metallic artifact. Small posterior subtalar joint effusion. Evaluation of the marrow limited by metallic artifact, however, there appears to be moderate patchy bone marrow edema throughout the calcaneus, visualized talus and medial malleolus. This marrow edema is characterized by hyperintensity on the fluid sensitive sequences with mild corresponding T1 hypointensity. No acute fracture is identified. Moderate osteophyte formation at the anterior tibiofibular joint is noted. A small os navicularis is present, a developmental variant. LIGAMENTS: Distal tibiofibular syndesmosis: Unremarkable. No tear. Anterior talofibular ligament: Elevation of the anterior talofibular ligament is limited by artifact. Posterior talofibular ligament: Unremarkable. No tear. Calcaneofibular ligament: Unremarkable. No tear. Deltoid ligament complex: Assessment of the deltoid ligament is limited by artifact. TENDONS: Flexor tendons of foot: Unremarkable as visualized. Tibialis posterior tendon: Unremarkable as visualized. Peroneal tendons: Unremarkable as visualized. Extensor tendons of foot: Unremarkable as visualized. Tibialis anterior tendon: Unremarkable as visualized. Achilles tendon: Mild fusiform abnormal thickening and increased signal intensity within the Achilles tendon is present. Tarsal canal (Sinus tarsi): Unremarkable as visualized. Tarsal tunnel: Unremarkable. Soft tissues: Mild postoperative susceptibility artifact in the posteroinferior subcutaneous fat of the hindfoot is noted. Plantar fascia: Plantar fascia is unremarkable. MR/MR ankle LT wo con* [id number] IMPRESSION: 1. Postoperative changes involving the posterior subtalar joint, without evidence of osseous fusion across the joint space. 2. Possible bone marrow edema in the calcaneus, talus and medial malleolus, without evidence of an acute fracture or focal lesion. This appearance can exaggerate by metallic artifact. The possibility of bone contusions or stress changes are consideration. Osteomyelitis is less likely but cannot be entirely excluded in the proper clinical setting. 3. Postoperative changes of tibiotalar joint arthrodesis with evidence of fusion across the joint space. 4. 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 5. Mild Achilles tendinosis.
== END 2024-04-22 09:06 | disposition home or self-care (01) ==
LOC: RAD 09:08
PROVIDERS: PCP Family Medicine; Visit Provider Podiatrist Foot & Ankle Surgery
DX: M72.2 Plantar fascial fibromatosis (principal); M79.672 Pain in left foot; G89.29 Other chronic pain; Z98.1 Arthrodesis status; M19.072 Primary osteoarthritis, left ankle and foot; R93.6 Abnormal findings on diagnostic imaging of limbs; M25.775 Osteophyte, left foot; M25.475 Effusion, left foot
CPT/HCPCS: 73721

== ENCOUNTER → 2024-05-16 14:29 | Outpatient (BNVA) | payer MEDICARE, SELFPAY | PROVIDERS: PCP Family Medicine; Visit Provider Podiatrist Foot & Ankle Surgery | DX: Z98.890 Other specified postprocedural states (principal); M96.0 Pseudarthrosis after fusion or arthrodesis; M21.6X2 Other acquired deformities of left foot | CPT/HCPCS: 73630; 99213 ==

== ENCOUNTER → 2024-06-04 10:39 | Outpatient (BNVA) | payer MEDICARE, SELFPAY | PROVIDERS: PCP Family Medicine; Visit Provider Nurse Practitioner Family | DX: D17.22 Benign lipomatous neoplasm of skin and subcutaneous tissue of left arm (principal); L57.8 Other skin changes due to chronic exposure to nonionizing radiation; D22.5 Melanocytic nevi of trunk; D22.4 Melanocytic nevi of scalp and neck; Z85.820 Personal history of malignant melanoma of skin; Z08 Encounter for follow-up examination after completed treatment for malignant neoplasm; Z85.828 Personal history of other malignant neoplasm of skin | CPT/HCPCS: 99213 ==

== ENCOUNTER → 2024-06-13 13:46 | Outpatient (BNVA) | payer MEDICARE, SELFPAY | PROVIDERS: PCP Family Medicine; Visit Provider Podiatrist Foot & Ankle Surgery | DX: M96.0 Pseudarthrosis after fusion or arthrodesis (principal); Z98.890 Other specified postprocedural states; M21.6X2 Other acquired deformities of left foot | CPT/HCPCS: 73630; 99024 ==

== ENCOUNTER 2024-06-17 11:29 | Outpatient (CLI) | payer MEDICARE, SELFPAY | END 2024-06-17 11:30 | disposition home or self-care (01) | LOC: SPT 11:30 | PROVIDERS: PCP Family Medicine; Visit Provider Podiatrist Foot & Ankle Surgery | DX: Z47.89 Encounter for other orthopedic aftercare (principal); M21.6X9 Other acquired deformities of unspecified foot; M19.079 Primary osteoarthritis, unspecified ankle and foot; M21.621 Bunionette of right foot | CPT/HCPCS: L3030 ==

== ENCOUNTER → 2024-07-11 14:14 | Outpatient (BNVA) | payer MEDICARE, SELFPAY | PROVIDERS: PCP Family Medicine; Visit Provider Podiatrist Foot & Ankle Surgery | DX: M96.0 Pseudarthrosis after fusion or arthrodesis (principal); Z98.890 Other specified postprocedural states; M21.6X2 Other acquired deformities of left foot | CPT/HCPCS: 73630; 99214 ==

== ENCOUNTER → 2024-08-15 14:07 | Outpatient (BNVA) | payer MEDICARE, SELFPAY | PROVIDERS: PCP Family Medicine; Visit Provider Podiatrist Foot & Ankle Surgery | DX: Z98.890 Other specified postprocedural states (principal); M96.0 Pseudarthrosis after fusion or arthrodesis; M21.6X2 Other acquired deformities of left foot | CPT/HCPCS: 73630; 99213 ==

== ENCOUNTER 2024-08-26 12:50 | Outpatient (CLI) | payer MEDICARE, SELFPAY ==
--- NOTE | 2024-08-26 12:57 | MR_ITS ---
WS: [id number] MRI HEAD WITH CONTRAST WITH ATTENTION TO THE INTERNAL AUDITORY CANALS TECHNIQUE: Sagittal T1, T2 axial, T2 axial flair, axial susceptibility weighted imaging, axial diffusion weighted images, and coronal T2 images were obtained. Pre and post T1 axial and post T1 coronal images. ADC and FSPGR images. Post gadolinium images with attention to the internal auditory canals. Axial fiesta imaging. CLINICAL INFORMATION: MIXED CONDUCTIVE SENSORINEURAL HEARING LOSS COMPARISON: None. FINDINGS: No evidence of restricted diffusion to suggest acute ischemia. Ventricular system and basal cisterns are patent. Small retention cysts in the maxillary sinuses. Mastoid air cells are well aerated. Normal posterior nasopharynx. Normal posterior fossa. Normal vascular flow voids at the skull base. No extra- axial fluid collections. Minimal small vessel changes. Mild parenchymal volume loss. No hemosiderin on the susceptibility weighted images. Proximal 7th and 8th cranial nerves appear normal. No evidence of enhancing IAC or CP angle mass. Normal trigeminal nerve root entry zones. No abnormal intracranial enhancement. Normal dural venous sinuses. No other suspicious findings. MR/MR iac's wo/w con* [id number] IMPRESSION: 1. No evidence of restricted diffusion to suggest acute ischemia. 2. No evidence of enhancing IAC or CP angle mass. Normal trigeminal nerve root entry zones. 3. Mastoid air cells are well aerated. 4. No other acute findings.
[2024-08-26] MEDS: gadobenate dimeglumine 20 mL vial IV (13:39)
== END 2024-08-26 12:51 | disposition home or self-care (01) ==
PROVIDERS: PCP Family Medicine; Visit Provider Otolaryngology
DX: H90.A31 Mixed conductive and sensorineural hearing loss, unilateral, right ear with restricted hearing on the contralateral side (principal)
CPT/HCPCS: 70553

== ENCOUNTER → 2024-09-12 13:55 | Outpatient (BNVA) | payer MEDICARE, SELFPAY | PROVIDERS: PCP Family Medicine; Visit Provider Podiatrist Foot & Ankle Surgery | DX: D17.22 Benign lipomatous neoplasm of skin and subcutaneous tissue of left arm (principal); L57.8 Other skin changes due to chronic exposure to nonionizing radiation; D22.5 Melanocytic nevi of trunk; D22.4 Melanocytic nevi of scalp and neck; Z85.820 Personal history of malignant melanoma of skin; Z08 Encounter for follow-up examination after completed treatment for malignant neoplasm; Z85.828 Personal history of other malignant neoplasm of skin; M96.0 Pseudarthrosis after fusion or arthrodesis | CPT/HCPCS: 73630; 99213 ==

== ENCOUNTER → 2024-09-30 10:57 | Outpatient (BNVA) | payer MEDICARE, SELFPAY | PROVIDERS: PCP Family Medicine; Visit Provider Specialist | DX: M17.11 Unilateral primary osteoarthritis, right knee (principal); S83.231A Complex tear of medial meniscus, current injury, right knee, initial encounter; X58.XXXA Exposure to other specified factors, initial encounter | CPT/HCPCS: 73560; 73565 ==

== ENCOUNTER 2024-09-30 12:09 | Outpatient (CLI) | payer MEDICARE, SELFPAY | END 2024-09-30 12:10 | disposition home or self-care (01) | LOC: SPT 12:10 | PROVIDERS: PCP Family Medicine; Visit Provider Specialist | DX: Z46.89 Encounter for fitting and adjustment of other specified devices (principal); M25.561 Pain in right knee | CPT/HCPCS: 99214; L1812 ==

== ENCOUNTER 2024-10-04 05:37 | Day surgery (SDC) | payer MEDICARE, SELFPAY ==
[2024-10-04] VITALS (13 sets, daily range): BP systolic 124–141; BP diastolic 70–88; PULSE 61–69; RESP 15–20; TEMP 36.3–36.7; O2SAT 90–97; BMI 43.5
--- NOTE | 2024-10-04 | XR_ITS ---
WS: [id number] Left foot, C-arm fluoroscopy views, 10/04/2024 Clinical Data: TIMOTHY PICS Comparison: Left foot, 09/12/2024 Findings: Dr. Lange place an additional screw into the calcaneus which extends into the talus and lower tibia. XR/XR foot LT min 3V* [id number] Impression: Additional orthopedic screw inserted into left foot and ankle.
--- NOTE | 2024-10-04 06:41 | W.PM.OPSUD ---
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
[2024-10-04 06:47] LABS: Alanine Aminotransferase 48 U/L (0-41); Albumin Level 4.3 g/dL (3.5-5.2); Alkaline Phosphatase 76 U/L (40-130); Aspartate Amino Transferase 24 U/L (0-40); Blood Urea Nitrogen 13 mg/dL (6-20); Calcium 9.2 mg/dL (8.5-10.5); Carbon Dioxide 22 mmol/L (22-29); Chloride 104 mmol/L (98-107); Creatinine Clr Calc Pharmacy 165.6476; Globulin 2.7 g/dL (1.3-4.6); Glucose 100 mg/dL (65-115); Osmolality Calculated 288 mOsm/kg (285-295); Sodium 139 mmol/L (136-145); Total Protein 7.0 g/dL (6.6-8.7)
[2024-10-04 06:51] LABS: Anion Gap 17.3 (5-19); Potassium 4.3 mmol/L (3.5-5.1)
--- NOTE | 2024-10-04 07:04 | PC.NURSE ---
Popliteal Nerve block completed in pre-op by anesthesiologist. 30mL of 0.5% Ropivacaine and 4mg Decadron given. Pt VS monitored, pt tolerated well.
--- NOTE | 2024-10-04 07:05 | ANES.PREANE2 ---
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 Operation Date: 10/04/24 07:00 Proposed Procedures p Hardware Removal left foot(Left) - ZAYDA Malhotra Resection Ankle(Left) - Leon Lange DPM s Revisional Joint Subtalar Joint Arthrodesis(Left) - ZAYDA Malhotra autogenous bone graft left lower extremity(Left) - Leon Lange DPM Familial anesthetic complications: None Was Beta Lori taken within 24 hours: N/A Was Clonidine taken within 24 hours: N/A Last intake: Intake Last Liquid Date 10/03/24 Last Liquid Time 22:00 Last Solid Date 10/03/24 Last Solid Time 21:00 Social No alcohol and No tobacco Exam alert, oriented x 3, clear to auscultation bilaterally and regular rate & rhythm Airway Mallampati: Class IV Dentition: chipped Pulmonary Sleep Apnea CV/HEM Atrial Fibrillation and Hypertension Metabolic Morbid Obesity Anesthetic Plan ASA status: 3 Anesthesia: General and Regional (specify below) Risk of > 500 ml blood loss (7ml/kg in children): No Medications/Allergies Home Medications ?Medication ?Instructions ?Recorded ?Confirmed ?Last Taken ?Type albuterol sulfate 90 mcg/actuation 2 puff inhalation Q6H PRN sob 01/16/20 10/04/24 10/04/23 History aerosol inhaler (Ventolin HFA) epinephrine 0.3 mg/0.3 mL 0.3 mg IM Q15M PRN Allergic 01/16/20 10/04/24 Unknown History injection, auto-injector Reaction ezetimibe 10 mg tablet (Zetia) 10 mg PO DAILY 01/16/20 10/04/24 10/03/24 History zolpidem 10 mg tablet (Ambien) 10 mg PO .1 hs 02/06/20 10/04/24 10/03/24 History nitroglycerin 0.4 mg sublingual 0.4 mg sublingual Q5M PRN chest 08/30/21 10/04/24 Unknown Rx tablet (Nitrostat) pain #25 tabs fluticasone propionate 50 2 spray intranasal DAILY #48 grams 04/21/22 10/04/24 10/01/24 Rx mcg/actuation nasal spray,suspension (Allergy Relief (fluticasone)) levocetirizine 5 mg tablet 5 mg PO DAILY 11/08/23 10/04/24 10/03/24 History buspirone 10 mg tablet 10 mg PO BID #180 tabs 02/26/24 10/04/24 10/03/24 Rx losartan 50 mg tablet 50 mg PO DAILY #90 tabs 02/26/24 10/04/24 10/03/24 Rx azelastine 137 mcg (0.1 %) nasal 2 spray intranasal BID 03/05/24 10/04/24 09/29/24 History spray ibuprofen 800 mg tablet 800 mg PO DAILY 03/05/24 10/04/24 09/27/24 History modafinil 100 mg tablet 100 mg PO DAILY 03/05/24 10/04/24 10/03/24 History mupirocin 2 % topical ointment 1 applic topical TID #15 grams 03/07/24 10/04/24 Unknown Rx diltiazem HCl 30 mg tablet 30 mg PO BID #180 tabs 04/16/24 10/04/24 10/04/24 Rx Sole Supports #1 ea 05/16/24 09/30/24 Unknown Rx bone stimulator #1 ea 05/16/24 09/30/24 Unknown Rx Hinged Knee Brace, Right #1 ea 09/30/24 09/30/24 Unknown Rx cyclobenzaprine 10 mg tablet 10 mg PO DAILY 10/03/24 10/04/24 10/03/24 History pantoprazole 40 mg tablet,delayed 40 mg PO BID 10/03/24 10/04/24 10/03/24 History release cephalexin 500 mg tablet 500 mg PO Q6H 7 days #28 tabs 10/04/24 Unknown Rx oxycodone-acetaminophen 10 mg-325 1 tab PO Q6H PRN pain 7 days #28 10/04/24 Unknown Rx mg tablet (Percocet) tabs Allergies Allergy/AdvReac Type Severity Reaction Status Date / Time insect venom Allergy Severe ALGY-Anaphy Verified 10/04/24 06:03 laxis mirtazapine Allergy Intermediate ITCHING Verified 10/04/24 06:03 Alpha-Gal Allergy ADR-Gastrointestinal Verified 10/04/24 06:03 (Hhzkirldu-Qhrxi-1,3-Gala Upset gabapentin Allergy UNKNOWN Verified 10/04/24 06:03 Current Medications Generic Name Dose Route Start Last Admin Trade Name Freq PRN Reason Stop Dose Admin Sodium Chloride 1,000 mls @ 30 mls/hr 10/04/24 06:00 10/04/24 06:25 Sodium Chloride 0.9% IV 10/05/24 05:59 30 mls/hr .Q24H MARGE Administration PFSH Anesthesia Medical History (Updated 09/30/24 @ 15:56 by Nanette Moreno MD) Acute viral syndrome Left shoulder pain Left arm numbness Combined hyperlipidemia Obesity Low back pain History of myelitis Sleep apnea HTN (hypertension) GERD (gastroesophageal reflux disease) JESUS (generalized anxiety disorder) Surgical History Hx of nasal sinusotomy History of placement of ear tubes S/P foot surgery Hx of hernia repair History of cardiac radiofrequency ablation (RFA) History of cholecystectomy Family History Sister Cancer Father Cancer Diabetes Mother CAD (coronary artery disease) Diabetes Sister Diabetes Social History Smoking and tobacco/nicotine status: current every day tobacco/nicotine user (chewing tobacco) Quit status (tobacco/nicotine): has quit using Second hand smoke exposure: No Alcohol intake: current Alcohol intake frequency: holidays/special occasions only Alcohol type: beer and hard liquor Substance/Drug Use: current Adopted: No Caregiver/support person: No Lives independently: Yes Household members: spouse Housing: House Marital status: Number of children: 2 Highest education level completed: High School Graduate service: No Current occupational status: disabled Pets and animals: Yes Leisure activites: hunting and fishing Sexually active: Yes Do you think of yourself as: Straight/Heterosexual Current gender identity: Male Fabby/Mu-Ism: Alevism Special fabby needs: No Agree to transfusion: Yes Data Anesthesia 10/04/24 06:15 BMP 10/04/24 06:15 Sodium 139 Potassium 4.3 Chloride 104 Carbon Dioxide 22 BUN 13 Creatinine 0.6 L Glucose 100 Calcium 9.2 Liver Function 10/04/24 Range/Units 06:15 Total Bilirubin 0.6 (0.15-1.2) mg/dL AST 24 (0-40) U/L ALT 48 H (0-41) U/L Alkaline Phosphatase 76 (40-130) U/L Albumin 4.3 (3.5-5.2) g/dL Coags 10/04/24 06:15 ESR 7 C-Reactive Protein 3.0 Cardiac Studies: Echocardiogram 12/16/21 Sestamibi Stress Test (Cardiology) 09/02/21 Cardiac Event Monitor 11/18/20 Anesthesia Procedures Nerve Block Nerve Block 1: Main Anesthesia: general anesthesia Time Out Performed: Yes Consent: requested by attending/covering physician, from patient, from other, risks and benefits reviewed and patient agrees to proceed Nerve block location: popliteal (L) Anesthesia monitors applied: pulse oximetry, EKG, BP cuff and oxygen Nerve block position: supine Anesthetic Used: ropivicaine 0.5% (30 ml) and with decadron (4 mg) Ultrasound used to: recognize landmarks Nerve Stimulator Used?: No Interscalene/Femoral BLK: 4 stimuplex 21 g needle used for position and inplane approach, visualize local anesthetic spread and no vascular puncture identified Injection: neg aspiration of heme Patient Tolerated Procedure: well Complications: none
[2024-10-04] MEDS: ceFAZolin 3,000 MG in sodium chloride 0.9% (plus) 100 ML 200 MG IV (07:07)
[2024-10-04] MEDS: tranexamic acid 1,000 mg/10mL SDV 1000 MG IV (07:17)
--- NOTE | 2024-10-04 09:25 | P.BOP_ITS ---
Date of Procedure: 06/02/23 Surgeon: Leon Lange DPM [employer](s): Radha Procedure(s) performed: Hardware removal and subtalar joint fusion all left foot. Findings of the procedure(s): Nonunion left subtalar joint Estimated blood loss: 5 mL Specimen(s) removed: None Post-operative diagnosis: Nonunion and painful hardware left foot
--- NOTE | 2024-10-04 09:26 | P.OP_ITS ---
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 Procedure done: 1) hardware removal left foot. CPT code 91085 2) resection of nonunion and revisional left subtalar joint arthrodesis. 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 Discussed revision with bone graft and additional fixation both risks and benefits were discussed including but not limited to another nonunion and chronic pain. I reviewed at length with the patient, the risks, potential complications, benefits, alternatives, expectations, and typical outcomes associated with the surgery. The risks and potential complications were explained in detail, including but not limited to infection, wound dehiscence or soft tissue complications, bleeding and hematoma, chronic edema, neuritis or nerve damage producing numbness or chronic pain, CRPS, failure to relieve pain or worsening pain, thick / painful / unsightly scar, limited motion / stiffness, malposition, delayed union, malunion, or nonunion, fracture, reaction to implants, anesthetic complications, venous thromboembolism, and deformity recurrence. I discussed the notion of no regrets with the patient as it pertains to complications and outcomes. The patient seemed to understand the nature of the proposed care and required convalescence. They asked appropriate questions, answered to their satisfaction. They are aware no guarantees can be made as to a satisfactory outcome and they understand there may be other possible unforeseen complications or outcomes not listed here that will be treated accordingly if they arise. There were no written or implied guarantees given to the patient. They gave informed consent to proceed. Surgical approach will entail bone graft from ipsilateral tibia, planning on additional points of fixation likely 3 screw with standard AO technique. Will perform laboratory studies day of surgery to evaluate calcium, vitamin D magnesium vitamin K zinc and copper. Procedure: Under mild sedation the patient was brought to the operating room and positioned onto the operating table in supine position. A timeout was performed. Anesthesia was then administered by the anesthesia service. Of note left popliteal block performed preoperatively per anesthesia service. Well-padded pneumatic tourniquet applied to the left high calf. The left lower extremity was scrubbed, prepped and draped utilizing normal aseptic technique. The left lower extremity was then exanguinated with an Esmarch bandage and tourniquet inflated to 250 mmHg. Attention was directed to the posterior heel utilizing C arm guidance and incision was performed through skin with #15 blade with dissection carried down to the posterior inferior calcaneus. 2 screws were removed from calcaneus and talus in total and passed from the operative field, screws were removed in total without fragmentation or failure. The incision was irrigated with copious amounts of sterile skin solution. Attention was directed to the lateral sinus tarsi cicatrix and directly through previous incision and skin incision was performed with a #15 blade through skin with dissection carried down through subcutaneous tissue to the layer of the left subtalar joint utilizing a combination of sharp and blunt technique. Care was taken to retract and preserve neurovascular and tendinous structures. All bleeders were ligated and cauterized as necessary. Nonunion appreciated at the left subtalar joint this was resected sharply with rongeur, curette, osteotome mobilizing the subtalar joint. Subtalar joint was further resected of fibrous nonunion followed by saline flush and subchondral drilling with fenestrating drill bit. Subtalar joint was held in slight valgus and fixated utilizing standard AO technique with a [place] 7 mm screw headless from posterior inferior to anterior superior crossing the posterior facet of the subtalar joint and 2 threads out from the anterior tibia to obtain greater compression and screw purchase with excellent bony apposition and compression noted in excellent alignment in the AP oblique and lateral views, calcaneal axial view also confirmed centralized fixation within the calcaneal tuberosity, second screw was fixated in traditional fashion with parallel screw fixation [place] 28 7 mm screw long thread to avoid run out at the arthrodesis site this was also confirmed to have excellent placement with AP ankle, AP oblique and lateral view of the foot as well as calcaneal axial of the heel. A third point of fixation from inferior to superior with a headless threaded 5.5 millimeter screw at the anterior calcaneus of the central talus with excellent bony apposition and compression noted at the arthrodesis site the bone to bone apposition was appropriately tight and could only be packed with some DBM, no autogenous bone graft harvested due to lack of bony voids to be filled. The incision was irrigated with saline solution and closed in a layered fashion with periosteum reapproximated with 2-0 Vicryl. Subcutaneous tissue reapproximated with 3-0 Vicryl and skin with 4-0 nylon. The incisions were dressed with Xeroform, sterile 4 x 4 gauze, Kerlix and well-padded multilayer compressive posterior splint with a stirrup. Tourniquet was deflated and a prompt hyperemic response is noted to the distal digits of the left foot. Patient tolerated the procedure and anesthesia well and was transferred to the PACU with vital signs stable vascular status intact. Following a period of postoperative monitoring we discharged home without home care instructions and scheduled follow-up.
--- NOTE | 2024-10-04 09:48 | PC.NURSE ---
Resting quietly, no complaints of pain
[2024-10-04] MEDS: oxyCODONE-APAP 10-325 mg Tablet 1 TAB PO (10:30)
--- NOTE | 2024-10-04 11:00 | ANE.PACU2 ---
Inpatient post-anesthesia follow up: Airway intact: Yes Vital signs: Temperature 97.6 F Pulse Rate 66 Respiratory Rate 18 Blood Pressure 136/88 Pulse Oximetry 94 Oxygen Delivery Me thod Room Air Oxygen Flow Rate Fraction of Inspir ed Oxygen Hydration adequate: No Nausea and vomiting: No Pain level: 4 Pain level: top of foot Mental status: Baseline
== END 2024-10-04 10:59 | disposition home or self-care (01) ==
PROVIDERS: PCP Family Medicine; Visit Provider Podiatrist Foot & Ankle Surgery
PROC: (CPT 28725; principal; 2024-10-04 07:00)
PROC: (CPT 28725; 2024-10-04 07:00)
PROC: (CPT 28725; 2024-10-04 07:00)
DX: M96.0 Pseudarthrosis after fusion or arthrodesis (principal); M21.6X9 Other acquired deformities of unspecified foot; E78.5 Hyperlipidemia, unspecified; E66.01 Morbid (severe) obesity due to excess calories; Z68.41 Body mass index [BMI] 40.0-44.9, adult; G47.30 Sleep apnea, unspecified; I10 Essential (primary) hypertension; K21.9 Gastro-esophageal reflux disease without esophagitis; F41.9 Anxiety disorder, unspecified; F17.220 Nicotine dependence, chewing tobacco, uncomplicated; I48.91 Unspecified atrial fibrillation
CPT/HCPCS: 28725; 20680; 73630; 76000; 80053; 82306; 85651; 86140; C1713; C1762; J0690; J1100; J2250; J2405; J2795; J3010; J7030; J9999

== ENCOUNTER → 2024-10-17 13:40 | Outpatient (BNVA) | payer MEDICARE, SELFPAY | PROVIDERS: PCP Family Medicine; Visit Provider Podiatrist Foot & Ankle Surgery | DX: Z98.890 Other specified postprocedural states (principal) | CPT/HCPCS: 73630; 99024 ==

== ENCOUNTER → 2024-10-21 12:58 | Outpatient (BNVA) | payer MEDICARE, SELFPAY | PROVIDERS: PCP Family Medicine; Visit Provider Podiatrist Foot & Ankle Surgery | DX: Z98.890 Other specified postprocedural states (principal); M79.672 Pain in left foot | CPT/HCPCS: 99024 ==

== ENCOUNTER 2024-10-28 10:18 | Outpatient (CLI) | payer MEDICARE, SELFPAY | END 2024-10-28 10:19 | disposition home or self-care (01) | LOC: SPT 10:20 | PROVIDERS: PCP Family Medicine; Visit Provider Podiatrist Foot & Ankle Surgery | DX: Z47.89 Encounter for other orthopedic aftercare (principal); Z98.890 Other specified postprocedural states | CPT/HCPCS: L4361 ==

== ENCOUNTER → 2024-11-14 11:23 | Outpatient (BNVA) | payer MEDICARE, SELFPAY | PROVIDERS: PCP Family Medicine; Visit Provider Podiatrist Foot & Ankle Surgery | DX: Z98.890 Other specified postprocedural states (principal) | CPT/HCPCS: 73650; 99024 ==

== ENCOUNTER → 2024-11-25 12:12 | Outpatient (BNVA) | payer MEDICARE, SELFPAY | PROVIDERS: PCP Family Medicine; Visit Provider Internal Medicine | DX: I48.91 Unspecified atrial fibrillation (principal); I10 Essential (primary) hypertension; F17.220 Nicotine dependence, chewing tobacco, uncomplicated | CPT/HCPCS: 99214 ==

== ENCOUNTER → 2024-11-28 13:12 | Outpatient (BNVA) | payer MEDICARE, SELFPAY | PROVIDERS: PCP Family Medicine; Visit Provider Podiatrist Foot & Ankle Surgery | DX: D17.22 Benign lipomatous neoplasm of skin and subcutaneous tissue of left arm (principal); L57.8 Other skin changes due to chronic exposure to nonionizing radiation; Z85.820 Personal history of malignant melanoma of skin; Z08 Encounter for follow-up examination after completed treatment for malignant neoplasm; Z85.828 Personal history of other malignant neoplasm of skin; Z98.890 Other specified postprocedural states | CPT/HCPCS: 73630; 99024; 99213 ==

== ENCOUNTER → 2024-12-26 13:22 | Outpatient (BNVA) | payer MEDICARE, SELFPAY | PROVIDERS: PCP Family Medicine; Visit Provider Podiatrist Foot & Ankle Surgery | DX: Z98.890 Other specified postprocedural states (principal); Z98.1 Arthrodesis status | CPT/HCPCS: 73630; 99024 ==

== ENCOUNTER → 2025-01-03 09:52 | Outpatient (BNVA) | payer MEDICARE, SELFPAY | PROVIDERS: PCP Family Medicine; Visit Provider Specialist | DX: M17.11 Unilateral primary osteoarthritis, right knee (principal) | CPT/HCPCS: 20610; J1100; J2795; J3301; J9999 ==

== ENCOUNTER → 2025-01-08 12:41 | Outpatient (BNVA) | payer MEDICARE, SELFPAY | PROVIDERS: PCP Family Medicine; Visit Provider Podiatrist Foot & Ankle Surgery | DX: Z98.890 Other specified postprocedural states (principal); M79.672 Pain in left foot; Z98.1 Arthrodesis status | CPT/HCPCS: 73630; 99213 ==

== ENCOUNTER → 2025-01-23 13:55 | Outpatient (BNVA) | payer MEDICARE, SELFPAY | PROVIDERS: PCP Family Medicine; Visit Provider Podiatrist Foot & Ankle Surgery | DX: Z98.890 Other specified postprocedural states (principal); Z98.1 Arthrodesis status | CPT/HCPCS: 73630; 99213 ==

== ENCOUNTER 2025-01-27 11:17 | Emergency (ER) | payer MEDICARE, SELFPAY ==
--- NOTE | 2025-01-27 11:19 | ECG_ITS ---
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 Measurements Intervals [place] Rate: 64 P: 72 HI: 182 QRS: -69 QRSD: 121 T: 33 QT: 371 QTc: 385 Interpretive Statements SINUS RHYTHM RIGHT BUNDLE BRANCH BLOCK [120+ ms QRS DURATION, UPRIGHT V1, 40+ ms S IN I/aVL/V4/V5/V6] LEFT ANTERIOR FASCICULAR BLOCK [QRS AXIS <= -45, QR IN I, RS IN II] Compared to ECG 12/24/2023 11:44:56 Sinus bradycardia no longer present Myocardial infarct finding no longer present Electronically Signed On 01-27-2025 18:11:21 TOURIST INFORMATION ASSISTANT by Judah Leija M.D. [email or web address]
--- NOTE | 2025-01-27 11:19 | XR_ITS ---
WS: [id number] Exam: XR chest 1V portable [id number] Date/Time of Exam: 01/27/2025 11:19 AM Reason For Exam: chest pain Comparison 12/24/2023. Lungs are clear and fully inflated. Normal cardiomediastinal silhouette and regional bony elements. Fusion hardware in the lower C-spine. XR/XR chest 1V portable [id number] IMPRESSION: 1. Negative chest.
--- NOTE | 2025-01-27 11:20 | W.ED.CHESTPA ---
HPI - Chest Pain General: Chief Complaint: Chest Pain Stated Complaint: Chest Pain Time Seen by Provider: 01/27/25 11:19 History of Present Illness: 59-year-old man with a history of a cardiac ablation, hypertension, sleep apnea, depression, recently started on Wellbutrin, hyperlipidemia and GERD who presents emergency room after having an episode of chest pain. He says he took a nitro and it got better. He says he does not exactly member why he has the nitro but he sat up for a long time and has not had to take it in a long time. Central chest pressure. Lasted about 15 minutes. He has been feeling fine before and since. Related Data Home Medications ?Medication ?Instructions ?Recorded ?Confirmed albuterol sulfate 90 mcg/actuation 2 puff inhalation Q6H PRN sob 01/16/20 01/27/25 aerosol inhaler (Ventolin HFA) epinephrine 0.3 mg/0.3 mL 0.3 mg IM Q15M PRN Allergic 01/16/20 01/27/25 injection, auto-injector Reaction ezetimibe 10 mg tablet (Zetia) 10 mg PO DAILY 01/16/20 01/27/25 zolpidem 10 mg tablet (Ambien) 10 mg PO BEDTIME 02/06/20 01/27/25 levocetirizine 5 mg tablet 5 mg PO DAILY 11/08/23 01/27/25 azelastine 137 mcg (0.1 %) nasal 2 spray intranasal BID PRN 03/05/24 01/27/25 spray allergies ibuprofen 800 mg tablet 800 mg PO DAILY PRN Pain 03/05/24 01/27/25 pantoprazole 40 mg tablet,delayed 40 mg PO BID 10/03/24 01/27/25 release baclofen 20 mg tablet 20 mg PO TID PRN Pain 01/27/25 01/27/25 bupropion HCl 150 mg tablet,12 hr 150 mg PO BID 01/27/25 01/27/25 sustained-release cyclobenzaprine 10 mg tablet 10 mg PO Q8H PRN Muscle Spasm 01/27/25 01/27/25 hydrocodone 7.5 mg-acetaminophen 1 tab PO Q6H PRN pain 01/27/25 01/27/25 325 mg tablet ketoconazole 2 % shampoo See Rx Instructions .Route .COMPLEX 01/27/25 01/27/25 Previous Rx's ?Medication ?Instructions ?Recorded nitroglycerin 0.4 mg sublingual 0.4 mg sublingual Q5M PRN chest 08/30/21 tablet (Nitrostat) pain #25 tabs fluticasone propionate 50 2 spray intranasal DAILY #48 grams 04/21/22 mcg/actuation nasal spray,suspension (Allergy Relief (fluticasone)) buspirone 10 mg tablet 10 mg PO BID #180 tabs 02/26/24 losartan 50 mg tablet 50 mg PO DAILY #90 tabs 02/26/24 diltiazem HCl 30 mg tablet 30 mg PO BID #180 tabs 04/16/24 Sole Supports #1 ea 05/16/24 bone stimulator #1 ea 05/16/24 Hinged Knee Brace, Right #1 ea 09/30/24 Cam boot to left #1 ea 10/25/24 orthopedic shoes with rocker #1 ea 01/08/25 bottom on the left Allergies Allergy/AdvReac Type Severity Reaction Status Date / Time insect venom Allergy Severe ALGY-Anaphy Verified 01/27/25 11:30 laxis mirtazapine Allergy Intermediate ITCHING Verified 01/27/25 11:30 Alpha-Gal Allergy ADR-Gastrointestinal Verified 01/27/25 11:30 (Vqmpzkobs-Sspjk-5,3-Gala Upset gabapentin Allergy UNKNOWN Verified 01/27/25 11:30 Review of Systems Narrative: Constitutional symptoms: Negative except as documented in HPI. Skin symptoms: Negative except as documented in HPI. Eye symptoms: Negative except as documented in HPI. ENMT symptoms: Negative except as documented in HPI. Respiratory symptoms: Negative except as documented in HPI. Cardiovascular symptoms: Negative except as documented in HPI. Gastrointestinal symptoms: Negative except as documented in HPI. Genitourinary symptoms: Negative except as documented in HPI. Musculoskeletal symptoms: Negative except as documented in HPI. Neurologic symptoms: Negative except as documented in HPI. Psychiatric symptoms: Negative except as documented in HPI. Endocrine symptoms: Negative except as documented in HPI. PFSH ED PFSH: Medical History (Updated 01/27/25 @ 13:39 by Zayda Valdivia MD) Acute viral syndrome Left shoulder pain Left arm numbness Combined hyperlipidemia Obesity Low back pain History of myelitis Sleep apnea HTN (hypertension) GERD (gastroesophageal reflux disease) JESUS (generalized anxiety disorder) Surgical History Hx of nasal sinusotomy History of placement of ear tubes S/P foot surgery Hx of hernia repair History of cardiac radiofrequency ablation (RFA) History of cholecystectomy Family History Sister Cancer Father Cancer Diabetes Mother CAD (coronary artery disease) Diabetes Sister Diabetes Social History Smoking and tobacco/nicotine status: current every day tobacco/nicotine user (chewing tobacco) Quit status (tobacco/nicotine): has quit using Second hand smoke exposure: No Alcohol intake: current Alcohol intake frequency: holidays/special occasions only Alcohol type: beer and hard liquor Substance/Drug Use: current Adopted: No Caregiver/support person: No Lives independently: Yes Household members: spouse Housing: House Marital status: Number of children: 2 Highest education level completed: High School Graduate service: No Current occupational status: disabled Pets and animals: Yes Leisure activites: hunting and fishing Sexually active: Yes Do you think of yourself as: Straight/Heterosexual Current gender identity: Male Fabby/Adventist: Restorationist Special fabby needs: No Agree to transfusion: Yes Physical Exam Narrative: EXAM NARRATIVE: General: Alert, no acute distress. Skin: Warm, dry. Head: Normocephalic, atraumatic. Neck: Supple, trachea midline. Eye: Extraocular movements are intact. Ears, nose, mouth and throat: mucosa moist. Cardiovascular: Regular, Normal peripheral perfusion. Respiratory: Lungs are clear to auscultation, respirations are non-labored, breath sounds are equal, Symmetrical chest wall expansion. Gastrointestinal: Soft, Nontender, Non distended Musculoskeletal: Normal ROM, no deformity. Neurological: Alert and oriented, No focal neurological deficit observed. Psychiatric: Cooperative, appropriate mood & affect. Course Vital Signs: Vital signs: Vital Signs Temperature 98.1 F 01/27/25 11:27 Pulse Rate 70 01/27/25 13:50 Respiratory Rate 22 H 01/27/25 12:59 Blood Pressure 144/91 01/27/25 13:50 Pulse Oximetry 97 01/27/25 13:50 Oxygen Delivery Me thod Room Air 01/27/25 12:07 MDM - Chest Pain Medical Decision Making Medical decision making: Patient's reason for coming to the emergency room: Chest pain Social determinants: Disabled, I reviewed the patient's medical record. 59-year-old man with a history of a cardiac ablation, hypertension, sleep apnea, depression, recently started on Wellbutrin, hyperlipidemia and GERD I reviewed the patient's current home meds Patient not currently on any anticoagulation Alternate historians: did provide some history Differential diagnosis for patient with chest pain includes but is not limited to and based on the above HPI, review of systems and physical exam: Pneumonia. unstable angina. angina. Acute coronary syndrome / [place]. Pulmonary embolism. Costochondritis / musculoskeletal. Pleurisy. Pericarditis. Esophageal spasm. Pancreatitis. Cholecystitis. Orders placed to evaluate differential diagnosis based on the above differential, HPI and physical exam EKG: Time 11:25 AM. Rate 64. Normal sinus rhythm, No ST-T changes, no ectopy, right bundle branch block, This was reviewed and interpreted by myself the ER physician at 1127 a.m. Repeat EKG: Time 1329. Rate 62. Normal sinus rhythm, No ST-T changes, no ectopy, normal DE & QRS intervals, This was reviewed and interpreted by myself the ER physician at 1335 Chest x-ray: No acute process. No infiltrate. No pneumothorax. This was reviewed and interpreted by myself the emergency room physician. I also reviewed the radiology report. Lab Review: Laboratory results were reviewed and interpreted by myself the emergency room physician. No leukocytosis. No anemia. No renal failure. Serial cardiac markers are negative. Lipase is negative. Liver enzymes are normal. Assessment of risk: Level of risk: Moderate. Patient does have several comorbidities. Hospitalization considerations: I did consider hospitalization but heart score was just 3. Workup can continue as an outpatient and they have an appointment on Monday with her PCP. I did offer admission but the patient adamantly wants to go home. Clinical decision support: Patient had a heart score of 3. Continue workup promptly as an outpatient. He has an appointment Reexamination: Patient remained stable. No increased work of breathing. No altered mental status. No focal motor deficits. No further chest pain. Assessment and plan: Noncardiac chest pain - Discharged home - Discussed plan with patient. Answered any questions. - Evaluation and treatment of this problem were appropriate in the emergency setting. Lab Data 01/27/25 11:27 01/27/25 11:27 Radiology Impressions Chest X-Ray 01/27/25 11:19 IMPRESSION: 1. Negative chest. Laboratory Results WBC 9.22 10^3/uL (3.29-11.43) 01/27/25 11: RBC 4.99 10^6/uL (3.85-5.65) 01/27/25 11: Hgb 15.10 g/dL (11.27-16.99) 01/27/25 11:27 Hct 45.9 % (37-53) 01/27/25 11: MCV 92.0 fl (82-101) 01/27/25 11: MCH 30.3 pg (27-33) 01/27/25 11: MCHC 32.9 g/dL (30-55) 01/27/25 11: RDW 13.2 % (12.1-15.1) 01/27/25 11: Plt Count 233 10^3/cmm (157-399) 01/27/25 11: MPV 9.7 fL (7.4-10.4) 01/27/25 11: Neut % (Auto) 53.1 % 01/27/25 11:27 Lymph % (Auto) 33.0 % 01/27/25 11:27 [place] % (Auto) 11.7 % 01/27/25 11:27 Eos % (Auto) 1.5 % 01/27/25 11: Baso % (Auto) 0.4 % 01/27/25 11: Neut # (Auto) 4.89 10^3/uL (1.8-7.7) 01/27/25 11:27 Lymph # (Auto) 3.0 10^3/uL (0.8-4.8) 01/27/25 11:27 [place] # (Auto) 1.1 10^3/uL (0.2-0.9) H 01/27/25 11:27 Eos # (Auto) 0.1 10^3/uL (0.0-0.8) 01/27/25 11:27 Baso # (Auto) 0.0 10^3/uL (0.0-0.1) 01/27/25 11:27 Nucleated RBC % (auto) 0 % 01/27/25 11:27 Nucleated RBCs # 0.0 /100WBC 01/27/25 11:27 PT 13.40 SECONDS (12.1-14.9) 01/27/25 11:27 INR 0.96 (0.8-1.2) 01/27/25 11:27 APTT 26.0 SECONDS (23.9-36.7) 01/27/25 11:27 Sodium 142 mmol/L (136-145) 01/27/25 11:27 Potassium 4.7 mmol/L (3.5-5.1) 01/27/25 11:27 Chloride 107 mmol/L (98-107) 01/27/25 11:27 Carbon Dioxide 24 mmol/L (22-29) 01/27/25 11:27 Anion Gap 15.7 (5-19) 01/27/25 11:27 BUN 12 mg/dL (6-20) 01/27/25 11:27 Creatinine 0.7 mg/dL (0.7-1.2) 01/27/25 11:27 GFR Calculation 115.4 mL/min (90-130) 01/27/25 11:27 Glucose 97 mg/dL (65-115) 01/27/25 11: Calculated Osmolality 294 mOsm/kg (285-295) 01/27/25 11:27 Calcium 8.8 mg/dL (8.5-10.5) 01/27/25 11:27 Total Bilirubin 0.4 mg/dL (0.15-1.2) 01/27/25 11:27 AST 23 U/L (0-40) 01/27/25 11:27 ALT 34 U/L (0-41) 01/27/25 11:27 Alkaline Phosphatase 98 U/L (40-130) 01/27/25 11:27 Troponin T Baseline 11 ng/L (0-15) 01/27/25 11:27 Troponin T 120 Minute 9.75 ng/L (0-15) 01/27/25 12:57 Delta Troponin T -1.25 ABS# (0-10) L 01/27/25 12:57 NT-Pro-B Natriuret Pep < 36 pg/mL (0-125) 01/27/25 11:27 Total Protein 6.4 g/dL (6.6-8.7) L 01/27/25 11:27 Albumin 4.3 g/dL (3.5-5.2) 01/27/25 11:27 Globulin 2.1 g/dL (1.3-4.6) 01/27/25 11:27 Lipase 21 U/L (13-60) 01/27/25 11:27 All radiology interpretation(s) finalized by discharge Clincial Decision Support The following clinical decision support tools were used to aid in care of the patient HEART Score -> History: Moderately Suspicious, EKG: Normal, Age: 45-64 yrs, Risk Factors: 1 or 2 Risk Factors, Troponin: Baseline Trop <16 ng/L. Resulting HEART Score: 3. Discharge Plan Discharge Patient Disposition: Home Clinical Impression: Non-cardiac chest pain Condition: Stable Prescriptions: No Action zolpidem [Ambien] 10 mg tablet 10 mg PO BEDTIME nitroglycerin [Nitrostat] 0.4 mg tablet, sublingual 0.4 mg sublingual Q5M PRN (Reason: chest pain) Qty: 25 3RF Rx Instructions: do not exceed 3 doses per episode ezetimibe [Zetia] 10 mg tablet 10 mg PO DAILY albuterol sulfate [Ventolin HFA] 90 mcg/actuation HFA aerosol inhaler 2 puff INHALATION Q6H PRN (Reason: sob) epinephrine 0.3 mg/0.3 mL auto-injector 0.3 mg IM Q15M PRN (Reason: Allergic Reaction) Rx Instructions: for 2 doses levocetirizine 5 mg tablet 5 mg PO DAILY buspirone 10 mg tablet 10 mg PO BID Qty: 180 3RF losartan 50 mg tablet 50 mg PO DAILY Qty: 90 3RF (DME) bone stimulator See Rx Instructions .Route .MEDSUPPLY Qty: 1 0RF Rx Instructions: As directed (DME) Sole Supports See Rx Instructions .Route .MEDSUPPLY Qty: 1 0RF Rx Instructions: As directed (DME) orthopedic shoes with rocker bottom on the left See Rx Instructions .Route .MEDSUPPLY Qty: 1 0RF Rx Instructions: As directed (DME) Hinged Knee Brace, Right See Rx Instructions .Route .MEDSUPPLY Qty: 1 0RF Rx Instructions: As directed (DME) Cam boot to left See Rx Instructions .Route .MEDSUPPLY Qty: 1 0RF Rx Instructions: As directed fluticasone propionate [Allergy Relief (fluticasone)] 50 mcg/actuation spray,suspension 2 spray INTRANASAL DAILY Qty: 48 0RF Rx Instructions: administer into each nostril diltiazem HCl 30 mg tablet 30 mg PO BID Qty: 180 3RF bupropion HCl 150 mg tablet sustained-release 12 hr 150 mg PO BID ketoconazole 2 % shampoo See Rx Instructions .ROUTE .COMPLEX Rx Instructions: APPLY 5 MLS TO WET SANCHEZ, LATHER, LEAVE ON 3 MINUTES, AND RINSE, APPLY TWICE WEEKLY FOR 4 WEEKS. baclofen 20 mg tablet 20 mg PO TID PRN (Reason: Pain) cyclobenzaprine 10 mg tablet 10 mg PO Q8H PRN (Reason: Muscle Spasm) hydrocodone-acetaminophen 7.5-325 mg tablet 1 tab PO Q6H PRN (Reason: pain) ibuprofen 800 mg tablet 800 mg PO DAILY PRN (Reason: Pain) azelastine 137 mcg (0.1 %) spray,non-aerosol 2 spray INTRANASAL BID PRN (Reason: allergies) pantoprazole 40 mg tablet,delayed release (DR/EC) 40 mg PO BID Discharge Orders: Discharge ED (Routine); Ordered 01/27/25 Ordered By: Zayda Valdivia Referrals: Andrés Cohn [Primary Care Provider, Family Practice] Discharge Diet: Usual diet Discharge Activity: Increase activity as tolerated Patient Instructions: Noncardiac Chest Pain (ED), Opioid Safety, Pain Management, Patient Portal & Patricia Instructions Activity Restrictions/Additional Instructions: Thank you for choosing [facility] for your healthcare needs today. You have been screened and evaluated and felt safe for discharge. Health conditions do change or evolve sometimes and as such it is important that you follow up with your Primary Doctor to be re checked, 3-5 days is a general good time frame for follow up. You are always welcome to return to the ED for re assessment if your symptoms are worsening or you have new concerns Print Language: Bhutanese Coding Level of Care Code ED Architectural Modeler for Chg Fwd Heart Score HEART Score Components History: Moderately Suspicious EKG: Normal Age: 45-64 yrs Risk Factors: 1 or 2 Risk Factors Troponin: Baseline Trop <16 ng/L HEART Score RESULT HEART Score: 3
--- OUTSIDE RECORDS SUMMARY | 2025-01-27 11:22 | XMS_ITS | Encounter Summary ---
Author Organization [facility] Address [address] [place] [address] Care Team Providers Care Merchandising Consultant Name Role Phone Andrés Cohn MD Primary Care Provider [phone] Reason for Visit * Reason Comments Med Refill Encounter Details Date Type Department Care Team (Late st Contact Info) Description 01/20/2025 Refill [facility] Family Medicine [address] [phone] Andrés Cohn MD [address] [phone] Social History Tobacco Use Types Packs/Day Years Used Date Smoking Tobacco: Former Cigarettes Q uit: 03/20/1980 Smokeless Tobacco: Current Chew Alcohol Use Standard Drinks/Week Comments Not Currently 0 (1 standard drink = 0.6 oz pur e alcohol) Financial Resource Strain Answer Date R ecorded How hard is it for you to pa y for the very basics like food, housing, medical care, and heating? Somewhat hard 05/09/2022 Food Insecurity Answer Date Recorded In the past 12 months, have you worried that your food would run out before you had money to buy more? Sometimes true 2022 In the past 12 months, did y ou run out of food and didn't have money to buy more? Never true 05/09/2022 Transportation Needs Answer Date Record ed In the past 12 months, has l ack of transportation kept you from medical appointments or from getting medications? 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 Recent and Future Visits: Recent Visits Date Type Provider Dept 12/06/24 Office Visit Andrés Cohn MD [facility] 05/13/24 Office Visit Andrés Cohn MD [facility] 03/22/24 Office Visit [facility] 11/09/23 Office Visit Andrés Cohn MD [facility] 09/11/23 Office Visit Andrés Cohn MD [facility] 08/11/23 Office Visit [facility] Showing recent visits within past 540 days with a meds authorizing provider and meeting all other requirements Future Appointments Date Type Provider Dept 01/31/25 Appointment Andrés Cohn MD [facility] Showing future appointments within next 365 days with a meds authorizing provider and meeting all other requirements HING ROOM SUPERVISOR documented in this encounter Plan of Treatment Upcoming Encounters Date Type Department Care Team (Late st Contact Info) Description 01/31/2025 3:40 PM CLOTHING ROOM SUPERVISOR Office Visit [facility] [address] [phone] Andrés Cohn MD [address] [phone] documented as of this encounter Visit Diagnoses Not on filedocumented in this encounter Additional Health Concerns Assessment Noted Time PHQ-9 Depression Total Score: 3 12/06/19 25 9:04 PM CDT documented as of this encounter Care Teams Merchandising Consultant Relationship Specialty Start Date End Date Andrés Cohn MD [address] [phone] PCP - General Family Practice 12/09/19 documented as of this encounter
--- OUTSIDE RECORDS SUMMARY | 2025-01-27 11:22 | XMS_ITS | Clinical Summary ---
Author Organization [facility] Address [address] [place] [address] Care Team Providers Care Clinical Research Associate Name Role Phone Andrés Cohn MD Primary Care Provider [phone] Allergies Active Allergy Reactions Criticality Noted Date Comments Alpha-Gal (Zwbxomzox-Zfbyn-7,3-Galac tose) Anaphylaxis,Abdominal Pain High 11/25/2022 Gabapentin Other (See Comments) 11/22/2019 crazy Insect Venom Anaphylaxis High 10/19/2021 Mirtazapine Itching Medium 10/19/2021 Medications CPAP / BIPAP suppliesIndication s:Obstructive sleep apnea Length of need: 99 monthsMask Type: full face with headgear every 6 months, mask only every 3 months, Tubing: heated 1 every 3 months, water chamber 1 every 6 months, chin strap 1 every 6 months, filters disposable 2 per month, filters reusable 1 per 6 months. 1 Each 0 11/22/19 20 Active multivitamin (DAILY-JESSIE) tablet Take 1 Tablet by mouth daily. Active flecainide (TAMBOCOR) 150 mg Tablet Take 150 mg by mouth 2 times daily. Active cetirizine (ZyrTEC) 10 mg tabletIndications: Urticaria TAKE 1 TABLET BY MOUTH TWICE A DAY 180 Tablet 1 02/20/20 21 Active CPAP / BIPAP supplies Resmed CPAP 13 cwp Length of need: 99 months Mask Type:mask per patient comfort with headgear every 6 months, mask only every 3 months,as needed cushions per month. Tubing: heated 1 every 3 months, water chamber 1 every 6 months, chin strap 1 every 6 months, filters disposable 2 per month, filters reusable 1 per 6 months, efficacy data download feature and mask fitting. 1 Each 02/26/20 21 Active olopatadine (PATADAY) 0.2 % solution Administer 1 Drop in both eyes daily. 2.5 mL 2 05/20/19 22 Active hydroCHLOROthiazid e 25 mg tablet TAKE 1 TABLET BY MOUTH EVERY DAY NEEDED FOR EDEMA 12/14/19 22 Active isosorbide mononitrate (IMDUR) 30 mg Extended Release 24 hour tablet Take 30 mg by mouth daily. 11/07/19 22 Active losartan (COZAAR) 50 mg tablet Take 50 mg by mouth daily. 12/08/19 22 Active ALBUTEROL INHALATION Take by inhalation. 11/22/19 20 Active busPIRone (BUSPAR) 10 mg tablet Take 10 mg by mouth 3 times daily. 04/12/19 23 Active mupirocin (BACTROBAN) 2% OintmentIndication s:Insect bite of right forearm, initial encounter Apply to affected area daily. 15 Gram 08/06/19 23 Active ergocalciferol (VITAMIN D2) 50,000 unit capsule TAKE 1 CAPSULE (50,000 UNITS) BY MOUTH EVERY 7 DAYS 12 Capsule 2 09/27/19 23 Active CYANOCOBALAMIN, VITAMIN B-12, ORAL Take 10,000 mcg by mouth daily. Active Saccharomyces boulardii (FLORASTOR) 250 mg Capsule Take 500 mg by mouth daily. Active EPINEPHrine (EPIPEN) 0.3 mg/0.3 mL Auto-InjectorIndic ations:History of anaphylaxis INJECT 0.3 ML (0.3 MG) BY INTRAMUSCULAR INJECTION 1 TIME DAILY NEEDED FOR ANAPHYLAXIS. 2 Each 1 05/22/19 24 Active hydrOXYzine HCL (ATARAX) 10 mg tablet Take 1 Tablet (10 mg) by mouth 3 times daily as needed for Anxiety. 30 Tablet 5 05/26/19 24 Active benzonatate (TESSALON) 200 mg capsule TAKE 1 CAPSULE BY MOUTH 3 TIMES A DAY NEEDED FOR COUGH 15 Capsule 07/28/19 24 Active diltiaZEM (CARDIZEM) 30 mg tablet Take 30 mg by mouth 2 times daily. Active albuterol sulfate HFA 90 mcg/actuation aerosol inhalerIndications :Mild intermittent asthma without complication Take 2 Puffs by inhalation every 4 hours as needed for Shortness of Breath or Wheezing. 18 Gram 11 11/09/19 24 Active azelastine (ASTELIN) 137 mcg/actuation nasal sprayIndications:S easonal allergic rhinitis, unspecified trigger SPRAY 2 SPRAYS IN EACH NOSTRIL 2 TIMES DAILY. 30 mL 5 12/22/19 24 Active baclofen (LIORESAL) 20 mg tablet TAKE 1 TABLET BY MOUTH 3 TIMES DAILY NEEDED FOR PAIN. DOSE INCREASE 300 Tablet 1 03/15/20 24 Active ondansetron (ZOFRAN) 8 mg Tablet TAKE 1 TABLET BY MOUTH EVERY 8 HOURS NEEDED FOR NAUSEA AND VOMITING FOR 7 DAYS 01/12/20 24 Active metoprolol tartrate (LOPRESSOR) 25 mg tablet 2 times daily. Activ e cyclobenzaprine (FLEXERIL) 10 mg tablet take 1 tablet by mouth three times a day as needed for muscle spasms 02/27/20 24 Active pantoprazole (PROTONIX) 40 mg Tablet, Delayed Release (E.C.) Take 40 mg by mouth daily. 04/15/19 25 Active ezetimibe (ZETIA) 10 mg tablet TAKE 1 TABLET BY MOUTH EVERY DAY 100 Tablet 3 05/20/19 25 Active fluticasone propionate (FLONASE) 50 mcg/spray Floweree, Suspension nasal inhaler ADMINISTER 2 SPRAYS INTO EACH NOSTRIL EVERY DAY 48 mL 3 07/02/19 25 Active levocetirizine (XYZAL) 5 mg tablet TAKE 1 TABLET BY MOUTH LATE IN THE DAY 100 Tablet 3 07/16/19 25 Active ibuprofen (MOTRIN) 800 mg tabletIndications: Generalized osteoarthritis of multiple sites TAKE 1 TABLET BY MOUTH 1 TIME DAILY NEEDED FOR PAIN, MILD. 30 Tablet 5 11/02/19 25 Active doxycycline hyclate (VIBRAMYCIN) 100 mg tablet Take by mouth Continuous as needed. 10/18/19 25 Active semaglutide, weight loss, (WEGOVY) 0.25 mg/0.5 mL Pen InjectorIndication s:Morbid obesity with body mass index of 40.0-49.9 (CMS/HCC),Essentia l hypertension,Obstr uctive sleep apnea,Aortic atherosclerosis Inject 0.5 mL (0.25 mg) by subcutaneous injection every 7 days. 2 mL 5 12/07/19 25 Active buPROPion HCL (Wellbutrin SR) 150 mg Sustained Release 12 hour tabletIndications: Chewing tobacco nicotine dependence without complication,Moder ate major depression (CMS/HCC) Take 1 Tablet (150 mg) by mouth 2 times daily. Dose increase 60 Tablet 5 12/19/19 25 Active zolpidem (AMBIEN) 10 mg tabletIndications: Primary insomnia Take 1 Tablet (10 mg) by mouth nightly as needed for Insomnia. 30 Tablet 5 01/07/20 25 Active ketoconazole (NIZORAL) 2 % Shampoo APPLY 5 ML TO WET SANCHEZ, LATHER, LEAVE ON 3 MINUTES, AND RINSE, APPLY TWICE WEEKLY FOR 4 WEEKS 120 mL 1 01/21/20 25 Active HYDROcodone-acetam inophen (NORCO) 7.5-325 mg TabletIndications: Chronic midline low back pain with bilateral sciatica Take 1 Tablet by mouth 2 times daily as needed for Pain, Moderate. Max Daily Amount: 2 Tablets 40 Tablet 01/24/20 25 Active ketoconazole (NIZORAL) 2 % Shampoo APPLY 5 ML TO WET SANCHEZ, LATHER, LEAVE ON 3 MINUTES, AND RINSE, APPLY TWICE WEEKLY FOR 4 WEEKS 120 mL 1 02/22/20 23 025 Disconti nued(Reo rder) zolpidem (AMBIEN) 10 mg tabletIndications: Primary insomnia TAKE 1 TABLET BY MOUTH NIGHTLY NEEDED FOR INSOMNIA. 30 Tablet 5 08/10/19 25 025 Disconti nued(Reo rder) HYDROcodone-acetam inophen (NORCO) 7.5-325 mg TabletIndications: Chronic midline low back pain with bilateral sciatica Take 1 Tablet by mouth daily. Max Daily Amount: 1 Tablet 20 Tablet 12/19/19 25 025 Disconti nued(Reo rder) HYDROcodone-acetam inophen (NORCO) 7.5-325 mg TabletIndications: Chronic midline low back pain with bilateral sciatica Take 1 Tablet by mouth daily. Max Daily Amount: 1 Tablet 20 Tablet 01/02/20 25 025 Disconti nued(Reo rder) HYDROcodone-acetam inophen (NORCO) 7.5-325 mg TabletIndications: Chronic midline low back pain with bilateral sciatica Take 1 Tablet by mouth 2 times daily as needed for Pain, Moderate. Max Daily Amount: 2 Tablets 40 Tablet 01/02/20 25 025 Disconti katiaed(Reo rder) Active Problems Problem Noted Date Diagnosed Date Moderate major depression 12/06/2024 Chewing tobacco nicotine dependence without comp lication 12/06/2024 Chronic midline low back pain with bilateral sci atica 05/13/2024 Chronic fatigue 11/09/2023 Allergic reaction to alpha-gal 12/01/2022 Aortic atherosclerosis 06/01/2022 History of anaphylaxis 07/28/2021 Mild intermittent asthma without complication Therapeutic opioid induced constipation 03/30/19 Generalized osteoarthritis of multiple sites 01/2022 RLS (restless legs syndrome) 03/02/2021 History of myelitis 03/02/2021 Mixed hyperlipidemia 03/02/2021 Cardiac arrhythmia 12/09/2019 Vitamin D deficiency 12/09/2019 Morbid obesity with body mass index of 40.0-49.9 12/09/2019 H/O cardiac radiofrequency ablation 12/09/2019 Primary insomnia 11/25/2019 Essential hypertension 11/25/2019 Non-seasonal allergic rhinitis 11/25/2019 Obstructive sleep apnea 11/25/2019 Gastroesophageal reflux disease without esophagi tis 11/25/2019 Resolved Problems Problem Noted Date Diagnosed Date Resolved Date JESUS (generalized anxiety disorder) 01/14/2020 03/02/2021 shelter prescription opiate use 12/09/2019 03/02/2021 Acute transverse myelitis 11/22/2019 Encounters Date Type Department Care Team Description 01/22/[address] [phone] Andrés Cohn MD Chronic midline low back pain with bilateral sciatica 01/20/[address] [phone] Andrés Cohn MD 01/08/2025 External Device Data STL ABSTRACTION Provider, Abstract 01/04/[address] [phone] Andrés Cohn MD Primary insomnia 01/01/[address] [address] Andrés Cohn MD Chronic midline low back pain with bilateral sciatica 12/31/2024 Medication Prior Auth Encounter [facility] Prescription Management Dept [facility] [place] [address] Claudia Balderas, PHARMACIST 12/30/[address] [phone] Andrés Cohn MD Chronic midline low back pain with bilateral sciatica 2024 Medication Prior Auth Encounter [address] [address] Andrés Cohn MD 12/19/[address] [phone] Andrés Conh MD Medication Assistance 12/17/[address] [phone] Andrés Cohn MD Chronic midline low back pain with bilateral sciatica (Primary Dx); Chewing tobacco nicotine dependence without complication; Moderate major depression (CMS/HCC) 12/10/2024 External Device Data STL ABSTRACTION Provider, Abstract 12/10/2024 External Device Data STL ABSTRACTION Provider, Abstract 12/10/2024 External Device Data STL ABSTRACTION Provider, Abstract 12/06/2024 3:20 PM CDT Office Visit [address] [phone] Andrés Cohn MD Medicare annual wellness visit, subsequent (Primary Dx); Morbid obesity with body mass index of 40.0-49.9 (CMS/HCC); Essential hypertension; Obstructive sleep apnea; Aortic atherosclerosis; Chewing tobacco nicotine dependence without complication; Moderate major depression (CMS/HCC); Primary osteoarthritis of right knee; Complex tear of medial meniscus of right knee as current injury, initial encounter 12/06/[address] [phone] Andrés Cohn MD Morbid obesity with body mass index of 40.0-49.9 ([facility]); Essential hypertension; Obstructive sleep apnea; Aortic atherosclerosis 12/03/2024 External Device Data STL ABSTRACTION Provider, Abstract 11/21/2024 11:00 AM CDT Office Visit [facility] [address] [place] [address] Jose Morillo PA-C Chronic pain of right knee (Primary Dx); Preop testing 11/21/2024 10:55 AM CDT Ancillary Procedure [facility] [address] [place] [phone] Jose Morillo PA-C Chronic pain of right knee 11/05/2024 External Device Data STL ABSTRACTION Provider, Abstract 11/01/2024 [facility] [address] [phone] Andrés Cohn MD Generalized osteoarthritis of multiple sites from Last 3 Months Family History Medical History Relation Name Comments Osteoporosis Neg Hx Social History Tobacco Use Types Packs/Day Years Used Date Smoking Tobacco: Former Cigarettes Q uit: 03/20/1980 Smokeless Tobacco: Current Chew Tobacco Cessation:Ready to Q uit: No; Counseling Given: Yes Alcohol Use Standard Drinks/Week Comments Not Currently [...] on file 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 Gender Identity Not on file Sexual Orientation Not on file Last Filed Vital Signs Vital Sign Reading Time Taken Comments Blood Pressure 128/80 12/06/2024 3:53 PM CDT Pulse 92 12/06/2024 3:53 PM CDT Temperature 36.8 C (98.2 F) 12/06/2024 3:53 PM CDT Respiratory Rate 20 12/06/2024 3:53 PM CDT Oxygen Saturation 97% 12/06/2024 3:53 PM CDT Inhaled Oxygen Concentration - - Weight 119.7 kg (264 lb) 12/06/2024 3:53 PM CDT Height 167.6 cm (5' 6 ) 12/06/2024 3:53 PM CDT Body Mass Index 42.61 12/06/2024 3:53 PM CDT Plan of Treatment Upcoming Encounters Date Type Department Care Team (Late st Contact Info) Description 01/31/2025 3:40 PM BAR FINISH OPERATOR Office Visit [address] [phone] Andrés Cohn MD [address] [address] Health Maintenance Due Date Last Done Comments FIT/FOBT Q 1 YEAR (AUTO ORDER) 12/21/1983 HEPATITIS B VACCINES (1 of 3 - 19+ 3-dose series) 1984 FIT/FOBT Q 1 year 2010 Flex Sig/CT Colonography Q 5 years 2010 ZOSTER VACCINE (1 of 2) 12/21/2015 INFLUENZA VACCINE (#1) 2024 , 07/08/2022, 12/09/2019, Additional history exists Pre-Diabetes and Diabetes Screening 05/31/2025 05/31/2022 FIT-DNA Q 3 years 06/06/2025 06/06/2022 FIT/ DNA Q 3 YEARS (AUTO ORDER) 06/06/2025 3, 06/06/2022 DTAP/TDAP/TD VACCINES (3 - T d or Tdap) 10/10/2026 10/10/2016, 12/22/2009 FLEX SIG/CT COLONOGRAPHY Q 5 YEARS (AUTO ORDER) 06/07/2027 06/06/2022, 06/06/2022 COLORECTAL CANCER SCREENING (AUTO ORDER) 03/15/2033 03/15/2023, 08/17/2017 COLORECTAL SCREENING 03/15/2033 03/15/2023, 08/18/19 Colorectal Cancer Screening (AUTO ORDER) 03/15/2033 Colorectal Cancer Screening 03/15/2033 Abdominal Aortic Aneurysm (A AA) Screening Completed 07/25/2019, 07/03/2014, 12/15/2013, Additional history exists Medicare Advantage ([place]) Preventative Visit/Annual Wellness Visit Completed 12/06/2024, 05/11/2023, 05/10/2022, Additional history exists Medical Devices Implanted Type Area Client Delivery Manager Device Identifier Shelf Expiration Date Model / Serial / Lot Hand/Wrist Internal Brace Sys Ar-8978-Cp - [id number] Implanted:Qty: 1 on 08/14/2020 by Ashley Cordoba MD [place] Left: Hand [employer] [id number] 06/17/2025 AR-8978-CP / / [id number] Wire K Trocar Dbl .[id number] - [id number] Implanted:Qty: 1 on 08/14/2020 by Ashley Cordoba MD Wire Left: Hand BRASSELER Ruzuku [id number] 05/05/2025 [id number] / / [id number] Wire K Trocar Dbl .[id number] - [id number] Implanted:Qty: 1 on 08/14/2020 by Ashley Cordoba MD Wire Left: Hand BRASSELER Ruzuku [id number] 05/05/2025 [id number] / / [id number] Procedures Procedure Name Priority Date/Time Associated Diagnosis Comments XR KNEE 4+ VW RIGHT Routine 11/21/2024 1 1:19 AM CDT Chronic pain of right knee ENDOSCOPY, COLON, SCREENING Routine 03/15/2023 9:34 AM 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 I have personally read the xrays and they show: -Tricompartmental compartment narrowing -Joint space narrowing is Severe -Osteophytes present -Subchondral sclerosis -Cystic formation Jose Morillo PA-C [facility] Final Result * ENDOSCOPY, COLON, SCREENING (03/15/2023 9:34 AM BAR FINISH OPERATOR) us Abstract Provider GI PROCEDURE ORDERABLES Final Result * COLON CANCER SCREEN, STOOL DNA (06/06/2022 2:15 PM CDT) COLOGUARD RESULT Negative Negative [facility] Comment: NEGATIVE TEST RESULT. A negative Cologuard result indicates a low likelihood that a colorectal cancer (CRC) or advanced adenoma (adenomatous polyps with more advanced pre-malignant features) is present. The chance that a person with a negative Cologuard test has a colorectal cancer is less than 1 in 1500 (negative predictive value >99.9%) or has an advanced adenoma is less than 5.3% (negative predictive value 94.7%). These data are based on a prospective cross-sectional study of 10,000 individuals at average risk for colorectal cancer who were screened with both Cologuard and colonoscopy. (Zac Khan al, N Engl J Med 2014;370(14):5221-0441) The normal value (reference range) for this assay is negative. COLOGUARD RE-SCREENING RECOMMENDATION: Periodic colorectal cancer screening is an important part of preventive healthcare for asymptomatic individuals at average risk for colorectal cancer. Following a negative Cologuard result, the [place] Cancer Society and U.S. Multi-Society Task Force screening guidelines recommend a Cologuard re-screening interval of 3 years. References: [place] Cancer Society Guideline for Colorectal Cancer Screening: https://www.cancer.org/cancer/vikez-hgdxra-zwiimx/ocfbffyyh-atnvcmsum-qwjhsxa/ac s-rec ommendations.html.; Eliot DK, Helen AMADOR, Jeremías SmythK, Colorectal Cancer Screening: Recommendations for Physicians and Patients from the U.S. Multi-Society Task Force on Colorectal Cancer Screening , Am J Gastroenterology 2017; 112:4404-7269. TEST DESCRIPTION: Composite algorithmic analysis of stool DNA-biomarkers with hemoglobin immunoassay. Quantitative values of individual biomarkers are not reportable and are not associated with individual biomarker result reference ranges. Cologuard is intended for colorectal cancer screening of adults of either sex, 45 years or older, who are at average-risk for colorectal cancer (CRC). Cologuard has been approved for use by the U.S. FDA. The performance of Cologuard was established in a cross sectional study of average-risk adults aged 50-84. Cologuard performance in patients ages 45 to 49 years was estimated by sub-group analysis of near-age groups. Colonoscopies performed for a positive result may find as the most clinically significant lesion: colorectal cancer [4.0%], advanced adenoma (including sessile serrated polyps greater than or equal to 1cm diameter) [20%] or non- advanced adenoma [31%]; or no colorectal neoplasia [45%]. These estimates are derived from a prospective cross-sectional screening study of 10,000 individuals at average risk for colorectal cancer who were screened with both Cologuard and colonoscopy. (Zac Lopez, N Engl J Med 2014;370(14):5356-7877.) Cologuard may produce a false negative or false positive result (no colorectal cancer or precancerous polyp present at colonoscopy follow up). A negative Cologuard test result does not guarantee the absence of CRC or advanced adenoma (pre-cancer). The current Cologuard screening interval is every 3 years. ([place] Cancer Society and U.S. Multi-Society Task Force). Cologuard performance data in a 10,000 patient pivotal study using colonoscopy as the reference method can be accessed at the following location: www.HRsoft.com/results. Additional description of the Cologuard test process, warnings and precautions can be found at www.ID.merd.com. Stool STOOL SPECIMEN / Unknown 06/06/2022 2:15 PM CDT 06/07/2022 4:49 PM CDT Andrés Cohn MD BODY FLUIDS AND STOOLS Fi nal Result [facility] CLIA # [id number] [address], [address] [place] [address] * HEMOGLOBIN A1C (05/31/2022 9:12 AM CDT) HEMOGLOBIN A1C 5.4 <5.7 % of total [facility] Comment: For the purpose of screening for the presence of diabetes: <5.7% Consistent with the absence of diabetes 5.7-6.4% Consistent with increased risk for diabetes (prediabetes) > or =6.5% Consistent with diabetes This assay result is consistent with a decreased risk of diabetes. Currently, no consensus exists regarding use of hemoglobin A1c for diagnosis of diabetes in children. According to [place] Diabetes Association (ADA) guidelines, hemoglobin A1c <7.0% represents optimal control in non- diabetic patients. Different metrics may apply to specific patient populations. Standards of Medical Care in Diabetes(ADA). ESTIMATED AVERAGE GLUCOSE (MG/DL) 108 mg/dL [facility] ESTIMATED AVERAGE GLUCOSE (MMOL/L) 6.0 mmol/L [facility] Comment: Test Performed at: [facility] [address] [place] [address] Fransico Berry MD Blood 05/31/2022 9:12 AM CDT 06/01/2022 3:29 AM CDT Andrés Cohn MD CHEMISTRY ORDERABLES Gretchen l Result [facility] [phone] [facility] [address] [phone] from Last 3 Months or Most Recently Relevant to Health Maintenance Insurance [facility] [id number] * Guarantor: CAL THAPA Account Type Relation to Patient Date of Phone Billing Address Personal/Family [id number] [place] [address] RX [employer] Member Subscriber Plan / Payer (Ef fective 2020-Present) Name:Cal Thapa Relation to Subscriber:Self Name:Cal Thapa Subscriber ID:Not on file Payer ID:Not on file Group ID:[id number] Type:RX Medicare Part D Address: [address] Care Teams Clinical Research Associate Relationship Specialty Start Date End Date Andrés Cohn MD [address] [facility] [address] [place] [address] PCP - General Family Practice 12/09/19
--- OUTSIDE RECORDS SUMMARY | 2025-01-27 11:23 | XMS_ITS | Clinical Summary ---
Author Organization [facility] Address [address] [place] [address] Care Team Providers Care Charter Boat Captain Name Role Phone Andrés Cohn MD Primary Care Provider [phone] Allergies Active Allergy Reactions Criticality Noted Date Comments Gabapentin Other (See Comments) 11/22/2019 crazy Medications fluticasone propionate (FLONASE) 50 mcg/spray [place], Suspension nasal inhaler Administer 2 Sprays in each nostril daily. Active pantoprazole (PROTONIX) 20 mg Tablet, Delayed Release (E.C.) Take 20 mg by mouth daily. Active ALBUTEROL INHALATION Take by inhalation. Active pregabalin (LYRICA) 100 mg Capsule Take 100 mg by mouth every 12 hours. Active ergocalciferol (VITAMIN D2) 50,000 unit capsule Take 50,000 Units by mouth every 7 days. Active ezetimibe (ZETIA) 10 mg tablet Take 10 mg by mouth daily. Active baclofen (LIORESAL) 10 mg tablet Take 10 mg by mouth 3 times daily as needed for Pain. Active flecainide (TAMBOCOR) 150 mg Tablet Take 150 mg by mouth every 12 hours. Active azelastine (ASTELIN) 137 mcg/actuation nasal spray Administer 2 Sprays in each nostril 2 times daily. Active olopatadine (PATADAY) 0.2 % solution 1 Drop daily. Active multivitamin (DAILY-JESSIE) tablet Take 1 Tablet by mouth daily. Active CPAP / BIPAP suppliesIndicatio ns:Obstructive sleep apnea Length of need: 99 months Mask Type: full face with headgear every 6 months, mask only every 3 months, Tubing: heated 1 every 3 months, water chamber 1 every 6 months, chin strap 1 every 6 months, filters disposable 2 per month, filters reusable 1 per 6 months. 1 Each 0 Active metoprolol succinate (TOPROL XL) 25 mg Extended Release 24 hour tabletIndications :Essential hypertension Take 1 Tablet (25 mg) by mouth daily. 90 Tablet 1 1 Active naloxone (NARCAN) 4 mg/spray [place], Non-AerosolIndica tions:[facility] prescription opiate use EMERGENCY USE ONLY: Administer 1 spray (4 mg) in one nostril one time. May repeat in alternating nostrils every 2-3 min until responsive or EMS arrives. 2 Each 3 1 Active sennosides-docusa te sodium (SENNA-S) 8.6-50 mg tabletIndications :Therapeutic opioid induced constipation Take 1 Tablet by mouth 2 times daily. 60 Tablet 5 1 Active levocetirizine (XYZAL) 5 mg tablet Take 1 Tablet (5 mg) by mouth late in the day. 90 Tablet 3 1 Active cannabidiol, CBD, product, for documentation purposes, Take by mouth 2 times daily. Active oxyCODONE-acetami nophen (Percocet) 10-325 mg TabletIndications :Left wrist pain Take 1 Tablet by mouth every 4 hours as needed for Pain, Severe. Max Daily Amount: 6 Tablets 40 Tablet 08/27/2020 12:06 PM CDT 1 Active zolpidem (AMBIEN) 10 mg tabletIndications :Primary insomnia Take 1 Tablet (10 mg) by mouth nightly as needed for Insomnia. 30 Tablet 1 Active Active Problems Problem Noted Date Diagnosed Date JESUS (generalized anxiety disorder) 01/14/2020 Body mass index (BMI) of 40.0 to 44.9 in adult 0 12/09/2019 [facility] prescription opiate use 12/09/2019 Cardiac arrhythmia 12/09/2019 H/O cardiac radiofrequency ablation 12/09/2019 Vitamin D deficiency 12/09/2019 Primary insomnia 11/25/2019 Non-seasonal allergic rhinitis 11/25/2019 Obstructive sleep apnea 11/25/2019 Essential hypertension 11/25/2019 Gastroesophageal reflux disease without esophagi tis 11/25/2019 Acute transverse myelitis 11/22/2019 Family History Medical History Relation Name Comments Osteoporosis Neg Hx Social History Tobacco Use Types Packs/Day Years Used Date Smoking Tobacco: Former Cigarettes 1 10 0 03/20/1970 - 03/20/1980 Smokeless Tobacco: Current Alcohol Use Standard Drinks/Week Comments Not Currently 0 (1 standard drink = 0.6 oz pur e alcohol) Sex and Gender Information Value Date Recorded Sex Assigned at Not on file Legal Sex Male 3:54 PM CDT Gender Identity Not on file Sexual Orientation Not on file Last Filed Vital Signs Vital Sign Reading Time Taken Comments Blood Pressure 118/68 08/14/2020 2:45 PM CDT Pulse 77 08/14/2020 2:45 PM CDT Temperature 36.1 C (97 F) 08/14/2020 1:50 PM CDT Respiratory Rate 17 08/14/2020 1:50 PM CDT Oxygen Saturation 94% 08/14/2020 2:45 PM CDT Inhaled Oxygen Concentration - - Weight 119.7 kg (264 lb) 08/27/2020 10:54 AM CDT Height 167.6 cm (5' 6 ) 08/27/2020 10:54 AM CDT Body Mass Index 42.61 08/27/2020 10:54 AM CDT Plan of Treatment Health Maintenance Due Date Last Done Comments Pre-Diabetes and Diabetes Screening 1965 FIT/ DNA Q 3 YEARS (AUTO ORDER) 12/21/1983 FIT/FOBT Q 1 YEAR (AUTO ORDER) 12/21/1983 FLEX SIG/CT COLONOGRAPHY Q 5 YEARS (AUTO ORDER) 12/21/1983 DTAP/TDAP/TD VACCINES (1 - Tdap) 1984 HEPATITIS B VACCINES (1 of 3 - 19+ 3-dose series) 1984 FIT-DNA Q 3 years 2010 FIT/FOBT Q 1 year 2010 Flex Sig/CT Colonography Q 5 years 2010 ZOSTER VACCINE (1 of 2) 12/21/2015 [place] ([place]) Prev entative Visit/Annual Wellness Visit 03/20/2024 INFLUENZA VACCINE (#1) 2024 12/09/2019 COLORECTAL CANCER SCREENING (AUTO ORDER) 03/15/2033 03/15/2023, 03/15/2023 COLORECTAL SCREENING 03/15/2033 03/15/2023, 03/15/20 Colorectal Cancer Screening (AUTO ORDER) 03/15/2033 Colorectal Cancer Screening 03/15/2033 Medical Devices Implanted Type Area Professor Of Business Device Identifier Shelf Expiration Date Model / Serial / Lot Hand/Wrist Internal Brace Sys Ar-8978-Cp - [id number] Implanted:Qty: 1 on 08/14/2020 by Ashley Cordoba MD at [facility] Left: Hand [employer] [id number] 06/17/2025 AR-8978-C P / / [id number] Wire K Trocar Dbl .[id number] - [id number] Implanted:Qty: 1 on 08/14/2020 by Ashley Cordoba MD at [facility] Wire Left: Hand [employer] [id number] 05/05/2025 [id number]- [id number] / / [id number] Wire K Trocar Dbl .[id number] - [id number] Implanted:Qty: 1 on 08/14/2020 by Ashley Cordoba MD at [facility] Wire Left: Hand [employer] [id number] 05/05/2025 [id number] [id number] / / NU4RH Insurance [facility] DUAL COMPLETE RX [employer] RX Member Subscriber Plan / Payer (Ef fective 2020-Present) Name:Cal Paredes Relation to Subscriber:Self Name:CAL PAREDES Subscriber ID:Not on file Payer ID:Not on file Group ID:[id number] Type:RX Medicare Part D Address: [place] Care Teams Charter Boat Captain Relationship Specialty Start Date End Date Andrés Cohn MD [address] [phone] PCP - General Family Practice 12/09/19
--- OUTSIDE RECORDS SUMMARY | 2025-01-27 11:23 | XMS_ITS | Encounter Summary ---
Author Organization [facility] Address [address] [place] [address] Care Team Providers Care Coil Maker Name Role Phone Andrés Cohn MD Primary Care Provider [phone] Reason for Visit * Reason Onset Date Comments Medication Refill 01/22/2025 Encounter Details Date Type Department Care Team (Late st Contact Info) Description 01/22/2025 Refill [facility] Family Medicine [address] [phone] Andrés Cohn MD [address] [phone] Chronic midline low back pain with bilateral sciatica Social History Tobacco Use Types Packs/Day Years [...] on file Legal Sex Male 12:06 AM [employer] Gender Identity Not on file Sexual Orientation Not on file documented as of this encounter Miscellaneous Notes * Telephone Encounter - Fatoumata Tuttle RN - 01/23/2025 2:32 PM [employer] Medication Refill Request Last Fill Date:01/01/25 #40 Recent and Future Visits: Recent Visits Date Type Provider Dept 12/06/24 Office Visit Andrés Cohn MD [facility] 05/13/24 Office Visit Andrés Cohn MD [facility] 03/22/24 Office Visit Becca Olsen FNP [facility] 11/09/23 Office Visit Andrés Cohn MD [facility] 09/11/23 Office Visit Andrés Cohn MD [facility] 08/11/23 Office Visit Becca Olsen [facility] Showing recent visits within past 540 days with a meds authorizing provider and meeting all other requirements Future Appointments Date Type Provider Dept 01/31/25 Appointment Andrés Cohn MD [facility] Showing future appointments within next 365 days with a meds authorizing provider and meeting all other requirements Last Labs: [employer] documented in this encounter Plan of Treatment Upcoming Encounters Date Type Department Care Team (Late st Contact Info) Description 01/31/2025 3:40 PM [employer] Office Visit [address] [phone] Andrés Cohn MD [address] [phone] documented as of this encounter Visit Diagnoses Diagnosis Chronic midline low back pain with bilateral sciatica documented in this encounter Additional Health Concerns Assessment Noted Time PHQ-9 Depression Total Score: 3 12/06/19 25 9:04 PM CDT documented as of this encounter Care Teams Coil Maker Relationship Specialty Start Date End Date Andrés Cohn MD [address] [phone] PCP - General Family Practice 12/09/19 documented as of this encounter
[2025-01-27 11:27] VITALS: BP 172/96; PULSE 69; TEMP 36.7; O2SAT 98
[2025-01-27 11:36] LABS: Hematocrit 45.9 % (37-53); Hemoglobin 15.10 g/dL (11.27-16.99); Mean Corpuscular HGB Conc 32.9 g/dL (30-55); Mean Corpuscular Hemoglobin 30.3 pg (27-33); Mean Corpuscular Volume 92.0 fl (82-101); Nucleated Red Blood Cells % 0 %; Platelet Count 233 10^3/cmm (157-399); Red Blood Count 4.99 10^6/uL (3.85-5.65); White Blood Count 9.22 10^3/uL (3.29-11.43)
[2025-01-27 11:49] LABS: INR 0.96 (0.8-1.2); Prothrombin Time 13.40 SECONDS (12.1-14.9)
[2025-01-27 11:50] LABS: Partial Thromboplastin Time 26.0 SECONDS (23.9-36.7)
[2025-01-27 11:59] LABS: Troponin(5th) Baseline 11 ng/L (0-15)
[2025-01-27 12:04] LABS: Alanine Aminotransferase 34 U/L (0-41); Albumin Level 4.3 g/dL (3.5-5.2); Alkaline Phosphatase 98 U/L (40-130); Anion Gap 15.7 (5-19); Aspartate Amino Transferase 23 U/L (0-40); Blood Urea Nitrogen 12 mg/dL (6-20); Calcium 8.8 mg/dL (8.5-10.5); Carbon Dioxide 24 mmol/L (22-29); Chloride 107 mmol/L (98-107); Creatinine Clr Calc Pharmacy 134.4201; Globulin 2.1 g/dL (1.3-4.6); Glucose 97 mg/dL (65-115); Lipase 21 U/L (13-60); NT Pro B Type Natriuretic Pept < 36 pg/mL (0-125); Osmolality Calculated 294 mOsm/kg (285-295); Potassium 4.7 mmol/L (3.5-5.1); Sodium 142 mmol/L (136-145); Total Protein 6.4 g/dL (6.6-8.7)
[2025-01-27 12:07] VITALS: BP 128/85; PULSE 65; RESP 21; O2SAT 95
[2025-01-27 12:59] VITALS: BP 136/61; PULSE 63; RESP 22; O2SAT 95
[2025-01-27 13:28] LABS: Troponin 5 2HR 9.75 ng/L (0-15)
[2025-01-27 13:29] LABS: Troponin 5 2HR Delta -1.25 ABS# (0-10)
--- NOTE | 2025-01-27 13:29 | ECG_ITS ---
[facility] Test Date: 2025-01-27 Pat Name: Cal Thapa Department: Room: Gender: Male Cook Pressure: : 1965 Requested By: Zayda Cooper Order Number: [id number] Corey MD: Judah Leija M.D. Measurements Intervals [place] Rate: 62 P: 42 MI: 183 QRS: -65 QRSD: 130 T: 22 QT: 387 QTc: 395 Interpretive Statements SINUS RHYTHM LEFT AXIS DEVIATION [QRS AXIS < -30] MODERATE INTRAVENTRICULAR CONDUCTION DELAY [110+ ms QRS DURATION] Compared to ECG 01/27/2025 11:25:32 Left-axis deviation now present Intraventricular conduction delay now present Right bundle-branch block no longer present Left anterior fascicular block no longer present Electronically Signed On 01-27-2025 18:14:09 LEAD MEDICAL TECHNOLOGIST by Judah Leija M.D. [email or web address]
[2025-01-27 13:50] VITALS: BP 144/91; PULSE 70; O2SAT 97
== END 2025-01-27 13:51 | disposition home or self-care (01) ==
PROVIDERS: Emergency Provider Emergency Medicine; PCP Family Medicine
DX: R07.89 Other chest pain (principal); F17.220 Nicotine dependence, chewing tobacco, uncomplicated; E78.2 Mixed hyperlipidemia; I10 Essential (primary) hypertension
CPT/HCPCS: 36415; 71045; 80053; 83690; 83880; 84484; 85025; 85610; 85730; 93005; 99285; J9999

== ENCOUNTER 2025-02-15 08:20 | Emergency (ER) | payer MEDICARE, SELFPAY ==
[2025-02-15 08:24] VITALS: BP 165/100; PULSE 100; RESP 17; TEMP 36.6; O2SAT 98; BMI 41.9
--- OUTSIDE RECORDS SUMMARY | 2025-02-15 08:25 | XMS_ITS | Clinical Summary ---
Author Organization [facility] Address [address] [place] [address] Care Team Providers Care Fish Worm Grower Name Role Phone Andrés Cohn MD Primary Care Provider [phone] Allergies Active Allergy Reactions Criticality Noted Date Comments Gabapentin Other (See Comments) 11/22/2019 crazy Medications fluticasone propionate (FLONASE) 50 mcg/spray [place], Suspension nasal inhaler Administer 2 Sprays in [...] 1 1 Active naloxone (NARCAN) 4 mg/spray [place], Non-AerosolIndica tions:assisted prescription opiate use EMERGENCY USE ONLY: Administer [...] 40.0 to 44.9 in adult 0 12/09/2019 assisted prescription opiate use 12/09/2019 Cardiac arrhythmia 12/09/2019 [...] VACCINE (1 of 2) 12/21/2015 [place]) Prev entative Visit/Annual Wellness Visit 03/20/2024 INFLUENZA VACCINE (#1) 2024 12/09/2019 COLORECTAL CANCER SCREENING (AUTO ORDER) 03/15/2033 03/15/2023, 03/15/2023 COLORECTAL SCREENING 03/15/2033 03/15/2023, 03/15/20 Colorectal Cancer Screening (AUTO ORDER) 03/15/2033 Colorectal Cancer Screening 03/15/2033 Medical Devices Implanted Type Area Human Anatomy Teacher Device Identifier Shelf Expiration Date Model / Serial / Lot Hand/Wrist Internal Brace Sys Ar-8978-Cp - [id number] Implanted:Qty: 1 on 08/14/2020 by Ashley Cordoba MD at [facility] Left: Hand [employer] [id number] 06/17/2025 AR-8978-C P / / [id number] Wire K Trocar Dbl .[id number] - [id number] Implanted:Qty: 1 on 08/14/2020 by Ashley Cordoba MD at [facility] Wire Left: Hand [employer] [id number] 05/05/2025 [id number]- [id number] / / [id number] Wire K Trocar Dbl .[id number] - [id number] Implanted:Qty: 1 on 08/14/2020 by Ashley Cordoba MD at [facility] Wire Left: Hand [employer] [id number] 05/05/2025 [id number] / / [id number] Insurance [facility] DUAL COMPLETE RX [employer] RX Member Subscriber Plan / Payer (Ef fective 2020-Present) Name:Cal Paredes Relation to Subscriber:Self Name:CAL PAREDES Subscriber ID:Not on file Payer ID:Not on file Group ID:[id number] Type:RX Medicare Part D Address: [place] Care Teams Fish Worm Grower Relationship Specialty Start Date End Date Andrés Cohn MD [address] [phone] PCP - General Family Practice 12/09/19
--- OUTSIDE RECORDS SUMMARY | 2025-02-15 08:25 | XMS_ITS | Clinical Summary ---
Author Organization [facility] Address [address] [place] [address] Care Team Providers Care Body Builder Apprentice Name Role Phone Andrés Cohn MD Primary Care Provider [phone] Allergies Active Allergy Reactions Criticality Noted Date Comments Alpha-Gal (Vogfhaxdt-Lsgwe-9,3-Galac tose) Anaphylaxis,Abdominal Pain High 11/25/2022 Gabapentin Other (See Comments) 11/22/2019 crazy Insect Venom Anaphylaxis High 10/19/2021 Mirtazapine Itching Medium 10/19/2021 Medications CPAP / BIPAP suppliesIndicatio ns:Obstructive sleep apnea Length of need: 99 monthsMask Type: full face with headgear every 6 months, mask only every 3 months, Tubing: heated 1 every 3 months, water chamber 1 every 6 months, chin strap 1 every 6 months, filters disposable 2 per month, filters reusable 1 per 6 months. 1 Each 0 020 Active multivitamin (DAILY-JESSIE) tablet Take 1 Tablet by mouth daily. Active flecainide (TAMBOCOR) 150 mg Tablet Take 150 mg by mouth 2 times daily. Active cetirizine (ZyrTEC) 10 mg tabletIndications :Urticaria TAKE 1 TABLET BY MOUTH TWICE A DAY 180 Tablet 1 021 Active CPAP / BIPAP supplies Resmed CPAP [...] download feature and mask fitting. 1 Each 021 Active olopatadine (PATADAY) 0.2 % solution Administer 1 Drop in both eyes daily. 2.5 mL 2 Active hydroCHLOROthiazi de 25 mg tablet TAKE 1 TABLET BY MOUTH EVERY DAY NEEDED FOR EDEMA Active isosorbide mononitrate (IMDUR) 30 mg Extended Release 24 hour tablet Take 30 mg by mouth daily. Active losartan (COZAAR) 50 mg tablet Take 50 mg by mouth daily. Active ALBUTEROL INHALATION Take by inhalation. Active busPIRone (BUSPAR) 10 mg tablet Take 10 mg by mouth 3 times daily. 023 Active mupirocin (BACTROBAN) 2% OintmentIndicatio ns:Insect bite of right forearm, initial encounter Apply to affected area daily. 15 Gram 023 Active ergocalciferol (VITAMIN D2) 50,000 unit capsule TAKE 1 CAPSULE (50,000 UNITS) BY MOUTH EVERY 7 DAYS 12 Capsule 2 023 Active CYANOCOBALAMIN, VITAMIN B-12, ORAL Take 10,000 mcg by mouth daily. Active Saccharomyces boulardii (FLORASTOR) 250 mg Capsule Take 500 mg by mouth daily. Active EPINEPHrine (EPIPEN) 0.3 mg/0.3 mL Auto-InjectorIndi cations:History of anaphylaxis INJECT 0.3 ML (0.3 MG) BY INTRAMUSCULAR INJECTION 1 TIME DAILY NEEDED FOR ANAPHYLAXIS. 2 Each 1 024 Active hydrOXYzine HCL (ATARAX) 10 mg tablet Take 1 Tablet (10 mg) by mouth 3 times daily as needed for Anxiety. 30 Tablet 5 024 Active benzonatate (TESSALON) 200 mg capsule TAKE 1 CAPSULE BY MOUTH 3 TIMES A DAY NEEDED FOR COUGH 15 Capsule 024 Active diltiaZEM (CARDIZEM) 30 mg tablet Take 30 mg by mouth 2 times daily. Active albuterol sulfate HFA 90 mcg/actuation aerosol inhalerIndication s:Mild intermittent asthma without complication Take 2 Puffs by inhalation every 4 hours as needed for Shortness of Breath or Wheezing. 18 Gram 11 024 Active azelastine (ASTELIN) 137 mcg/actuation nasal sprayIndications: Seasonal allergic rhinitis, unspecified trigger SPRAY 2 SPRAYS IN EACH NOSTRIL 2 TIMES DAILY. 30 mL 5 024 Active baclofen (LIORESAL) 20 mg tablet TAKE 1 TABLET BY MOUTH 3 TIMES DAILY NEEDED FOR PAIN. DOSE INCREASE 300 Tablet 1 024 Active ondansetron (ZOFRAN) 8 mg Tablet TAKE 1 TABLET BY MOUTH EVERY 8 HOURS NEEDED FOR NAUSEA AND VOMITING FOR 7 DAYS 024 Active metoprolol tartrate (LOPRESSOR) 25 mg tablet 2 times daily. Activ e cyclobenzaprine (FLEXERIL) 10 mg tablet take 1 tablet by mouth three times a day as needed for muscle spasms Active pantoprazole (PROTONIX) 40 mg Tablet, Delayed Release (E.C.) Take 40 mg by mouth daily. 025 Active ezetimibe (ZETIA) 10 mg tablet TAKE 1 TABLET BY MOUTH EVERY DAY 100 Tablet 3 025 Active fluticasone propionate (FLONASE) 50 mcg/spray [place], Suspension nasal inhaler ADMINISTER 2 SPRAYS INTO EACH NOSTRIL EVERY DAY 48 mL 3 025 Active levocetirizine (XYZAL) 5 mg tablet TAKE 1 TABLET BY MOUTH LATE IN THE DAY 100 Tablet 3 025 Active ibuprofen (MOTRIN) 800 mg tabletIndications :Generalized osteoarthritis of multiple sites TAKE 1 TABLET BY MOUTH 1 TIME DAILY NEEDED FOR PAIN, MILD. 30 Tablet 5 025 Active doxycycline hyclate (VIBRAMYCIN) 100 mg tablet Take by mouth Continuous as needed. 025 Active buPROPion HCL (Wellbutrin SR) 150 mg Sustained Release 12 hour tabletIndications :Chewing tobacco nicotine dependence without complication,Mode rate major depression (CMS/HCC) Take 1 Tablet (150 mg) by mouth 2 times daily. Dose increase 60 Tablet 5 025 Active zolpidem (AMBIEN) 10 mg tabletIndications :Primary insomnia Take 1 Tablet (10 mg) by mouth nightly as needed for Insomnia. 30 Tablet 5 025 Active ketoconazole (NIZORAL) 2 % Shampoo APPLY 5 ML TO WET SANCHEZ, LATHER, LEAVE ON 3 MINUTES, AND RINSE, APPLY TWICE WEEKLY FOR 4 WEEKS 120 mL 1 025 Active HYDROcodone-aceta minophen (NORCO) 7.5-325 mg TabletIndications :Chronic midline low back pain with bilateral sciatica Take 1 Tablet by mouth 2 times daily as needed for Pain, Moderate. Max Daily Amount: 2 Tablets 40 Tablet 025 Active tirzepatide, weight loss, (Zepbound) 2.5 mg/0.5 mL Pen InjectorIndicatio ns:Morbid obesity with body mass index of 40.0-49.9 (CMS/HCC),Obstruc tive sleep apnea,Aortic atherosclerosis,E ssential hypertension Inject 0.5 mL (2.5 mg) by subcutaneous injection every 7 days. 2 mL 5 025 Active sennosides-docusa te sodium (SENNA-S) 8.6-50 mg tablet Take 1 Tablet by mouth 2 times daily. 180 Tablet 3 025 Active ketoconazole (NIZORAL) 2 % Shampoo APPLY 5 ML TO WET SANCHEZ, LATHER, LEAVE ON 3 MINUTES, AND RINSE, APPLY TWICE WEEKLY FOR 4 WEEKS 120 mL 1 023 2024 Discontinued(R eorder) semaglutide, weight loss, (WEGOVY) 0.25 mg/0.5 mL Pen InjectorIndicatio ns:Morbid obesity with body mass index of 40.0-49.9 (CMS/HCC),Essenti al hypertension,Obst ructive sleep apnea,Aortic atherosclerosis Inject 0.5 mL (0.25 mg) by subcutaneous injection every 7 days. 2 mL 5 025 2024 Discontinued HYDROcodone-aceta minophen (NORCO) 7.5-325 mg TabletIndications :Chronic midline low back pain with bilateral sciatica Take 1 Tablet by mouth 2 times daily as needed for Pain, Moderate. Max Daily Amount: 2 Tablets 40 Tablet 025 2024 Discontinued(R eorder) Active Problems Problem Noted Date Diagnosed Date Primary osteoarthritis of right knee 01/31/2025 Complex tear of medial menis cus of right knee as current injury 01/31/2025 Moderate major depression 12/06/2024 Chewing tobacco nicotine [...] Date JESUS (generalized anxiety disorder) 01/14/2020 03/02/2021 care home prescription opiate use 12/09/2019 03/02/2021 Acute transverse myelitis 11/22/2019 Encounters Date Type Department Care Team Description 02/04/2025 External Device Data ST[facility] ABSTRACTION Provider, Abstract 02/04/2025 External Device Data STL ABSTRACTION Provider, Abstract 01/31/2025 3:40 PM FLORIST Office Visit [address] [phone] Andrés Cohn MD Primary osteoarthritis of right knee (Primary Dx); Chronic midline low back pain with bilateral sciatica; Morbid obesity with body mass index of 40.0-49.9 (CMS/HCC); Obstructive sleep apnea; Aortic atherosclerosis; Essential hypertension; Complex tear of medial meniscus of right knee as current injury, initial encounter; Long-term use of high-risk medication; Screening for diabetes mellitus 01/31/[address] [phone] Andrés Cohn MD Morbid obesity with body mass index of 40.0-49.9 ([facility]); Obstructive sleep apnea; Aortic atherosclerosis; Essential hypertension 01/28/2025 Abstract [facility] [address] [phone] Andrés Cohn MD 01/28/2025 Orders Only [facility] [place] [address] [place] [address] Provider, Abstract 01/22/[address] [phone] Andrés Cohn MD Chronic midline low back pain with bilateral sciatica 01/20/[address] [phone] Andrés Cohn MD 01/08/2025 External Device Data STL ABSTRACTION Provider, Abstract [facility] [address] [phone] Andrés Cohn MD Primary insomnia 01/01/[address] [phone] Andrés Cohn MD Chronic midline low back pain with bilateral sciatica 12/31/2024 Medication Prior Auth Encounter [facility] [address] [place] [address] [place] [address] Claudia Balderas, PHARMACIST 12/30/[address] [phone] Andrés Cohn MD Chronic midline low back pain with bilateral sciatica 2024 Medication Prior Auth Encounter [address] [phone] Andrés Cohn MD 12/19/[address] [phone] Andrés oChn MD Medication Assistance 12/17/[address] [phone] Andrés Cohn MD Chronic midline low back pain with bilateral sciatica (Primary Dx); Chewing tobacco nicotine dependence without complication; Moderate major depression (CMS/HCC) 12/10/2024 External Device Data STL ABSTRACTION Provider, Abstract 12/10/2024 External Device Data STL ABSTRACTION Provider, Abstract 12/10/2024 External Device Data STL ABSTRACTION Provider, Abstract 12/06/2024 3:20 PM CDT Office Visit [address] [phone] Andrés Cohn MD Medicare annual wellness visit, subsequent (Primary Dx); Morbid obesity with body mass index of 40.0-49.9 (CMS/HCC); Essential hypertension; Obstructive sleep apnea; Aortic atherosclerosis; Chewing tobacco nicotine dependence without complication; Moderate major depression (CMS/HCC); Primary osteoarthritis of right knee; Complex tear of medial meniscus of right knee as current injury, initial encounter 12/06/[address] [phone] Andrés Cohn MD Morbid obesity with body mass index of 40.0-49.9 (CMS/HCC); Essential hypertension; Obstructive sleep apnea; Aortic atherosclerosis 12/03/2024 External Device Data STL ABSTRACTION Provider, Abstract 11/21/2024 11:00 AM CDT Office Visit [facility] [address] [place] [phone] Jose Morillo PA-C Chronic pain of right knee (Primary Dx); Preop testing 11/21/2024 10:55 AM CDT Ancillary Procedure [facility] [address] [place] [phone] Jose Morillo PA-C Chronic pain of right knee from Last 3 Months Family History Medical History Relation Name Comments Osteoporosis Neg Hx Social History Tobacco Use Types Packs/Day Years Used Date Smoking Tobacco: Former Cigarettes 1 Q uit: 03/20/1980 Smokeless Tobacco: Current Chew [...] on file Legal Sex Male 12:06 AM FLORIST Gender Identity Not on file Sexual Orientation Not on file Last Filed Vital Signs Vital Sign Reading Time Taken Comments Blood Pressure 130/82 01/31/2025 3:27 PM FLORIST Pulse 85 01/31/2025 3:27 PM FLORIST Temperature 36.8 C (98.2 F) 01/31/2025 3:27 PM FLORIST Respiratory Rate 18 01/31/2025 3:27 PM FLORIST Oxygen Saturation 98% 01/31/2025 3:27 PM FLORIST Inhaled Oxygen Concentration - - Weight 122 kg (269 lb) 01/31/2025 3:27 PM FLORIST Height 167.6 cm (5' 6 ) 01/31/2025 3:27 PM FLORIST Body Mass Index 43.42 01/31/2025 3:27 PM FLORIST Plan of Treatment Upcoming Encounters Date Type Department Care Team (Late st Contact Info) Description 05/06/2025 3:00 PM FLORIST Office Visit [facility] Medicine [address] [phone] Andrés Cohn MD [address] [facility] [address] [place] [address] Health Maintenance Due Date Last Done Comments FIT/FOBT Q 1 YEAR (AUTO ORDER) 12/21/1983 HEPATITIS B VACCINES (1 of 3 - 19+ 3-dose series) 1984 FIT/FOBT Q 1 year 2010 Flex Sig/CT Colonography Q 5 years 2010 ZOSTER VACCINE (1 of 2) 12/21/2015 INFLUENZA VACCINE (#1) 2024 , 07/08/2022, 12/09/2019, Additional history exists FIT-DNA Q 3 years 06/06/2025 06/06/2022 FIT/ DNA Q 3 YEARS (AUTO ORDER) 06/06/2025 3, 06/06/2022 DTAP/TDAP/TD VACCINES (3 - T d or Tdap) 10/10/2026 10/10/2016, 12/22/2009 FLEX SIG/CT COLONOGRAPHY Q 5 YEARS (AUTO ORDER) 06/07/2027 06/06/2022, 06/06/2022 Pre-Diabetes and Diabetes Screening 02/01/2028 01/31/2025, 05/31/2022 COLORECTAL CANCER SCREENING (AUTO ORDER) 03/15/2033 03/15/2023, 08/17/2017 COLORECTAL SCREENING 03/15/2033 03/15/2023, 08/18/19 18 Colorectal Cancer Screening (AUTO ORDER) 03/15/2033 Colorectal Cancer Screening 03/15/2033 Abdominal Aortic Aneurysm (A AA) Screening Completed 07/25/2019, 07/03/2014, 12/15/2013, Additional history exists Medicare Advantage ([place]) Preventative Visit/Annual Wellness Visit Completed 12/06/2024, 05/11/2023, 05/10/2022, Additional history exists Medical Devices Implanted Type Area Property Management Assistant Device Identifier Shelf Expiration Date Model / Serial / Lot Hand/Wrist Internal Brace Sys Ar-8978-Cp - [id number] Implanted:Qty: 1 on 08/14/2020 by Ashley Cordoba MD [place] Left: Hand [employer] [id number] 06/17/2025 AR-8978-CP / / [id number] Wire K Trocar Dbl .[id number] - [id number] Implanted:Qty: 1 on 08/14/2020 by Ashley Cordoba MD Wire Left: Hand [facility] [id number] 05/05/2025 [id number] [id number] / / [id number] Wire K Trocar Dbl .[id number] - [id number] Implanted:Qty: 1 on 08/14/2020 by Ashley Cordoba MD Wire Left: Hand [facility] [id number] 05/05/2025 [id number] / / [id number] Procedures Procedure Name Priority Date/Time Associated Diagnosis Comments TSH Routine 01/31/2025 4:13 PM FLORIST Morbid obesity with body mass index of 40.0-49.9 (CMS/HCC) Aortic atherosclerosis Essential hypertension HEMOGLOBIN A1C Routine 01/31/2025 4:13 PM FLORIST Morbid obesity with body mass index of 40.0-49.9 (CMS/HCC) Aortic atherosclerosis Essential hypertension Screening for diabetes mellitus HEPATIC FUNCTION PANEL Routine 01/31/2025 4:13 PM FLORIST Morbid obesity with body mass index of 40.0-49.9 (CMS/HCC) Aortic atherosclerosis Essential hypertension COMPREHENSIVE METABOLIC PANEL Routine 01/27/2025 10:57 AM FLORIST PROTIME-INR Routine 01/27/2025 XR KNEE 4+ VW RIGHT Routine 11/21/2024 1 1:19 AM CDT Chronic pain of right knee ENDOSCOPY, COLON, SCREENING Routine 03/15/2023 9:34 AM FLORIST COLON CANCER SCREEN, STOOL DNA Routine 06/06/2022 2:15 PM CDT Screening for colon cancer from Last 3 Months or Most Recently Relevant to Health Maintenance Results * TSH (01/31/2025 4:13 PM FLORIST) Pathologist [facility] TSH 0.70 0.40 - 4.50 mIU/L [facility] Comment: Test Performed at: [facility] [address] [facility] [place] [address] Fransico Berry MD Blood 01/31/2025 4:13 PM FLORIST 02/01/2025 5:42 AM FLORIST Andrés Cohn MD CHEMISTRY ORDERABLES Gretchen l Result [facility] [phone] [facility] [address] [place] [address] [place] [address] * (ABNORMAL) HEMOGLOBIN A1C (01/31/2025 4:13 PM FLORIST) Pathologist [facility] HEMOGLOBIN A1C 5.7(H) <5.7 % [facility] Comment: For someone without known diabetes, a hemoglobin A1c value between 5.7% and 6.4% is consistent with prediabetes and should be confirmed with a follow-up test. For someone with known diabetes, a value <7% indicates that their diabetes is well controlled. A1c targets should be individualized based on duration of diabetes, age, comorbid conditions, and other considerations. This assay result is consistent with an increased risk of diabetes. Currently, no consensus exists regarding use of hemoglobin A1c for diagnosis of diabetes for children. ESTIMATED AVERAGE GLUCOSE (MG/DL) 117 mg/dL [facility] ESTIMATED AVERAGE GLUCOSE (MMOL/L) 6.5 mmol/L [facility] Comment: Test Performed at: [facility] [address] [facility] [place] [address] Fransico Berry MD Blood 01/31/2025 4:13 PM FLORIST 02/01/2025 5:42 AM FLORIST Andrés Cohn MD CHEMISTRY ORDERABLES Gretchen l Result [facility] [phone] [facility] [phone] * HEPATIC FUNCTION PANEL (01/31/2025 4:13 PM FLORIST) Pathologist [facility] TOTAL PROTEIN 6.4 6.1 - 8.1 g/dL [facility] ALBUMIN 4.2 3.6 - 5.1 g/dL [facility] GLOBULIN 2.2 1.9 - 3.7 g/dL (calc) [facility] ALBUMIN/GLOBULIN RATIO 1.9 1.0 - 2.5 (calc) [facility] BILIRUBIN TOTAL 0.3 0.2 - 1.2 mg/dL [facility] BILIRUBIN DIRECT 0.1 < OR = 0.2 mg/dL [facility] BILIRUBIN INDIRECT 0.2 0.2 - 1.2 mg/dL (calc) [facility] ALKALINE PHOSPHATASE 92 35 - 144 U/L [facility] AST 20 10 - 35 U/L [facility] ALT 31 9 - 46 U/L [facility] Comment: Test Performed at: [facility] [address] Fransico Berry MD Blood 01/31/2025 4:13 PM FLORIST 02/01/2025 5:42 AM FLORIST Andrés Cohn MD CHEMISTRY ORDERABLES Gretchen l Result [facility] [phone] [facility] [employer] [address] * COMPREHENSIVE METABOLIC PANEL (01/27/2025 10:57 AM FLORIST) Blood us Abstract Provider CHEMISTRY ORDERABLES Final Res ult * PROTIME-INR (01/27/2025) Pathologist [facility] ABSTRACTED PROTIME 13.4 ABSTRACTED INR 0.96 Blood 01/27/2025 us Abstract Provider HEMATOLOGY ORDERABLES Final Re sult * XR KNEE 4+ VW RIGHT (11/21/2024 11:19 AM CDT) Anatomical Region Laterality Modality Lower Extremity Computed Radiogr aphy Narrative 11/25/2024 9:38 AM CDT 4 views of the affected right knee(s) were obtained at our institution. I have personally read the xrays and they show: -Tricompartmental compartment narrowing -Joint space narrowing is Severe -Osteophytes present -Subchondral sclerosis -Cystic formation us Jose Morillo PA-C [facility] Final Result * ENDOSCOPY, COLON, SCREENING (03/15/2023 9:34 AM FLORIST) us Abstract Provider GI PROCEDURE ORDERABLES Final Result * COLON CANCER SCREEN, STOOL DNA (06/06/2022 2:15 PM CDT) COLOGUARD RESULT Negative Negative [facility] Comment: NEGATIVE TEST RESULT. A negative [...] (Zac Khan al, N Engl J Med 2014;370(14):0340-3383) The normal value (reference range) for this assay is negative. COLOGUARD RE-SCREENING RECOMMENDATION: Periodic colorectal cancer screening is an important part of preventive healthcare for asymptomatic individuals at average risk for colorectal cancer. Following a negative Cologuard result, the [place] Cancer Society and U.S. Multi-Society Task Force screening guidelines recommend a Cologuard re-screening interval of 3 years. References: [place] [employer] Society Guideline for Colorectal Cancer Screening: https://www.cancer.org/cancer/gqrho-nzxkob-jhheci/mwwcdwyej-gvhmawrlq-boaateo/ac s-rec ommendations.html.; Eliot DK, Helen CR, Jeremías SmythK, Colorectal Cancer Screening: Recommendations for Physicians and Patients from the U.S. Multi-Society Task Force on Colorectal Cancer Screening , Am J Gastroenterology 2017; 112:6983-8064. TEST DESCRIPTION: Composite algorithmic analysis of stool [...] (Zac Khan al, N Engl J Med 2014;370(14):7547-0928.) Cologuard may produce a false negative or false positive result (no colorectal cancer or precancerous polyp present at colonoscopy follow up). A negative Cologuard test result does not guarantee the absence of CRC or advanced adenoma (pre-cancer). The current Cologuard screening interval is every 3 years. ([place] Cancer Society and U.S. Multi-Society Task Force). Cologuard performance data in a 10,000 patient pivotal study using colonoscopy as the reference method can be accessed at the following location: www.[employer]/results. Additional description of the Cologuard test process, warnings and precautions can be found at www.colInEdgerd.com. Stool STOOL SPECIMEN / Unknown 06/06/2022 2:15 PM CDT 06/07/2022 4:49 PM CDT Andrés Cohn MD BODY FLUIDS AND STOOLS Fi nal Result [facility] CLIA # [id number] [address] [facility], [address] [place] [address] from Last 3 Months or Most Recently Relevant to Health Maintenance [place] [address] [place] [id number] * Guarantor: CAL THAPA Account Type Relation to Patient Date of Phone Billing Address Personal/Family [id number] [place] [address] RX [employer] Member Subscriber Plan / Payer (Ef fective 2020-Present) Name:Cal Thapa Relation to Subscriber:Self Name:Cal Thapa Subscriber ID:Not on file Payer ID:Not on file Group ID:[id number] Type:RX Medicare Part D Address: [address] Care Teams Body Builder Apprentice Relationship Specialty Start Date End Date Andrés Cohn MD [address] [address] PCP - General Family Practice 12/09/19
--- NOTE | 2025-02-15 08:33 | W.ED.SKABFB ---
HPI - Skin/Abscess/Foreign Bdy General: Chief complaint: Skin/Abscess/Foreign Body Stated complaint: Rash on back SOB Time Seen by Provider: 02/15/25 08:24 Source: patient Mode of arrival: ambulatory Limitations: no limitations History of Present Illness: 59-year-old male states he woke up this morning with rash to his upper back. States that it is very painful and warm to touch. He denies any fevers he states has had rashes like this before that were allergic. He denies any worsening improving factors Related Data Home Medications ?Medication ?Instructions ?Recorded ?Confirmed albuterol sulfate 90 mcg/actuation 2 puff inhalation Q6H PRN sob 01/16/20 02/15/25 aerosol inhaler (Ventolin HFA) epinephrine 0.3 mg/0.3 mL 0.3 mg IM Q15M PRN Allergic 01/16/20 02/15/25 injection, auto-injector Reaction ezetimibe 10 mg tablet (Zetia) 10 mg PO DAILY 01/16/20 02/15/25 zolpidem 10 mg tablet (Ambien) 10 mg PO BEDTIME 02/06/20 02/15/25 levocetirizine 5 mg tablet 5 mg PO DAILY 11/08/23 02/15/25 azelastine 137 mcg (0.1 %) nasal 2 spray intranasal BID PRN 03/05/24 02/15/25 spray allergies ibuprofen 800 mg tablet 800 mg PO DAILY PRN Pain 03/05/24 02/15/25 pantoprazole 40 mg tablet,delayed 40 mg PO BID 10/03/24 02/15/25 release baclofen 20 mg tablet 20 mg PO TID PRN Pain 01/27/25 02/15/25 bupropion HCl 150 mg tablet,12 hr 150 mg PO BID 01/27/25 02/15/25 sustained-release cyclobenzaprine 10 mg tablet 10 mg PO Q8H PRN Muscle Spasm 01/27/25 02/15/25 hydrocodone 7.5 mg-acetaminophen 1 tab PO Q6H PRN pain 01/27/25 02/15/25 325 mg tablet ketoconazole 2 % shampoo See Rx Instructions .Route .COMPLEX 01/27/25 02/15/25 diphenhydramine HCl 25 mg capsule 25 mg PO TID PRN Allergic Reaction 02/15/25 02/15/25 (Benadryl) sennosides 8.6 mg-docusate sodium 1 tab-cap PO DAILY PRN Constipation 02/15/25 02/15/25 50 mg tablet (Senokot-S) Previous Rx's ?Medication ?Instructions ?Recorded nitroglycerin 0.4 mg sublingual 0.4 mg sublingual Q5M PRN chest 08/30/21 tablet (Nitrostat) pain #25 tabs fluticasone propionate 50 2 spray intranasal DAILY #48 grams 04/21/22 mcg/actuation nasal spray,suspension (Allergy Relief (fluticasone)) losartan 50 mg tablet 50 mg PO DAILY #90 tabs 02/26/24 diltiazem HCl 30 mg tablet 30 mg PO BID #180 tabs 04/16/24 Sole Supports #1 ea 05/16/24 bone stimulator #1 ea 05/16/24 Hinged Knee Brace, Right #1 ea 09/30/24 Cam boot to left #1 ea 10/25/24 orthopedic shoes with rocker #1 ea 01/08/25 bottom on the left buspirone 10 mg tablet 10 mg PO BID #180 tabs 01/27/25 cephalexin 500 mg capsule 500 mg PO TID 7 days #21 caps 02/15/25 hydrocodone 5 mg-acetaminophen 325 1 tab PO Q6H PRN pain #14 tabs 02/15/25 mg tablet prednisone 50 mg tablet 50 mg PO DAILY #5 tabs 02/15/25 Allergies Allergy/AdvReac Type Severity Reaction Status Date / Time insect venom Allergy Severe ALGY-Anaphy Verified 01/27/25 11:30 laxis mirtazapine Allergy Intermediate ITCHING Verified 01/27/25 11:30 Alpha-Gal Allergy ADR-Gastrointestinal Verified 01/27/25 11:30 ([id number],3-Gala Upset gabapentin Allergy UNKNOWN Verified 01/27/25 11:30 PFSH ED PFSH: Medical History (Updated 02/15/25 @ 09:11 by Stephen Mcguire MD) Acute viral syndrome Left shoulder pain Left arm numbness Combined hyperlipidemia Obesity Low back pain History of myelitis Sleep apnea HTN (hypertension) GERD (gastroesophageal reflux disease) JESSU (generalized anxiety disorder) Surgical History Hx of nasal sinusotomy History of placement of ear tubes S/P foot surgery Hx of hernia repair History of cardiac radiofrequency ablation (RFA) History of cholecystectomy Family History Sister Cancer Father Cancer Diabetes Mother CAD (coronary artery disease) Diabetes Sister Diabetes Social History Smoking and tobacco/nicotine status: current every day tobacco/nicotine user (chewing tobacco) Quit status (tobacco/nicotine): has quit using Second hand smoke exposure: No Alcohol intake: current Alcohol intake frequency: holidays/special occasions only Alcohol type: beer and hard liquor Substance/Drug Use: current Adopted: No Caregiver/support person: No Lives independently: Yes Household members: spouse Housing: House Marital status: Number of children: 2 Highest education level completed: High School Graduate service: No Current occupational status: disabled Pets and animals: Yes Leisure activites: hunting and fishing Sexually active: Yes Do you think of yourself as: Straight/Heterosexual Current gender identity: Male Fabby/Roman Catholic: Oriental Orthodox Special fabby needs: No Agree to transfusion: Yes Physical Exam Const: COMMON NORMALS: no acute distress, patient oriented x3 and healthy appearing HENMT: COMMON NORMALS: normocephalic and atraumatic HEAD & SCALP: normocephalic and atraumatic Eye: COMMON NORMALS: conjunctivae normal CONJUNCTIVA: Yes conjunctivae normal Neck/C-Spine: COMMON NORMALS: full ROM and supple Chest: COMMONS NORMALS: normal inspection of the chest Resp: COMMON NORMALS: normal respiratory effort Cardio: COMMON NORMALS: regular rate, regular rhythm and No murmurs present (Cardio) RATE: regular rate RHYTHM: regular rhythm Extremity: COMMON NORMALS: normal to inspection and full ROM Neuro: COMMON NORMALS: patient oriented x3, moves all extremities and no focal motor deficits Psych: COMMON NORMALS: mental status grossly normal, Normal thought process present and cooperative THOUGHT PROCESS: Normal thought process present Skin: COMMON NORMALS: no wounds NARRATIVE SKIN EXAM: Rash noted to upper back warm to touch raised Course Vital Signs: Vital signs: Vital Signs Temperature 97.8 F 02/15/25 08:24 Pulse Rate 103 H 02/15/25 09:01 Respiratory Rate 20 H 02/15/25 08:42 Blood Pressure 141/87 02/15/25 09:01 Pulse Oximetry 91 02/15/25 09:01 Oxygen Delivery Me thod Room Air 02/15/25 09:01 MDM - Skin/Abscess/Foreign Bdy Medicial Decision Making Patient presents with rash to his upper back. Likely allergic in nature did give him Solu-Medrol Pepcid and Benadryl. Will prescribe him prednisone for home. Has some slight warmth to it we will prescribe Keflex as well. He stable for discharge follow-up with PCP return if worsening Medical Records I reviewed the patient's medical records. No radiology studies performed this visit Discharge Plan Discharge Patient Disposition: Home Clinical Impression: Rash Condition: Stable Prescriptions: New hydrocodone-acetaminophen 5-325 mg tablet 1 tab PO Q6H PRN (Reason: pain) Qty: 14 0RF prednisone 50 mg tablet 50 mg PO DAILY Qty: 5 0RF cephalexin 500 mg capsule 500 mg PO TID 7 Days Qty: 21 0RF No Action zolpidem [Ambien] 10 mg tablet 10 mg PO BEDTIME nitroglycerin [Nitrostat] 0.4 mg tablet, sublingual 0.4 mg sublingual Q5M PRN (Reason: chest pain) Qty: 25 3RF Rx Instructions: do not exceed 3 doses per episode ezetimibe [Zetia] 10 mg tablet 10 mg PO DAILY albuterol sulfate [Ventolin HFA] 90 mcg/actuation HFA aerosol inhaler 2 puff INHALATION Q6H PRN (Reason: sob) epinephrine 0.3 mg/0.3 mL auto-injector 0.3 mg IM Q15M PRN (Reason: Allergic Reaction) Rx Instructions: for 2 doses levocetirizine 5 mg tablet 5 mg PO DAILY losartan 50 mg tablet 50 mg PO DAILY Qty: 90 3RF (DME) bone stimulator See Rx Instructions .Route .MEDSUPPLY Qty: 1 0RF Rx Instructions: As directed (DME) Sole Supports See Rx Instructions .Route .MEDSUPPLY Qty: 1 0RF Rx Instructions: As directed (DME) orthopedic shoes with rocker bottom on the left See Rx Instructions .Route .MEDSUPPLY Qty: 1 0RF Rx Instructions: As directed (DME) Hinged Knee Brace, Right See Rx Instructions .Route .MEDSUPPLY Qty: 1 0RF Rx Instructions: As directed (DME) Cam boot to left See Rx Instructions .Route .MEDSUPPLY Qty: 1 0RF Rx Instructions: As directed fluticasone propionate [Allergy Relief (fluticasone)] 50 mcg/actuation spray,suspension 2 spray INTRANASAL DAILY Qty: 48 0RF Rx Instructions: administer into each nostril diltiazem HCl 30 mg tablet 30 mg PO BID Qty: 180 3RF buspirone 10 mg tablet 10 mg PO BID Qty: 180 3RF bupropion HCl 150 mg tablet sustained-release 12 hr 150 mg PO BID ketoconazole 2 % shampoo See Rx Instructions .ROUTE .COMPLEX Rx Instructions: APPLY 5 MLS TO WET SANCHEZ, LATHER, LEAVE ON 3 MINUTES, AND RINSE, APPLY TWICE WEEKLY FOR 4 WEEKS. baclofen 20 mg tablet 20 mg PO TID PRN (Reason: Pain) cyclobenzaprine 10 mg tablet 10 mg PO Q8H PRN (Reason: Muscle Spasm) hydrocodone-acetaminophen 7.5-325 mg tablet 1 tab PO Q6H PRN (Reason: pain) sennosides-docusate sodium [Senokot-S] 8.6-50 mg Tablet 1 tab-cap PO DAILY PRN (Reason: Constipation) diphenhydramine HCl [Benadryl] 25 mg Capsule 25 mg PO TID PRN (Reason: Allergic Reaction) ibuprofen 800 mg tablet 800 mg PO DAILY PRN (Reason: Pain) azelastine 137 mcg (0.1 %) spray,non-aerosol 2 spray INTRANASAL BID PRN (Reason: allergies) pantoprazole 40 mg tablet,delayed release (DR/EC) 40 mg PO BID Discharge Orders: Discharge ED (Routine); Ordered 02/15/25 Ordered By: Stephen Mcguire Referrals: Andrés Cohn [Primary Care Provider, Family Practice] - 4-7 days Discharge Diet: Advance as tolerated Discharge Activity: Resume usual activity Patient Instructions: Acute Rash (ED) Print Language: Sudanese Coding Level of Care Code ED Noise Abatement Engineer for Lazarus Meyers
[2025-02-15] MEDS: methylPREDNISolone sod succ 125 mg/2 mL INJ IVP (08:36)
[2025-02-15] MEDS: ondansetron 2 mg/ML SDV 2 mL 4 MG IVP (08:39)
[2025-02-15] MEDS: diphenhydrAMINE 50 mg/mL SDV 1mL IVP (08:40)
[2025-02-15 08:42] VITALS: RESP 20
[2025-02-15] MEDS: morphine 4 mg/mL SDV 1 mL IVP (08:42)
[2025-02-15 09:01] VITALS: BP 141/87; PULSE 103; O2SAT 91
[2025-02-15] MEDS: HYDROmorphone 0.5 MG/0.5 ML INJ 1 MG IVP (09:16)
[2025-02-15 10:07] VITALS: BP 137/88; PULSE 70; O2SAT 96
== END 2025-02-15 10:09 | disposition home or self-care (01) ==
PROVIDERS: Emergency Provider Emergency Medicine; PCP Family Medicine
DX: R21 Rash and other nonspecific skin eruption (principal); F17.220 Nicotine dependence, chewing tobacco, uncomplicated; E78.2 Mixed hyperlipidemia
CPT/HCPCS: 96374; 96375; 99284; J1171; J1200; J2270; J2405; J2919; J3490